=== PATIENT | male | born 1955 | race Caucasian/White ===

== ENCOUNTER 2018-02-21 15:40 | Emergency (ER) | payer MEDICARE, OTHER ==
[~2018-02-21] VITALS: Ht 188 cm; Wt 126.1 kg
--- OUTSIDE RECORDS SUMMARY | ~2018-02-21 | XMS | Clinical Summary ---
Demographics + + + | Address | [address] | | | [place] [address] | + + + | Home Phone | | + + + | Preferred Language | Unknown | + + + | Marital Status | | + + + | Yazdanism Affiliation | Unknown | + + + | Race | Unknown | + + + | Ethnic Group | Unknown | + + + Author + + + | Author | [facility] | | | and [place] | + + + | Organization | [facility] | | | and [place] | + + + | Address | Unknown | + + + | Phone | Unavailable | + + + Support + + + + + | Name | Relationship | Address | Phone | + + + + + | Carol Ross | ECON | [address] | | | | | [place] | | | | | [address] | | + + + + + | Kaley King | ECON | [address] | | | | | [place] [address] | | + + + + + Care Team Providers + +------+ + | Care Bottle Label Inspector Name | Role | Phone | + +------+ + | Edwin Clark DO | PP | | + +------+ + Allergies + + + + + + | Active Allergy | Reactions | Severity | Noted | Comments | | | | | Date | | + + + + + + | Cephalexin | | | 02//20 | | | | | | 18 | | + + + + + + | Guaifenesin | | | 02/20 | | | | | | 18 | | + + + + + + | Ketorolac | | | 20 | | | | | | 18 | | + + + + + + | Lisinopril | | | 20 | | | | | | 18 | | + + + + + + | Penicillins | | | 20 | | | | | | 18 | | + + + + + + | Propoxyphene | | | 20 | | | | | | 18 | | + + + + + + | Tramadol | | | 11/28/19 | | | | | | 18 | | + + + + + + Current Medications + + +---------+---------+------+------+-------+ | Prescription | Sig. | Disp. | Refills | Star | End | Statu | | | | | | t | Date | s | | | | | | Date | | | + + +---------+---------+------+------+-------+ | aspirin 81 mg EC | Take 81 mg by mouth | | | | | Activ | | tablet | Daily. | | | | | e | + + +---------+---------+------+------+-------+ | atorvaSTATin | Take 20 mg by mouth | | | | | Activ | | (LIPITOR) 20 mg | nightly. | | | | | e | | tablet | | | | | | | + + +---------+---------+------+------+-------+ | busPIRone (BUSPAR) | Take 10 mg by mouth | | | | | Activ | | 10 MG tablet | 2 times daily. | | | | | e | + + +---------+---------+------+------+-------+ | clindamycin | Apply topically 2 | | | | | Activ | | (CLEOCIN T) 1 % | times daily. Apply | | | | | e | | lotion | topically between | | | | | | | | toes twice daily on | | | | | | | | rash | | | | | | + + +---------+---------+------+------+-------+ | clopidogrel | Take 75 mg by mouth | | | | | Activ | | (PLAVIX) 75 mg | Daily. | | | | | e | | tablet | | | | | | | + + +---------+---------+------+------+-------+ | clotrimazole | Apply 1 Application | | | | | Activ | | (LOTRIMIN) 1% cream | topically 2 times | | | | | e | | | daily. Apply | | | | | | | | topically to right | | | | | | | | lower leg twice | | | | | | | | daily | | | | | | + + +---------+---------+------+------+-------+ | DULoxetine | Take 60 mg by mouth | | | | | Activ | | (CYMBALTA) [address] | Daily. | | | | | e | | capsule | | | | | | | + + +---------+---------+------+------+-------+ | insulin lispro | Inject 10 Units | | | | | Activ | | (HUMALOG KWIKPEN) | under the skin 3 | | | | | e | | 200 units/mL | times daily (before | | | | | | | concentrated | meals). | | | | | | | injection (pen) | | | | | | | + + +---------+---------+------+------+-------+ | isosorbide | Take 30 mg by mouth | | | | | Activ | | dinitrate (ISORDIL) | Daily. | | | | | e | | 30 MG tablet | | | | | | | + + +---------+---------+------+------+-------+ | Insulin Glargine | Inject 62 Units | | | | | Activ | | (LANTUS SOLOSTAR SC) | under the skin | | | | | e | | | nightly. 5x3ml | | | | | | + + +---------+---------+------+------+-------+ | pregabalin | Take 150 mg by mouth | | | | | Activ | | (LYRICA) 150 MG | 3 times daily. | | | | | e | | capsule | | | | | | | + + +---------+---------+------+------+-------+ | metFORMIN | Take 500 mg by mouth | | | | | Activ | | (GLUCOPHAGE) 500 mg | 2 times daily (with | | | | | e | | tablet | breakfast & | | | | | | | | dinner). | | | | | | + + +---------+---------+------+------+-------+ | metoprolol | Take 25 mg by mouth | | | | | Activ | | tartrate (LOPRESSOR) | 2 times daily. | | | | | e | | 25 mg tablet | | | | | | | + + +---------+---------+------+------+-------+ | PRODIGY LANCETS | by Does not apply | | | | | Activ | | 28G MISC | route 3 times daily. | | | | | e | | | Use three times | | | | | | | | daily to test blood | | | | | | | | glucose | | | | | | + + +---------+---------+------+------+-------+ | raNITIdine | Take 150 mg by mouth | | | | | Activ | | (ZANTAC) 150 mg | nightly. | | | | | e | | tablet | | | | | | | + + +---------+---------+------+------+-------+ | rOPINIRole | Take 2 mg by mouth | | | | | Activ | | (REQUIP) 2 MG tablet | Daily (at Noon). | | | | | e | + + +---------+---------+------+------+-------+ | rOPINIRole | Take 3 mg by mouth | | | | | Activ | | (REQUIP) 2 MG tablet | nightly. | | | | | e | + + +---------+---------+------+------+-------+ | terbinafine | Take 250 mg by mouth | | | 01/ | | Activ | | (LAMISIL) 250 MG | Daily. Take one | | | 7/20 | | e | | tablet | tablet daily until | | | 18 | | | | | gone | | | | | | + + +---------+---------+------+------+-------+ | insulin pen needle | by Other route as | | | | | Activ | | (PRODIGY SHORT PEN | needed for Other. | | | | | e | | NEEDLES) 31 gauge x | Use to inject with | | | | | | | 8 mm | insulin pen as | | | | | | | | directed. | | | | | | + + +---------+---------+------+------+-------+ | triamcinolone | Apply topically | | | / | | Activ | | (KENALOG) 0.1% cream | Three times a week. | | | 05/10 | | e | | | Apply topically to | | | 18 | | | | | right lower leg/foot | | | | | | | | 3 times a week at | | | | | | | | bandage change. | | | | | | + + +---------+---------+------+------+-------+ | ascorbic acid | Take 500 mg by mouth | | | | | Activ | | (VITAMIN C) 500 mg | Daily. | | | | | e | | tablet | | | | | | | + + +---------+---------+------+------+-------+ | cholecalciferol | Take 2,000 Units by | | | | | Activ | | (VITAMIN D-3) 1,000 | mouth Daily. | | | | | e | | units capsule | | | | | | | + + +---------+---------+------+------+-------+ | | Inhale 1 puff into | | | | | Activ | | albuterol-ipratropiu | the lungs every 6 | | | | | e | | m (COMBIVENT | hours as needed for | | | | | | | RESPIMAT) 100-20 | Shortness of Breath. | | | | | | | mcg/puff inhaler | | | | | | | + + +---------+---------+------+------+-------+ | docusate sodium | Take 100 mg by mouth | | | | | Activ | | (DOK) 100 mg capsule | Daily as needed for | | | | | e | | | Constipation. | | | | | | + + +---------+---------+------+------+-------+ | | Take 3 mLs by | | | | | Activ | | albuterol-ipratropiu | nebulization every 6 | | | | | e | | m (DUONEB) 2.5-0.5 | hours as needed for | | | | | | | mg/3 mL SOLN | Wheezing or | | | | | | | | Shortness of Breath. | | | | | | + + +---------+---------+------+------+-------+ | melatonin 3 mg | Take 3 mg by mouth | | | | | Activ | | TABS | nightly as needed | | | | | e | | | for Insomnia. | | | | | | + + +---------+---------+------+------+-------+ | naloxone (NARCAN) | 4 mg by Nasal route | | | | | Activ | | 4 mg/nasal spray | as needed for | | | | | e | | | Decreased | | | | | | | | Responsiveness. Only | | | | | | | | to be used when | | | | | | | | directed by 911, Md, | | | | | | | | or HSD. | | | | | | + + +---------+---------+------+------+-------+ | ondansetron | Take 4 mg by mouth | | | | | Activ | | (ZOFRAN ODT) 4 mg | every 12 hours as | | | | | e | | disintegrating | needed for Nausea. | | | | | | | tablet | | | | | | | + + +---------+---------+------+------+-------+ | oxyCODONE | Take 15 mg by mouth | | | | | Activ | | (ROXICODONE) 15 mg | EVERY 4 TO 6 HOURS | | | | | e | | immediate release | NEEDED for Pain. | | | | | | | tablet | For a max of 4 per | | | | | | | | day. | | | | | | + + +---------+---------+------+------+-------+ | torsemide | Take 5 mg by mouth | | | | | Activ | | (DEMADEX) 5 mg | Daily as needed. For | | | | | e | | tablet | edema, hold for | | | | | | | | SBP<100 | | | | | | + + +---------+---------+------+------+-------+ | omeprazole | Take 1 capsule by | 30 | 5 | 02/0 | | Activ | | (PRILOSEC) 40 MG | mouth every morning | capsule | | 7/20 | | e | | capsuleIndications: | (before breakfast). | | | 18 | | | | Gastroesophageal | | | | | | | | reflux disease | | | | | | | | without esophagitis | | | | | | | + + +---------+---------+------+------+-------+ | silver | Apply topically 2 | 400 g | 5 | 02/0 | | Activ | | sulfADIAZINE | times daily. | | | 7/20 | | e | | (SILVADENE) 1% | | | | 18 | | | | creamIndications: | | | | | | | | Venous stasis | | | | | | | | dermatitis of both | | | | | | | | lower extremities | | | | | | | + + +---------+---------+------+------+-------+ | glucose blood | Apply 1 each | 300 | 3 | 03/2 | | Activ | | test strips (PRODIGY | topically 3 times | each | | 04/10 | | e | | NO CODING BLOOD | daily. | | | 18 | | | | GLUC) | | | | | | | | stripIndications: | | | | | | | | Type 2 diabetes | | | | | | | | mellitus with | | | | | | | | hyperglycemia, | | | | | | | | without long-term | | | | | | | | current use of | | | | | | | | insulin (HCC) | | | | | | | + + +---------+---------+------+------+-------+ | | Take 1 tablet by | 28 | 0 | 04/0 | 04 | Disco | | sulfamethoxazole-tri | mouth 2 times daily | tablet | | 07/11 | 2/20 | ntinu | | methoprim (BACTRIM | for 14 days. | | | 18 | 18 | ed | | DS) 800-160 mg per | | | | | | | | tablet | | | | | | | + + +---------+---------+------+------+-------+ | | Take 1 tablet by | 28 | 0 | 04/1 | 04/1 | Disco | | sulfamethoxazole-tri | mouth 2 times daily | tablet | | 2/20 | 2/20 | ntinu | | methoprim (BACTRIM | for 14 days. | | | 18 | 18 | ed | | DS) 800-160 mg per | | | | | | | | tablet | | | | | | | + + +---------+---------+------+------+-------+ | | Take 1 tablet by | 28 | 0 | 04/1 | 04/1 | Disco | | sulfamethoxazole-tri | mouth 2 times daily | tablet | | 2/20 | 2/20 | ntinu | | methoprim (BACTRIM | for 14 days. | | | 18 | 18 | ed | | DS) 800-160 mg per | | | | | | | | tablet | | | | | | | + + +---------+---------+------+------+-------+ | | Take 1 tablet by | 28 | 0 | 04/1 | 04/2 | Expir | | sulfamethoxazole-tri | mouth 2 times daily | tablet | | 2/20 | 6/20 | ed | | methoprim (BACTRIM | for 14 days. | | | 18 | 18 | | | DS) 800-160 mg per | | | | | | | | tablet | | | | | | | + + +---------+---------+------+------+-------+ Active Problems + + + | Problem | Noted Date | + + + | Open wound of right foot | 02/07/2018 | + + + | History of penicillin allergy | 11/28/2017 | + + + | Tobacco use disorder, moderate, dependence | 11/28/2017 | + + + | Dependent on wheelchair | 11/28/2017 | + + + | Class 2 obesity due to excess calories with serious comorbidity | 11/28/2017 | | and body mass index (BMI) of 36.0 to 36.9 in adult | | + + + | BAL inhibitor intolerance | 11/28/2017 | + + + | Tramadol allergy | 11/28/2017 | + + + | technician terminal and repeater current use of opiate analgesic | 09/05/2017 | + + + | Type 2 diabetes mellitus with hyperglycemia, without long-term | 09/05/2017 | | current use of insulin (HCC) | | + + + | Qxvyfcs-Kglro-Zqkva disease type 1 | 09/05/2017 | + + + | Pure hypercholesterolemia | 09/05/2017 | + + + | 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 | 09/05/2017 | | condition | | + + + | Venous stasis dermatitis of both lower extremities | 09/05/2017 | + + + | Erectile dysfunction due to diseases classified elsewhere | 09/05/2017 | + + + | Anemia of chronic disease | 09/05/2017 | + + + | Atherosclerosis of [place] coronary artery of [place] heart without | 09/05/2017 | | angina pectoris | | + + + | MCC current use of antithrombotics/antiplatelets | 09/05/2017 | + + + | technician terminal and repeater current use of aspirin | 09/05/2017 | + + + | Chronic vasomotor rhinitis | 09/05/2017 | + + + | Polyneuropathy due to medical condition (HCC) | 09/05/2017 | + + + | Living in assisted living | 09/05/2017 | + + + Encounters +--------+ + + + + | Date | Type | Specialty | Care Team | Description | +--------+ + + + + | 02/21/ | Telephone | | Edwin Clark, | Foot Ulcer | | 2017 | | | DO | | +--------+ + + + + | 02/07/ | Telephone | | Edwin Clark, | Wound (accelerated | 2017 | | | DO | wound) | +--------+ + + + + | 01/31/ | Orders Only | | Edwin Clark, | | | 2017 | | | DO | | +--------+ + + + + | 01/31/ | Telephone | | Edwin Clark, | Medication Refill | | 2017 | | | DO | | +--------+ + + + + | 01/28/ | Telephone | | Edwin Clark, | Wound | | 2017 | | | DO | | +--------+ + + + + | 01/28/ | Orders Only | | Edwin Clark, | | | 2017 | | | DO | | +--------+ + + + + | 01/14/ | Telephone | | Valerie Joshi, | Diabetes | | 2017 | | | RN | (Prescription for | | | | | | test strips) | +--------+ + + + + | 01/14/ | Orders Only | | Edwin Clark, | Type 2 diabetes | | 2017 | | | DO | mellitus with | | | | | | hyperglycemia, | | | | | | without long-term | | | | | | current use of | | | | | | insulin (HCC) | +--------+ + + + + | 01/11/ | Orders Only | | Edwin Clark, | Type 2 diabetes | | 2018 | | | DO | mellitus with | | | | | | hyperglycemia, | | | | | | without long-term | | | | | | current use of | | | | | | insulin (HCC) | | | | | | (Primary Dx) | +--------+ + + + + | 01/09/ | Orders Only | | Edwin Clark, | Type 2 diabetes | | 2017 | | | DO | mellitus with | | | | | | hyperglycemia, | | | | | | without long-term | | | | | | current use of | | | | | | insulin (HCC) | | | | | | (Primary Dx) | +--------+ + + + + | 12/20/ | Telephone | | Edwin Clark, | Home Health | | 2017 | | | DO | | +--------+ + + + + | 11/30/ | Telephone | | Edwin Clark, | Records Request | | 2017 | | | DO | | +--------+ + + + + | 11/28/ | Office | | Edwin Clark, | Gastroesophageal | | 2017 | Visit | | DO | reflux disease | | | | | | without esophagitis | | | | | | (Primary Dx); Venous | | | | | | stasis dermatitis | | | | | | of both lower | | | | | | extremities; | | | | | | Zglqsmu-Gukpt-Fyuan | | | | | | disease type 1; Type | | | | | | 2 diabetes mellitus | | | | | | with hyperglycemia, | | | | | | without long-term | | | | | | current use of | | | | | | insulin (HCC); Long | | | | | | term current use of | | | | | | opiate analgesic; | | | | | | Living in assisted | | | | | | living | +--------+ + + + + | 11/26/ | Orders Only | | Edwin Clark, | | | 2017 | | | DO | | +--------+ + + + + from Last 3 Months Immunizations + + + + | Name | Dates Previously Given | Next Due | + + + + | PNEUMOCOCCAL | 09/07/2010 | | | POLYSACCHARIDE | | | | 23-VALENT (PPSV23) | | | + + + + Social History + [...] on file | | + + + Last Filed Vital Signs + + + + | Vital Sign | Reading | Time Taken | + + + + | Blood Pressure | 98/44 | 11/28/20171 PST | + + + + | Pulse | 66 | 11/28/20171 PST | + + + + | Temperature | 35.9 C (96.6 F) | 11/28/20171440 PST | + + + + | Respiratory Rate | 14 | 11/28/20171440 PST | + + + + | Oxygen Saturation | 94% | 11/28/20171440 PST | + + + + | Inhaled Oxygen | - | - | | Concentration | | | + + + + | Weight | 127 kg (280 lb) | 11/28/20171440 PST | + + + + | Height | 188 cm (6' 2") | 11/28/20171440 PST | + + + + | Body Mass Index | 35.95 | 11/28/2017 1441 PST | + + + + Plan of Treatment +--------+---------+ + + + | Date | Type | Specialty | Care Team | Description | +--------+---------+ + + + | 02/27/ | Office | | Edwin Clark, | | | 2017 | Visit | | DO [facility] | | | | | | [place], [place] | | | | | | [address] | | | | | | [phone] | | | | | | | | +--------+---------+ + + + + + + + + | Health Maintenance | Due Date | Last Done | Comments | + + + + + | Hepatitis C | | | | | Screening | 7 | | | + + + + + | Diabetic Eye Exam | | | | | (Bi-Annually) | 5 | | | + + + + + | Vaccine: | | | | | Dtap/Tdap/Td (1 - | 6 | | | | Tdap) | | | | + + + + + | COLON CANCER | | | | | SCREENING | 7 | | | | (COLONOSCOPY EVERY | | | | | 10 YEARS 50-75) | | | | + + + + + | Hemoglobin A1c Q3 | | 02/24/2011 | | | Months | 1 | | | + + + + + | Microalbumin | | | | | Screening | 5 | | | + + + + + | Statin Therapy | | | | | (optimal intensity) | 5 | | | + + + + + | Vaccine: Influenza | | | | | (Season Ended) | 8 | | | + + + + + | Diabetic Foot Exam | | 11/28/2017 | | | | 9 | | | + + + + + | Vaccine: | Completed | 09/07/2010 | | | Pneumococcal 19-64 | | | | | (PPSV23 only) Medium | | | | | Risk | | | | + + + + + Results Not on filefrom Last 3 Months Insurance + +--------+ +--------+ +---------+ | Payer | Benefi | Subscriber | Type | Phone | Address | | | t Plan | ID | | | | | | / | | | | | | | Group | | | | | + +--------+ +--------+ +---------+ | MEDICARE | MEDICA | xxxxxxxxxx | Medica | [phone] | | | RE | | re | [phone] | | | | PART A | | | | | | | AND B | | | | | + +--------+ +--------+ +---------+ | [place]ICAID [place] | MEDICA | xxxxxxxx | Medica | [phone] | | | [place] | | id | [phone] | | | | PLUS | | | | | + +--------+ +--------+ +---------+ + +--------+ +--------+ + + | Guarantor Name | Accoun | Relation to | Date | Phone | Billing Address | | | t Type | Patient | of | | | | | | | | | | + +--------+ +--------+ + + | RODRÍGUEZ CHI | Person | Self | [birth year] | Home: | [address] | | | [place] | | [phone] | [phone] | [place] [address] | | | pricila | | | [phone] | | + +--------+ +--------+ + +
--- OUTSIDE RECORDS SUMMARY | ~2018-02-21 | XMS | Encounter Summary ---
Demographics + + + | Address | [address] | | | [place] [address] | + + + | Home Phone | | + + + | Preferred Language | Unknown | + + + | Marital Status | | + + + | Temple Affiliation | Unknown | + + + | Race | Unknown | + + + | Ethnic Group | Unknown | + + + Author + + + | Author | [facility] | | | and [place] | + + + | Organization | [facility] | | | and [place] | + + + | Address | Unknown | + + + | Phone | Unavailable | + + + Support + + + + + | Name | Relationship | Address | Phone | + + + + + | Carol Ross | ECON | [address] | | | | | [place] | | | | | [address] | | + + + + + | Kaley King | ECON | [address] | | | | | [place] [address] | | + + + + + Care Team Providers + +------+ + | Care Rubberizing Mechanic Name | Role | Phone | + +------+ + | Edwin Clark DO | PCP | | + +------+ + Reason for Visit + + + | Reason | Comments | + + + | Medication Refill | | + + + Encounter Details +--------+ + + + + | Date | Type | Department | Care Team | Description | +--------+ + + + + | 01/31/ | Telephone | [place] [facility] | Edwin Clark, | Medication Refill | | 2017 | | [facility] | [address] [place] [address] | | | | | MEDICAL CL[facility] [address] | [facility], [place] | | | | | [address] [facility], | [address] | | | | | [place] [address] | [phone] | | | | | [phone] | | | +--------+ + + + + Social [...] as of this encounter Plan of Treatment +--------+---------+ + + + | Date | Type | Specialty | Care Team | Description | +--------+---------+ + + + | 02/27/ | Office | Primary Care | Edwin Clark, | | | 2017 | Visit | | DO [address] [place] [address] | | | | | | [place] | | | | | | [address] | | | | | | [phone] | | | | | | | | +--------+---------+ + + + as of this encounter Visit Diagnoses Not on filein this encounter"
--- OUTSIDE RECORDS SUMMARY | ~2018-02-21 | XMS | Encounter Summary ---
Demographics + + + | Address | [address] | | | [place] [address] | + + + | Home Phone | | + + + | Preferred Language | Unknown | + + + | Marital Status | | + + + | Episcopalian Affiliation | Unknown | + + + | Race | Unknown | + + + | Ethnic Group | Unknown | + + + Author + + + | Author | [facility] | | | and [place] | + + + | Organization | [facility] | | | and [place] | + + + | Address | Unknown | + + + | Phone | Unavailable | + + + Support + + + + + | Name | Relationship | Address | Phone | + + + + + | Carol Ross | ECON | [address] | | | | | [place] | | | | | [address] | | + + + + + | Kaley King | ECON | [address] [facility] [address] | | | | | [place] [address] | | + + + + + Care Team Providers + +------+ + | Care Corporate Traffic Manager Name | Role | Phone | + +------+ + | Edwin Clark DO | PCP | | + +------+ + Reason for Visit + + + | Reason | Comments | + + + | Home Health | | + + + Encounter Details +--------+ + + + + | Date | Type | Department | Care Team | Description | +--------+ + + + + | 12/20/ | Telephone | [place] [facility] | Edwin Clark, | Home Health | | 2018 | | [facility] | [address] [place] [address] | | | | | MEDICAL CLINIC [address] | [place], [place] | | | | | [address] [facility], | [address] | | | | | [place] [address] | [phone] | | | | | [phone] | | | +--------+ + + + [...] | 2017 | Visit | | DO [place] | | | | | | [place] | | | | | | [address] | | | | | | [phone] | | | | | | | | +--------+---------+ + + + as of this encounter Visit Diagnoses + + | Diagnosis | + + | Venous stasis dermatitis of both lower extremities - Primary | + +"
--- OUTSIDE RECORDS SUMMARY | ~2018-02-21 | XMS | Encounter Summary ---
Demographics + + + | Address | [address] | | | [place] [address] | + + + | Home Phone | | + + + | Preferred Language | Unknown | + + + | Marital Status | | + + + | Bahai Affiliation | Unknown | + + + | Race | Unknown | + + + | Ethnic Group | Unknown | + + + Author + + + | Author | [facility] | | | and [place] | + + + | Organization | [facility] | | | and [place] | + + + | Address | Unknown | + + + | Phone | Unavailable | + + + Support + + + + + | Name | Relationship | Address | Phone | + + + + + | Carol Ross | ECON | [address] | | | | | [place] | | | | | [address] | | + + + + + | Kaley King | ECON | [address] [facility] [address] | | | | | [place] [address] | | + + + + + Care Team Providers + +------+ + | Care Dog Or Horse Racing Official Name | Role | Phone | + +------+ + | Edwin Clark DO | PCP | | + +------+ + Reason for Visit + + + | Reason | Comments | + + + | Foot Ulcer | | + + + Encounter Details +--------+ + + + + | Date | Type | Department | Care Team | Description | +--------+ + + + + | 02/21/ | Telephone | [facility] | Edwin Clark, | Foot Ulcer | | 2018 | | [facility] | [address] [place] [address] | | | | | MEDICAL CLINIC [address] | [place], [place] | | | | | [address] [facility], | [address] | | | | | [place] [address] | [phone] | | | | | [phone] | | | +--------+ + + + [...] | 2017 | Visit | | DO [facility] [place] | | | | | | [place] | | | | | | [address] | | | | | | [phone] | | | | | | | | +--------+---------+ + + + as of this encounter Visit Diagnoses Not on filein this encounter"
--- OUTSIDE RECORDS SUMMARY | ~2018-02-21 | XMS | Encounter Summary ---
Demographics + + + | Address | [address] | | | [place] [address] | + + + | Home Phone | | + + + | Preferred Language | Unknown | + + + | Marital Status | | + + + | Uatsdin Affiliation | Unknown | + + + | Race | Unknown | + + + | Ethnic Group | Unknown | + + + Author + + + | Author | [facility] | | | and [place] | + + + | Organization | [facility] | | | and [place] | + + + | Address | Unknown | + + + | Phone | Unavailable | + + + Support + + + + + | Name | Relationship | Address | Phone | + + + + + | Carol Ross | ECON | [address] | | | | | [place] | | | | | [address] | | + + + + + | Kaley King | ECON | [address] | | | | | [place] [address] | | + + + + + Care Team Providers + +------+ + | Care Forestry Conservation Worker Name | Role | Phone | + +------+ + | Edwin Clark DO | PCP | | + +------+ + Encounter Details +--------+ + + + + | Date | Type | Department | Care Team | Description | +--------+ + + + + | 11/26/ | Orders Only | [facility] | Edwin Clark, | | | 2017 | | [facility] | DO [address] | | | | | [facility] [address] | [facility], [place] | | | | | [address] [place], | [address] | | | | | [place] [address] | [phone] | | | | | [phone] | | | +--------+ + + + + Social History + +-------+ +--------+------+ | Tobacco Use | Types | Packs/Day | Years | Date | | | | | Used | | + +-------+ +--------+------+ | Never Assessed | | | | | + +-------+ +--------+------+ + + + | Sex Assigned at [...] | 2017 | Visit | | DO [place] | | | | | | [place] | | | | | | [address] | | | | | | [phone] | | | | | | | | +--------+---------+ + + + as of this encounter Visit Diagnoses Not on filein this encounter"
--- OUTSIDE RECORDS SUMMARY | ~2018-02-21 | XMS | Clinical Summary ---
Demographics + + + | Address | [address] | | | [place] [address] | + + + | Home Phone | | + + + | Preferred Language | Unknown | + + + | Marital Status | | + + + | Denominational Affiliation | 1013 | + + + | Race | Unknown | + + + | Ethnic Group | Unknown | + + + Author + + + | Author | [facility] | + + + | Organization | [facility] [facility] | + + + | Address | Unknown | + + + | Phone | Unavailable | + + + Support + + +---------+ + | Name | Relationship | Address | Phone | + + +---------+ + | Carol Ross | ECON | Unknown | | + + +---------+ + Care Team Providers + +------+ + | Care Coffee Attendant Name | Role | Phone | + +------+ + | Josue Aparicio MD | PP | | + +------+ + Allergies + + + + + + | Active Allergy | Reactions | Severity | Noted | Comments | | | | | Date | | + + + + + + | Cephalexin | Other (See Comments) | Medium | 11/19/19 | weakness | | | | | 15 | | + + + + + + | Propoxyphene | Other (See Comments) | Medium | 01/15/20 | | | N-Acetaminophen | | | 12 | | + + + + + + | Gabapentin | Other (See Comments) | Medium | 01/15/20 | | | | | | 12 | | + + + + + + | Guaifenesin & | Anaphylaxis | High | 11/19/19 | | | Derivatives | | | 15 | | + + + + + + | Lisinopril | Other (See Comments) | Medium | 11/19/19 | Ondina on legs | | | | | 15 | | + + + + + + | Penicillins | Other (See Comments) | Medium | 01/15/20 | | | | | | 12 | | + + + + + + | Ketorolac | Other (See Comments) | Medium | 01/15/20 | | | | | | 12 | | + + + + + + | Tramadol | Other (See Comments) | Medium | 01/15/20 | | | | | | 12 | | + + + + + + Current Medications + + +-------+---------+------+------+-------+ | Prescription | Sig. | Disp. | Refills | Star | End | Statu | | | | | | t | Date | s | | | | | | Date | | | + + +-------+---------+------+------+-------+ | aspirin 81 MG | Take 81 mg by mouth | | | | | Activ | | tablet | daily. | | | | | e | + + +-------+---------+------+------+-------+ | docusate sodium | Take 100 mg by mouth | | | | | Activ | | (COLACE) 100 MG | daily as needed. | | | | | e | | capsule | | | | | | | + + +-------+---------+------+------+-------+ | metoprolol | Take 25 mg by mouth | | | | | Activ | | (LOPRESSOR) 50 MG | 2 (two) times daily. | | | | | e | | tablet | | | | | | | + + +-------+---------+------+------+-------+ | clopidogrel | Take 75 mg by mouth | | | | | Activ | | (PLAVIX) 75 MG | daily. | | | | | e | | tablet | | | | | | | + + +-------+---------+------+------+-------+ | insulin lispro | Inject 10 Units into | | | | | Activ | | protamine-insulin | the skin 3 (three) | | | | | e | | lispro (HUMALOG | times daily before | | | | | | | 50/50) (50-50) 100 | meals. Plus sliding | | | | | | | UNIT/ML SUSP | scale | | | | | | + + +-------+---------+------+------+-------+ | insulin glargine | Inject 62 Units into | | | | | Activ | | (LANTUS) 100 UNIT/ML | the skin nightly. | | | | | e | | injection | 73 units daily | | | | | | + + +-------+---------+------+------+-------+ | CHOLECALCIFEROL PO | Take 1,000 Units by | | | | | Activ | | | mouth 2 (two) times | | | | | e | | | daily. | | | | | | + + +-------+---------+------+------+-------+ | atorvastatin | Take 20 mg by mouth | | | | | Activ | | (LIPITOR) 20 MG | nightly. | | | | | e | | tablet | | | | | | | + + +-------+---------+------+------+-------+ | DULoxetine | Take 60 mg by mouth | | | | | Activ | | (CYMBALTA) [address] | daily. | | | | | e | | capsule | | | | | | | + + +-------+---------+------+------+-------+ | isosorbide | Take 30 mg by mouth | | | | | Activ | | dinitrate (ISORDIL) | daily. | | | | | e | | 30 MG tablet | | | | | | | + + +-------+---------+------+------+-------+ | ascorbic acid | Take 500 mg by mouth | | | | | Activ | | (VITAMIN C) 500 MG | daily. | | | | | e | | tablet | | | | | | | + + +-------+---------+------+------+-------+ | | Inhale 2 puffs into | | | | | Activ | | ipratropium-albutero | the lungs every 6 | | | | | e | | l (COMBIVENT) 18-103 | (six) hours as | | | | | | | MCG/ACT inhaler | needed for Wheezing. | | | | | | + + +-------+---------+------+------+-------+ | melatonin 3 MG | Take 3 mg by mouth | | | | | Activ | | TABS | nightly. | | | | | e | + + +-------+---------+------+------+-------+ | | Take 3 mLs by | | | | | Activ | | ipratropium-albutero | nebulization. | | | | | e | | l (DUO-NEB) 0.5-2.5 | | | | | | | | mg/3mL | | | | | | | + + +-------+---------+------+------+-------+ | ondansetron | Take 4 mg by mouth | | | | | Activ | | (ZOFRAN) 4 MG tablet | every 12 (twelve) | | | | | e | | | hours as needed for | | | | | | | | Nausea. | | | | | | + + +-------+---------+------+------+-------+ | oxycodone 10 MG | Take 10 mg by mouth | | | | | Activ | | tablet | every 6 (six) hours | | | | | e | | | as needed. | | | | | | + + +-------+---------+------+------+-------+ | torsemide | Take 5 mg by mouth | | | | | Activ | | (DEMADEX) 5 MG | daily as needed. | | | | | e | | tablet | | | | | | | + + +-------+---------+------+------+-------+ | ranitidine | Take 150 mg by mouth | | | | | Activ | | (ZANTAC) 150 MG | every evening. | | | | | e | | tablet | | | | | | | + + +-------+---------+------+------+-------+ | Nebulizers MISC | by Does not apply | | | | | Activ | | | route. | | | | | e | + + +-------+---------+------+------+-------+ | naloxone (NARCAN) | Inject into the | | | | | Activ | | 4 MG/10ML injection | vein once. | | | | | e | + + +-------+---------+------+------+-------+ | busPIRone (BUSPAR) | Take 10 mg by mouth | | | | | Activ | | 10 MG tablet | 2 (two) times daily. | | | | | e | + + +-------+---------+------+------+-------+ | pregabalin | Take 150 mg by mouth | | | | | Activ | | (LYRICA) 150 MG | 3 (three) times | | | | | e | | capsule | daily. | | | | | | + + +-------+---------+------+------+-------+ | metFORMIN | Take 500 mg by mouth | | | | | Activ | | (GLUCOPHAGE) 500 MG | 2 (two) times daily | | | | | e | | tablet | with meals. | | | | | | + + +-------+---------+------+------+-------+ | ropinirole | Take 2 mg by mouth | | | | | Activ | | (REQUIP) 2 MG tablet | daily. @@ noon | | | | | e | + + +-------+---------+------+------+-------+ Active Problems + + + | Problem | Noted Date | + + + | Preop cardiovascular exam | 05/02/2016 | + + + + + | Last Assessment & Plan: 60 yr old male with H/o CAD s/p PCI | | in [facility] EDY for unknown vessel-2009No chest pain- | | asymptomatic, preop for shoulder surgery under [facility] comeLimited | | exertion- wheel chair bound12/2014-Stress MPI - no ischemia EF | | 42%01/04/2016- Echo- normal LV functionContinue ASA, Plavix, | | Metoprolol, Simvastatin, ImdurEKG- NSR ?inf infarct- poor quality | | Hitesh is at moderate risk for perioperative cardiac events for | | planned shoulder surgery under [facility].If ASA/plavix to be held for | | surgery may resume as soon as possible.F/u in 3 months. | |F/u in 3 months. | + + + + + | Chest pain | 11/19/2014 | + + + + + | Last Assessment & Plan: chest pain- atypical- non | | reproducible- h/o CAD-PCIWill do Stress MPI to evaluate the | | progression of CAD2D echo to evaluate LV function- WMA, | | valvesContinue ASA, Plavix, Metoprolol, Simvastatin, ImdurLDL- | | 99, HDl- 35, Chs- 152, Cr- 0.98 | + + + + + | Venous insufficiency of both lower extremities | 04/20/2014 | + + + + + | Last Assessment & Plan: Dependent edema- especially getting | | worse with immobilityRecommend foot elevation, compression | | Cesar add Bumex 1mg and increase Metolazone 5mg dailyBMP | | in 1 weekFollow up in 4 weeks. | |Follow up in 4 weeks. | + + + + + | HTN (hypertension) | 04/06/2014 | + + + | Diabetic ulcer of left foot (HCC) | 04/06/2014 | + + + + + | Last Assessment & Plan: Left lateral foot ulcer appears to be | | granulating, and does not have any surrounding erythema or | | induration. I do not see any signs of superficial infection at | | this time. Results from recent wound culture have been well | | covered with the antibiotics already received, although I would | | advise against any further wound cultures at this time as he is | | likely to have colonization of the wound. There is concern for | | underlying osteomyelitis with his history of recent bone spur | | resection, so I will follow inflammatory markers once weekly over | | the next 4 weeks. We will follow-up in 4 weeks to review | | clinical progress and lab results. If inflammatory markers are | | increasing, imaging will be performed to assess for possible | | osteomyelitis. | + + + + + | Foot ulcer, left | 04/06/2014 | + + + | Pressure ulcer of foot, stage 3, left | 04/06/2014 | + + + | CMT (Eftsxvo-Ydftm-Jeyhr disease) | 01/15/2012 | + + + | Diabetes mellitus (HCC) | 01/15/2012 | + + + | Iron deficiency anemia | 01/15/2012 | + + + | Vitamin D deficiency | 01/15/2012 | + + + | CAD (coronary artery disease) | 01/15/2012 | + + + + + | Overview: S/P PCI. Last Assessment & Plan: H/o CAD s/p PCI | | in [facility] EDY for unknown vessel-2009No chest pain- | | asymptomaticLimited exertion- wheel chair bound12/2014-Stress MPI | | - no ischemia EF 42%Echo- normal LV functionContinue ASA, Plavix, | | Metoprolol, Simvastatin, ImdurEKG- NSR ?inf infarct- poor | | quality EKG | |Continue ASA, Plavix, Metoprolol, Simvastatin, Imdur | |EKG- NSR ?inf infarct- poor quality EKG | + + + + + | Proteinuria | 01/15/2012 | + + + | CKD (chronic kidney disease), stage II | 01/15/2012 | + + + | Peripheral neuropathy | 01/15/2012 | + + + | GERD (gastroesophageal reflux disease) | 01/15/2012 | + + + | Dyslipidemia | 01/15/2012 | + + + | Depression | 01/15/2012 | + + + | Generalized anxiety disorder | 01/15/2012 | + + + Family History Patient is adopted + + +------+ + | Medical History | Relation | Name | Comments | + + +------+ + | Cancer | Mother | | | + + +------+ + | Diabetes type II | Sister | | | + + +------+ + + +------+ + + | Relation | Name | Status | Comments | + +------+ + + | Father | | | | + +------+ + + | Mother | | | cancer | | | | (Age | | | | | 48) | | + +------+ + + | Sister | | | | + +------+ + + Social History + + + +--------+------+ | Tobacco Use | Types | Packs/Day | Years | Date | | | | | Used | | + + + +--------+------+ | Heavy Tobacco Smoker | Cigarettes, Cigars | 1 | 50 | | + + + +--------+------+ + +---+---+---+ | Smokeless Tobacco: | | | | | Former User | | | | + +---+---+---+ + + | Tobacco Cessation: Ready to Quit: Yes; Counseling Given: Yes | | Comments: chewed 20 years | + + + + +---------+ + | Alcohol Use | Drinks/We | oz/Week | Comments | | | ek | | | + + +---------+ + | Yes | 0 | 0.6 | | | | Standard | | | | | drinks or | | | | | | | | | | equivalen | | | | | t 1 Cans | | | | | of beer | | | + + +---------+ + + + + | Sex Assigned at | Date Recorded | | | | + + + | Not on file | | + + + Last Filed Vital Signs + + + + | Vital Sign | Reading | Time Taken | + + + + | Blood Pressure | 90/60 | 05/03/2017 12:35 PM PDT | + + + + | Pulse | 67 | 05/03/2017 12:35 PM PDT | + + + + | Temperature | 36.5 C (97.7 F) | 01/29/2015 7:00 AM PDT | + + + + | Respiratory Rate | 20 | 05/02/2016 11:38 AM PDT | + + + + | Oxygen Saturation | 97% | 05/03/2017 12:35 PM PDT | + + + + | Inhaled Oxygen | - | - | | Concentration | | | + + + + | Weight | 121.6 kg (268 lb) | 05/03/2017 12:35 PM PDT | + + + + | Height | 188 cm (6' 2") | 05/03/2017 12:35 PM PDT | + + + + | Body Mass Index | 34.41 | 05/03/2017 12:35 PM PDT | + + + + Plan of Treatment + + + + + | Health Maintenance | Due Date | Last Done | Comments | + + + + + | Diabetic Eye Exam | | | | | | 7 | | | + + + + + | Diabetic Foot Exam | | | | | | 7 | | | + + + + + | Vaccine: | | | | | Dtap/Tdap/Td (1 - | 6 | | | | Tdap) | | | | + + + + + | Vaccine: | | | | | Pneumococcal 19- | 6 | | | | (PPSV23 only) Medium | | | | | Risk (1 of 1 - | | | | | PPSV23) | | | | + + + + + | Colon Cancer | | | | | Screening | 7 | | | | (Colonoscopy) | | | | + + + + + | Microalbumin | | 07/10/2013, 01/01/2013, | | | Screening | 4 | 06/28/2012 | | + + + + + | Hemoglobin A1c | | 07/07/2014, 05/23/2013 | | | | 4 | | | + + + + + | Vaccine: Influenza | | | | | (Season Ended) | 8 | | | + + + + + Results Not on filefrom Last 3 Months Insurance + +--------+ +------+-------+ + | Payer | Benefi | Subscriber | Type | Phone | Address | | | t Plan | ID | | | | | | / | | | | | | | Group | | | | | + +--------+ +------+-------+ + | MEDICARE | MEDICA | xxxxxxxxxx | | | [address] | | | RE | | | | [place] [phone] | | | IP-OP | | | | | + +--------+ +------+-------+ + | MEDICAID | MEDICA | xxxxxxxx | | | [address] | | | ID | | | | [place] | | | [place] | | | | [address] | + +--------+ +------+-------+ + + +--------+ +--------+ + + | Guarantor Name | Accoun | Relation to | Date | Phone | Billing Address | | | t Type | Patient | of | | | | | | | | | | + +--------+ +--------+ + + | RODRÍGUEZ [facility]I | Person | Self [birth year] | Home: | [address] | | | al/Fam | | 1954 | [phone] [address] | | | [place] | | | [phone] | [place] [address] | + +--------+ +--------+ + +
--- OUTSIDE RECORDS SUMMARY | ~2018-02-21 | XMS | Clinical Summary ---
Demographics + + + | Address | [address] | | | [place] [address] | + + + | Home Phone | | + + + | Preferred Language | Unknown | + + + | Marital Status | Single | + + + | Tenriism Affiliation | CAT | + + + | Race | White | + + + | Ethnic Group | Not or | + + + Author + + + | Author | [facility] | + + + | Organization | [facility] | + + + | Address | Unknown | + + + | Phone | Unavailable | + + + Care Team Providers + +------+ + | Care Ammonium Hydroxide Operator Name | Role | Phone | + +------+ + | No Pcp Per Patient | PP | Unavailable | + +------+ + Source Comments PERLA is fully live on both [facility] Amb[facility] and [facility] InPatient.[facility] Allergies Not on File Current Medications Not on file Active Problems Not on file Social History + +-------+ +--------+------+ | Tobacco [...] on file | | + + + Plan of Treatment + + + + + | Health Maintenance | Due Date | Last Done | Comments | + + + + + | INFLUENZA VACCINE | | | | | (FLU SHOT) | 8 | | | + + + + + Results Not on filefrom Last 3 Months"
--- OUTSIDE RECORDS SUMMARY | ~2018-02-21 | XMS | Encounter Summary ---
Demographics + + + | Address | [address] | | | [place] [address] | + + + | Home Phone | | + + + | Preferred Language | Unknown | + + + | Marital Status | | + + + | Protestant Affiliation | Unknown | + + + | Race | Unknown | + + + | Ethnic Group | Unknown | + + + Author + + + | Author | [facility] | | | and [place] | + + + | Organization | [facility] | | | and [facility] | + + + | Address | Unknown | + + + | Phone | Unavailable | + + + Support + + + + + | Name | Relationship | Address | Phone | + + + + + | Carol Ross | ECON | [address] | | | | | [place] | | | | | [address] | | + + + + + | Kaley King | ECON | [address] | | | | | [place] [address] | | + + + + + Care Team Providers + +------+ + | Care Taper Printed Circuit Layout Name | Role | Phone | + +------+ + | Edwin Clark DO | PCP | | + +------+ + Reason for Visit + + + | Reason | Comments | + + + | Records Request | | + + + Encounter Details +--------+ + + + + | Date | Type | Department | Care Team | Description | +--------+ + + + + | 11/30/ | Telephone | [facility] | Edwin Clark, | Records Request | | 2018 | | [facility] | [address] | | | | | [address] | [place], [place] | | | | | [address] [facility], | [address] | | | | | [place] [address] | [phone] | | | | | [phone] | | | +--------+ + + + [...] | 2017 | Visit | | [place] [address] [place] [address] | | | | | | [place] | | | | | | [address] | | | | | | [phone] | | | | | | | | +--------+---------+ + + + as of this encounter Visit Diagnoses Not on filein this encounter"
--- OUTSIDE RECORDS SUMMARY | ~2018-02-21 | XMS | Encounter Summary ---
Demographics + + + | Address | [address] | | | [place] [address] | + + + | Home Phone | | + + + | Preferred Language | Unknown | + + + | Marital Status | | + + + | Bahai Affiliation | Unknown | + + + | Race | Unknown | + + + | Ethnic Group | Unknown | + + + Author + + + | Author | [facility] | | | and [place] | + + + | Organization | [facility] | | | and [place] | + + + | Address | Unknown | + + + | Phone | Unavailable | + + + Support + + + + + | Name | Relationship | Address | Phone | + + + + + | Carol Ross | ECON | [address] | | | | | [place] | | | | | [address] | | + + + + + | Kaley King | ECON | [address] | | | | | [place] [address] | | + + + + + Care Team Providers + +------+ + | Care Compressor Operator Portable Name | Role | Phone | + [...] Records Request | | 2018 | | [facility] | [address] | | | | | MEDICAL CL[address] | [place], [place] | | | | | [address] [facility], | [address] | | | | | [place] [address] | [phone] | | | | | [phone] | | | +--------+ + + + [...] | 2017 | Visit | | [place] [address] [place] [address] | | | | | | [place] | | | | | | [address] | | | | | | [phone] | | | | | | | | +--------+---------+ + + + as of this encounter Visit Diagnoses Not on filein this encounter"
--- OUTSIDE RECORDS SUMMARY | ~2018-02-21 | XMS | Encounter Summary ---
Demographics + + + | Address | [address] | | | [place] [address] | + + + | Home Phone | | + + + | Preferred Language | Unknown | + + + | Marital Status | | + + + | Sikhism Affiliation | Unknown | + + + | Race | Unknown | + + + | Ethnic Group | Unknown | + + + Author + + + | Author | [facility] | | | and [place] | + + + | Organization | [facility] | | | and [place] | + + + | Address | Unknown | + + + | Phone | Unavailable | + + + Support + + + + + | Name | Relationship | Address | Phone | + + + + + | Carol Ross | ECON | [address] | | | | | [place] | | | | | [address] | | + + + + + | Kaley King | ECON | [address] [facility] [address] | | | | | [place] [address] | | + + + + + Care Team Providers + +------+ + | Care Sanding Machine Buffer Name | Role | Phone | + +------+ + | Edwin Clark DO | PCP | | + +------+ + Reason for Visit + + + | Reason | Comments | + + + | Follow-up | staying the same | + + + Encounter Details +--------+---------+ + + + | Date | Type | Department | Care Team | Description | +--------+---------+ + + + | 11/28/ | Office | [facility] | Edwin Clark, | Gastroesophageal | | 2018 | Visit | [facility] | DO [address] | reflux disease | | | | [facility] | [place], [place] | without esophagitis | | | | [address] [place], | [address] | (Primary Dx); Venous | | | | [place] [address] | [phone] | stasis dermatitis | | | | [phone] | | of both lower | | | | | | extremities; | | | | | | Mgaxpxv-Kpkna-Ipzcn | | | | | | disease [...] | | | | | living | +--------+---------+ + + + Social History + +-------+ [...] + + + as of this encounter Last Filed Vital Signs + + + + | Vital Sign | Reading | Time Taken | + + + + | Blood Pressure | 98/44 | 11/28/20171440 PST | + + + + | Pulse | 66 | 11/28/20171440 PST | + + + [...] | Body Mass Index | 35.95 | 11/28/20171440 PST | + + + + in this encounter Progress Notes Edwin Clark DO - 11/28/2017 1430 PSTFormatting of this note may be different from th e original. Patient ID: Rodríguez Sanz is a 62 y.o. year old male Chief Complaint: Chief Complaint Patient presents with Follow-up staying the same Assessment and Plan: 1. Gastroesophageal reflux disease without esophagitis - omeprazole (PRILOSEC) 40 MG capsule; Take 1 capsule by mouth every morning (before breakf ast). Dispense: 30 capsule; Refill: 5 2. Venous stasis dermatitis of both lower extremities - silver sulfADIAZINE (SILVADENE) 1% cream; Apply topically 2 times daily. Dispense: 400 g; Refill: 5 3. Uesdjev-Qkqre-Vcful disease type 1 Stable 4. Type 2 diabetes mellitus with hyperglycemia, without long-term current use of insulin (H CC) Abnormal diabetic foot exam 5. retirement current use of opiate analgesic Stable 6. Living in assisted living Stable Subjective: Foot Pain This is a chronic problem. The current episode started more than 1 month ago. The problem o ccurs every several days. The problem has been unchanged. Pertinent negatives include no abd ominal pain, anorexia, coughing, fever, nausea or sore throat. Emesis This is a recurrent problem. The current episode started more than 1 month ago. The problem occurs 2 to 4 times per day. The problem has been unchanged. Pertinent negatives include no abdominal pain, anorexia, coughing, fever, nausea or sore throat. He has tried nothing for the symptoms. Allergies: Allergies Allergen Reactions Cephalexin Guaifenesin Ketorolac Lisinopril Penicillins Propoxyphene Tramadol No past medical history on file. No past surgical history on file. No family history on file. Social History: Social History Social History Marital status: Spouse name: N/A Number of children: N/A Years of education: N/A Occupational History Not on file. Social History Main Topics Smoking status: Current Every Day Smoker Packs/day: 1.00 Smokeless tobacco: Never Used Alcohol use Yes Comment: rare Drug use: No Sexual activity: Not on file Other Topics Concern Not on file Social History Narrative No narrative on file Medications: Current Outpatient Prescriptions Medication Sig Dispense Refill albuterol-ipratropium (COMBIVENT RESPIMAT) 100-20 mcg/puff inhaler Inhale 1 puff into t he lungs every 6 hours as needed for Shortness of Breath. albuterol-ipratropium (DUONEB) 2.5-0.5 mg/3 mL SOLN Take 3 mLs by nebulization every 6 hours as needed for Wheezing or Shortness of Breath. ascorbic acid (VITAMIN C) 500 mg tablet Take 500 mg by mouth Daily. aspirin 81 mg EC tablet Take 81 mg by mouth Daily. atorvaSTATin (LIPITOR) 20 mg tablet Take 20 mg by mouth nightly. busPIRone (BUSPAR) 10 MG tablet Take 10 mg by mouth 2 times daily. cholecalciferol (VITAMIN D-3) 1,000 units capsule Take 2,000 Units by mouth Daily. clindamycin (CLEOCIN T) 1 % lotion Apply topically 2 times daily. Apply topically betw een toes twice daily on rash clopidogrel (PLAVIX) 75 mg tablet Take 75 mg by mouth Daily. clotrimazole (LOTRIMIN) 1% cream Apply 1 Application topically 2 times daily. Apply top ically to right lower leg twice daily docusate sodium (DOK) 100 mg capsule Take 100 mg by mouth Daily as needed for Constipat ion. DULoxetine (CYMBALTA) [address] capsule Take 60 mg by mouth Daily. Glucose Blood ([facility] BLOOD GLUCOSE TEST ) by In Vitro route. Use three times daily to test blood glucose Insulin Glargine (LANTUS SOLOSTAR SC) Inject 62 Units under the skin nightly. 5x3ml insulin lispro (HUMALOG KWIKPEN) 200 units/mL concentrated injection (pen) Inject 10 Un its under the skin 3 times daily (before meals). insulin pen needle ([facility] SHORT PEN NEEDLES) 31 gauge x 8 mm by Other route as needed for Other. Use to inject with insulin pen as directed. isosorbide dinitrate (ISORDIL) 30 MG tablet Take 30 mg by mouth Daily. melatonin 3 mg TABS Take 3 mg by mouth nightly as needed for Insomnia. metFORMIN (GLUCOPHAGE) 500 mg tablet Take 500 mg by mouth 2 times daily (with breakfast & dinner). metoprolol tartrate (LOPRESSOR) 25 mg tablet Take 25 mg by mouth 2 times daily. naloxone (NARCAN) 4 mg/nasal spray 4 mg by Nasal route as needed for Decreased Responsi veness. Only to be used when directed by Marguerite, , or HSD. omeprazole (PRILOSEC) 40 MG capsule Take 1 capsule by mouth every morning (before break fast). 30 capsule 5 ondansetron (ZOFRAN ODT) 4 mg disintegrating tablet Take 4 mg by mouth every 12 hours a s needed for Nausea. oxyCODONE (ROXICODONE) 15 mg immediate release tablet Take 15 mg by mouth EVERY 4 TO 6 HOURS NEEDED for Pain. For a max of 4 per day. pregabalin (LYRICA) 150 MG capsule Take 150 mg by mouth 3 times daily. PRODIGY LANCETS 28G MISC by Does not apply route 3 times daily. Use three times daily t o test blood glucose raNITIdine (ZANTAC) 150 mg tablet Take 150 mg by mouth nightly. rOPINIRole (REQUIP) 2 MG tablet Take 2 mg by mouth Daily (at Noon). rOPINIRole (REQUIP) 2 MG tablet Take 3 mg by mouth nightly. silver sulfADIAZINE (SILVADENE) 1% cream Apply topically 2 times daily. 400 g 5 terbinafine (LAMISIL) 250 MG tablet Take 250 mg by mouth Daily. Take one tablet daily u ntil gone torsemide (DEMADEX) 5 mg tablet Take 5 mg by mouth Daily as needed. For edema, hold for SMP<100 triamcinolone (KENALOG) 0.1% cream Apply topically Three times a week. Apply topically to right lower leg/foot 3 times a week at bandage change. No current facility-administered medications for this visit. Review of Systems Constitutional: Negative for fever. HENT: Negative for sore throat. Respiratory: Negative for cough. Gastrointestinal: Negative for abdominal pain, anorexia and nausea. Objective: Vitals: BP 98/44 | Pulse 66 | Temp 35.9 C (96.6 F) (Temporal) | Resp 14 | Ht 1.88 m (6' 2") | Wt 127 kg (280 lb) | SpO2 94% | BMI 35.95 kg/m Physical Exam Constitutional: He appears well-developed and well-nourished. No distress. Cardiovascular: Normal rate, regular rhythm and normal heart sounds. Exam reveals no wooten p and no friction rub. No murmur heard. Pulmonary/Chest: Effort normal and breath sounds normal. No respiratory distress. He has no wheezes. He has no rales. Abdominal: Soft. Bowel sounds are normal. He exhibits no distension and no mass. There is n o tenderness. There is no rebound and no guarding. Musculoskeletal: He exhibits edema. Skin: There is erythema. Right lower leg Nursing note and vitals reviewed. in this encounter Plan of Treatment +--------+---------+ + + + | Date | Type | Specialty | Care Team | Description | +--------+---------+ + + + | 02/27/ | Office | Primary Care | Edwin Clark, | | | 2017 | Visit | | DO [facility] | | | | | | [facility], [place] | | | | | | [address] | | | | | | [phone] | | | | | | | | +--------+---------+ + + + as of this encounter Visit Diagnoses + + | Diagnosis | + + | Gastroesophageal reflux disease without esophagitis - Primary | + + | Esophageal reflux | + + | Venous stasis dermatitis of both lower extremities | + + | Yydujnn-Owvdq-Xdatb disease type 1 | + + | Type 2 diabetes mellitus with hyperglycemia, without long-term current use of insulin | | (HCC) | + + | retirement current use of opiate analgesic | + + | Encounter for long-term (current) use of other medications | + + | Living in assisted living | + +
--- OUTSIDE RECORDS SUMMARY | ~2018-02-21 | XMS | Encounter Summary ---
Demographics + + + | Address | [address] | | | [place] [address] | + + + | Home Phone | | + + + | Preferred Language | Unknown | + + + | Marital Status | | + + + | Orthodoxy Affiliation | Unknown | + + + | Race | Unknown | + + + | Ethnic Group | Unknown | + + + Author + + + | Author | [facility] | | | and [place] | + + + | Organization | [facility] | | | and [place] | + + + | Address | Unknown | + + + | Phone | Unavailable | + + + Support + + + + + | Name | Relationship | Address | Phone | + + + + + | Carol Ross | ECON | [address] | | | | | [place] | | | | | [address] | | + + + + + | Kaley King | ECON | [address] [facility] [address] | | | | | [place] [address] | | + + + + + Care Team Providers + +------+ + | Care Healthcare Corporate Account Director Name | Role | Phone | + +------+ + | Edwin Clark DO | PCP | | + +------+ + Reason for Visit +--------+ + | Reason | Comments | +--------+ + | Wound | | +--------+ + Encounter Details +--------+ + + + + | Date | Type | Department | Care Team | Description | +--------+ + + + + | 01/28/ | Telephone | [facility] | Edwin Clark, | Wound | | 2018 | | [facility] | DO [address] [place] | | | | | [facility] [address] | [facility], [place] | | | | | [address] [facility], | [address] | | | | | [place] [address] | [phone] | | | | | [phone] | | | +--------+ + + + [...] | 2017 | Visit | | DO [address] | | | | | | [place] | | | | | | [address] | | | | | | [phone] | | | | | | | | +--------+---------+ + + + as of this encounter Visit Diagnoses Not on filein this encounter"
--- OUTSIDE RECORDS SUMMARY | ~2018-02-21 | XMS | Clinical Summary ---
Demographics + + + | Address | [address] | | | [place] [address] | + + + | Home Phone | | + + + | Preferred Language | Unknown | + + + | Marital Status | | + + + | Alevism Affiliation | 1013 | + + + | Race | Unknown | + + + | Ethnic Group | Unknown | + + + Author + + + | Author | [facility] | + + + | Organization | [facility] | + + + | Address | Unknown | + + + | Phone | Unavailable | + + + Support + + +---------+ + | Name | Relationship | Address | Phone | + + +---------+ + | Carol Ross | ECON | Unknown | | + + +---------+ + Care Team Providers + +------+ + | Care Creative Engagement Director Name | Role | Phone | [...] H/o CAD s/p PCI | | in [facility] for unknown [id number] chest pain- [...] 04/06/2014 | + + + | CMT (Bzxjbhc-Vuglh-Ahzyo disease) | 01/15/2012 | + + + [...] H/o CAD s/p PCI | | in [facility] for unknown [id number] chest pain- [...] RE | | | | [place] [address] | | | IP-OP | | | | | + +--------+ +------+-------+ + | MEDICAID | MEDICA | xxxxxxxx | | | [address] | | | ID | | | | [place] | | | [place] | | | | [address] | + +--------+ +------+-------+ + + +--------+ [...] | | | [address] | [place] [address] | + +--------+ +--------+ + +
--- OUTSIDE RECORDS SUMMARY | ~2018-02-21 | XMS | Encounter Summary ---
Demographics + + + | Address | [address] | | | [place] [address] | + + + | Home Phone | | + + + | Preferred Language | Unknown | + + + | Marital Status | | + + + | Yarsanism Affiliation | Unknown | + + + | Race | Unknown | + + + | Ethnic Group | Unknown | + + + Author + + + | Author | [facility] | | | and [place] | + + + | Organization | [facility] | | | and [place] | + + + | Address | Unknown | + + + | Phone | Unavailable | + + + Support + + + + + | Name | Relationship | Address | Phone | + + + + + | Carol Ross | ECON | [address] | | | | | [place] | | | | | [address] | | + + + + + | Kaley King | ECON | [address] [facility] [address] | | | | | [place] [address] | | + + + + + Care Team Providers + +------+ + | Care Learning And Development Assistant Name | Role | Phone | + +------+ + | Edwin Clark DO | PCP | | + +------+ + Encounter Details +--------+ + + + + | Date | Type | Department | Care Team | Description | +--------+ + + + + | 01/11/ | Orders Only | [facility] | Edwin Clark, | Type 2 diabetes | | 2018 | | [facility] | DO [address] | mellitus with | | | | [facility] [address] | [place], [place] | hyperglycemia, | | | | [address] [facility], | [address] | without long-term | | | | [place] [address] | [phone] | current use of | | | | [phone] | | insulin (HCC) | | | [...] 2017 | Visit | | DO [address] [place] | | | | | | [place], [place] | | | | | | [address] | | | | | | [phone] | | | | | | | | +--------+---------+ + + + as of this encounter Visit Diagnoses + + | Diagnosis | + + | Type 2 diabetes mellitus with hyperglycemia, without long-term current use of insulin | | (HCC) - Primary | + +"
--- OUTSIDE RECORDS SUMMARY | ~2018-02-21 | XMS | Encounter Summary ---
Demographics + + + | Address | [address] | | | [place] [address] | + + + | Home Phone | | + + + | Preferred Language | Unknown | + + + | Marital Status | | + + + | Mormonism Affiliation | Unknown | + + + | Race | Unknown | + + + | Ethnic Group | Unknown | + + + Author + + + | Author | [facility] | | | and [place] | + + + | Organization | [facility] | | | and [place] | + + + | Address | Unknown | + + + | Phone | Unavailable | + + + Support + + + + + | Name | Relationship | Address | Phone | + + + + + | Carol Ross | ECON | [address] | | | | | [place] | | | | | [address] | | + + + + + | Kaley King | ECON | [address] [facility] [address] | | | | | [place] [address] | | + + + + + Care Team Providers + +------+ + | Care Hose Finisher Name | Role | Phone | + +------+ + | Edwin Clark DO | PCP | | + +------+ + Encounter Details +--------+ + + + + | Date | Type | Department | Care Team | Description | +--------+ + + + + | 01/31/ | Orders Only | [facility] | Edwin Clark, | | | 2017 | | [facility] | DO [address] | | | | | [facility] | [place], [place] | | | | | [address] [place], | [address] | | | | | [place] [address] | [phone] | | | | | [phone] | | | +--------+ + + + [...] | 2017 | Visit | | DO [address] [place] [address] | | | | | | [place] | | | | | | [address] | | | | | | [phone] | | | | | | | | +--------+---------+ + + + as of this encounter Visit Diagnoses Not on filein this encounter"
--- OUTSIDE RECORDS SUMMARY | ~2018-02-21 | XMS | Encounter Summary ---
Demographics + + + | Address | [address] | | | [place] [address] | + + + | Home Phone | | + + + | Preferred Language | Unknown | + + + | Marital Status | | + + + | Muslim Affiliation | Unknown | + + + | Race | Unknown | + + + | Ethnic Group | Unknown | + + + Author + + + | Author | [facility] | | | and [place] | + + + | Organization | [facility] | | | and [place] | + + + | Address | Unknown | + + + | Phone | Unavailable | + + + Support + + + + + | Name | Relationship | Address | Phone | + + + + + | Carol Ross | ECON | [address] | | | | | [place] | | | | | [address] | | + + + + + | Kaley King | ECON | [address] [facility] [address] | | | | | [place] [address] | | + + + + + Care Team Providers + +------+ + | Care Racking Technician Name | Role | Phone | + [...] | | | MEDICAL CL[facility] [address] | [facility], [place] | | | | | [address] [place], | [address] | | | | | [place] [address] | [phone] | | | | | [phone] | | | +--------+ + + + [...] | 2017 | Visit | | DO [place] | | | | | | [place] | | | | | | [address] | | | | | | [phone] | | | | | | | | +--------+---------+ + + + as of this encounter Visit Diagnoses Not on filein this encounter"
--- OUTSIDE RECORDS SUMMARY | ~2018-02-21 | XMS | Clinical Summary ---
Demographics + + + | Address | [address] | | | [place] [address] | + + + | Home Phone | | + + + | Preferred Language | Unknown | + + + | Marital Status | Single | + + + | Mu-Ism Affiliation | CAT | + + + | Race | White | + + + | Ethnic Group | Not or | + + + Author + + + | Author | [facility] | + + + | Organization | [facility] | + + + | Address | Unknown | + + + | Phone | Unavailable | + + + Care Team Providers + +------+ + | Care Sling Operator Name | Role | Phone | + +------+ + | No Pcp Per Patient | PP | Unavailable | + +------+ + Source Comments [facility] is fully live on both [facility] and [facility] Allergies Not on File Current Medications Not [...]
--- OUTSIDE RECORDS SUMMARY | ~2018-02-21 | XMS | Encounter Summary ---
Demographics + + + | Address | [address] | | | [place] [address] | + + + | Home Phone | | + + + | Preferred Language | Unknown | + + + | Marital Status | | + + + | Alevism Affiliation | Unknown | + + + | Race | Unknown | + + + | Ethnic Group | Unknown | + + + Author + + + | Author | [facility] | | | and [place] | + + + | Organization | [facility] | | | and [place] | + + + | Address | Unknown | + + + | Phone | Unavailable | + + + Support + + + + + | Name | Relationship | Address | Phone | + + + + + | Carol Ross | ECON | [address] | | | | | [place] | | | | | [address] | | + + + + + | Kaley King | ECON | [address] [facility] [address] | | | | | [place] [address] | | + + + + + Care Team Providers + +------+ + | Care Compliance Specialist Name | Role | Phone | + +------+ + | Edwin Clark DO | PCP | | + +------+ + Encounter Details +--------+ + + + + | Date | Type | Department | Care Team | Description | +--------+ + + + + | 01/09/ | Orders Only | [facility] | Edwin Clark, | Type 2 diabetes | | 2018 | | [facility] | DO [address] | mellitus with | | | | [facility] [address] | [place], [place] | hyperglycemia, | | | | [address] [facility], | [address] | without long-term | | | | [place] [address] | [phone] | current use of | | | | [phone] | | insulin (HCC) | | | [...] Visit | | DO [address] | | | | | | [place], [place] | | | | | | [address] | | | | | | [phone] | | | | | | | | +--------+---------+ + + + + +--------+ + + | Name | Priori | Associated Diagnoses | Order Schedule | | | ty | | | + +--------+ + + | Comprehensive Metabolic Panel | Routin | Type 2 diabetes | 1 Occurrences | | | e | mellitus with | starting 01/09/2018 | | | | hyperglycemia, | until 01/09/2019 | | | | without long-term | | | | | current use of | | | | | insulin (HCC) | | + +--------+ + + | Hemoglobin A1C | Routin | Type 2 diabetes | 1 Occurrences | | | e | mellitus with | starting 01/09/2018 | | | | hyperglycemia, | until 01/09/2019 | | | | without long-term | | | | | current use of | | | | | insulin (HCC) | | + +--------+ + + | Microalbumin/Creatinine Ratio, | Routin | Type 2 diabetes | 1 Occurrences | | Urine | e | mellitus with | starting 01/09/2018 | | | | hyperglycemia, | until 01/09/2019 | | | | without long-term | | | | | current use of | | | | | insulin ([facility]) | | + +--------+ + + | Lipid Panel | Routin | Type 2 diabetes | 1 Occurrences | | | e | mellitus with | starting 01/09/2018 | | | | hyperglycemia, | until 01/09/2019 | | | | without long-term | | | | | current use of | | | | | insulin (HCC) | | + +--------+ + + as of this encounter Visit Diagnoses + + | Diagnosis | + + | Type 2 diabetes mellitus with hyperglycemia, without long-term current use of insulin | | (HCC) - Primary | + +"
--- OUTSIDE RECORDS SUMMARY | ~2018-02-21 | XMS | Encounter Summary ---
Demographics + + + | Address | [address] | | | [place] [address] | + + + | Home Phone | | + + + | Preferred Language | Unknown | + + + | Marital Status | | + + + | Taoism Affiliation | Unknown | + + + | Race | Unknown | + + + | Ethnic Group | Unknown | + + + Author + + + | Author | [facility] | | | and [place] | + + + | Organization | [facility] | | | and [place] | + + + | Address | Unknown | + + + | Phone | Unavailable | + + + Support + + + + + | Name | Relationship | Address | Phone | + + + + + | Carol Ross | ECON | [address] | | | | | [place] | | | | | [address] | | + + + + + | Kaley King | ECON | [address] [facility] [address] | | | | | [place] [address] | | + + + + + Care Team Providers + +------+ + | Care Cephalometric Analyst Name | Role | Phone | [...] Medication Refill | | 2017 | | [facility] | [address] [place] [address] | | | | | MEDICAL CL[facility] [address] | [facility], [place] | | | | | [address] [facility], | [address] | | | | | [place] [address] | [phone] | | | | | [phone] | | | +--------+ + + + [...] | 2017 | Visit | | DO [address] [place] [address] | | | | | | [place] | | | | | | [address] | | | | | | [phone] | | | | | | | | +--------+---------+ + + + as of this encounter Visit Diagnoses Not on filein this encounter"
--- OUTSIDE RECORDS SUMMARY | ~2018-02-21 | XMS | Encounter Summary ---
Demographics + + + | Address | [address] | | | [place] [address] | + + + | Home Phone | | + + + | Preferred Language | Unknown | + + + | Marital Status | | + + + | Shinto Affiliation | Unknown | + + + | Race | Unknown | + + + | Ethnic Group | Unknown | + + + Author + + + | Author | [facility] | | | and [place] | + + + | Organization | [facility] | | | and [place] | + + + | Address | Unknown | + + + | Phone | Unavailable | + + + Support + + + + + | Name | Relationship | Address | Phone | + + + + + | Carol Ross | ECON | [address] | | | | | [place] | | | | | [address] | | + + + + + | Kaley King | ECON | [address] [facility] [address] | | | | | [place] [address] | | + + + + + Care Team Providers + +------+ + | Care Traffic Division Commanding Officer Name | Role | Phone | + [...] | Wound | | 2018 | | [facility] | DO [address] [place] | | | | | MEDICAL CLINIC [address] | [facility], [place] | | | | | [address]TH [facility], | [address] | | | | | [place] [address] | [phone] | | | | | [phone] | | | +--------+ + + + [...] | Visit | | DO [address] | | | | | | [place] | | | | | | [address] | | | | | | [phone] | | | | | | | | +--------+---------+ + + + as of this encounter Visit Diagnoses Not on filein this encounter"
--- OUTSIDE RECORDS SUMMARY | ~2018-02-21 | XMS | Encounter Summary ---
Demographics + + + | Address | [address] | | | [place] [address] | + + + | Home Phone | | + + + | Preferred Language | Unknown | + + + | Marital Status | | + + + | Jainism Affiliation | Unknown | + + + | Race | Unknown | + + + | Ethnic Group | Unknown | + + + Author + + + | Author | [facility] | | | and [place] | + + + | Organization | [facility] | | | and [place] | + + + | Address | Unknown | + + + | Phone | Unavailable | + + + Support + + + + + | Name | Relationship | Address | Phone | + + + + + | Carol Ross | ECON | [address] | | | | | [place] | | | | | [address] | | + + + + + | Kaley King | ECON | [address] [facility] [address] | | | | | [place] [address] | | + + + + + Care Team Providers + +------+ + | Care Qc Lab Technician Name | Role | Phone | + +------+ + | Edwin Clark DO | PCP | | + +------+ + Encounter Details +--------+ + + + + | Date | Type | Department | Care Team | Description | +--------+ + + + + | 01/28/ | Orders Only | [facility] | Edwin Clark, | | | 2017 | | [facility] | DO [address] [place] | | | | | MEDICAL CLINIC [address] | [facility], [place] | | | | | [address] [place], | [address] | | | | | [place] [address] | [phone] | | | | | [phone] | | | +--------+ + + + [...] | 2017 | Visit | | DO [address] [place] [address] | | | | | | [place] | | | | | | [address] | | | | | | [phone] | | | | | | | | +--------+---------+ + + + as of this encounter Visit Diagnoses Not on filein this encounter"
--- OUTSIDE RECORDS SUMMARY | ~2018-02-21 | XMS | Clinical Summary ---
Demographics + + + | Address | [address] [facility] | | | [place] [address] | + + + | Home Phone | | + + + | Preferred Language | Unknown | + + + | Marital Status | | + + + | Caodaism Affiliation | Unknown | + + + | Race | Unknown | + + + | Ethnic Group | Unknown | + + + Author + + + | Author | [facility] | | | and [place] | + + + | Organization | [facility] | | | and [place] | + + + | Address | Unknown | + + + | Phone | Unavailable | + + + Support + + + + + | Name | Relationship | Address | Phone | + + + + + | Carol Ross | ECON | [address] | | | | | [place] | | | | | [address] | | + + + + + | Kaley King | ECON | [address] [facility] | | | | | [place] [address] | | + + + + + Care Team Providers + +------+ + | Care Quality Control Systems Manager Name | Role | Phone | [...] | 11/28/2017 | + + + | supervisor metalizing current use of opiate analgesic | 09/05/2017 | + + + | Type 2 diabetes mellitus with hyperglycemia, without long-term | 09/05/2017 | | current use of insulin (HCC) | | + + + | Xcivdrq-Ujzte-Uymcx disease type 1 | 09/05/2017 | + [...] | + + + | Atherosclerosis of [place] coronary artery of [place] heart without | 09/05/2017 | | angina pectoris | | + + + | detention current use of antithrombotics/antiplatelets | 09/05/2017 | + + + | supervisor metalizing current use of aspirin | 09/05/2017 | [...] extremities; | | | | | | Mnisnkk-Mepye-Dpfli | | | | | | disease [...] | 2017 | Visit | | DO [facility] | | | | | | [place], [place] | | | | | | [address] | | | | | | [phone] | | | | | | | [...] | 1955 | [phone] | [place] [address] | | | pricila | | | [phone] | | + +--------+ +--------+ + +
--- OUTSIDE RECORDS SUMMARY | ~2018-02-21 | XMS | Encounter Summary ---
Demographics + + + | Address | [address] | | | [place] [address] | + + + | Home Phone | | + + + | Preferred Language | Unknown | + + + | Marital Status | | + + + | Jewish Affiliation | Unknown | + + + | Race | Unknown | + + + | Ethnic Group | Unknown | + + + Author + + + | Author | [facility] | | | and [place] | + + + | Organization | [facility] | | | and [place] | + + + | Address | Unknown | + + + | Phone | Unavailable | + + + Support + + + + + | Name | Relationship | Address | Phone | + + + + + | Carol Ross | ECON | [address] | | | | | [place] | | | | | [address] | | + + + + + | Kaley King | ECON | [address] [facility] [address] | | | | | [place] [address] | | + + + + + Care Team Providers + +------+ + | Care Wilton Weaver Name | Role | Phone | + [...] | | | | [address] [facility], | [address] | without long-term | | | | [place] [address] | [phone] | current use of | | | | [phone] | | insulin (HCC) | | | [...] [place] | | | | | | [address] | | | | | | [phone] | | | | | | | [...] of | | | | | insulin ([facility]) | | + +--------+ + + | [...]
--- OUTSIDE RECORDS SUMMARY | ~2018-02-21 | XMS | Encounter Summary ---
Demographics + + + | Address | [address] | | | [place] [address] | + + + | Home Phone | | + + + | Preferred Language | Unknown | + + + | Marital Status | | + + + | Hoahaoism Affiliation | Unknown | + + + | Race | Unknown | + + + | Ethnic Group | Unknown | + + + Author + + + | Author | [facility] | | | and [place] | + + + | Organization | [facility] | | | and [place] | + + + | Address | Unknown | + + + | Phone | Unavailable | + + + Support + + + + + | Name | Relationship | Address | Phone | + + + + + | Carol Ross | ECON | [address] | | | | | [place] | | | | | [address] | | + + + + + | Kaley King | ECON | [address] [facility] [address] | | | | | [place] [address] | | + + + + + Care Team Providers + +------+ + | Care Dry Cans Operator Name | Role | Phone | + +------+ + | Edwin Clark DO | PCP | | + +------+ + Encounter Details +--------+ + + + + | Date | Type | Department | Care Team | Description | +--------+ + + + + | 01/14/ | Orders Only | [facility] | Edwin Clark, | Type 2 diabetes | | 2018 | | [facility] | DO [address] [place] | mellitus with | | | | MEDICAL CLINIC [address] | [place], [place] | hyperglycemia, | | | | [address] [place], | [address] | without long-term | | | | [place] [address] | [phone] | current use of | | | | [phone] | | insulin (HCC) | +--------+ + [...] 2017 | Visit | | DO [address] [place] | | | | | | [place] | | | | | | [address] | | | | | | [phone] | | | | | | | | +--------+---------+ + + + as of this encounter Visit Diagnoses + + | Diagnosis | + + | Type 2 diabetes mellitus with hyperglycemia, without long-term current use of insulin | | (HCC) | + +"
--- OUTSIDE RECORDS SUMMARY | ~2018-02-21 | XMS | Encounter Summary ---
Demographics + + + | Address | [address] | | | [place] [address] | + + + | Home Phone | | + + + | Preferred Language | Unknown | + + + | Marital Status | | + + + | Samaritan Affiliation | Unknown | + + + | Race | Unknown | + + + | Ethnic Group | Unknown | + + + Author + + + | Author | [facility] | | | and [place] | + + + | Organization | [facility] | | | and [place] | + + + | Address | Unknown | + + + | Phone | Unavailable | + + + Support + + + + + | Name | Relationship | Address | Phone | + + + + + | Carol Ross | ECON | [address] | | | | | [place] | | | | | [address] | | + + + + + | Kaley King | ECON | [address] [facility] [address] | | | | | [place] [address] | | + + + + + Care Team Providers + +------+ + | Care Finishing Supervisor Name | Role | Phone | + [...] + + | Authorized | Specialty | Orthopedic | Diagnoses | Eduardo, | GOOD | | | Services | Surgery | Open wound | Edwin Mercer DO | [facility] | | | Required | | of right | [address] | MEDICAL [facility] | | | | | foot, | [place], | [address] | | | | | initial | [place] | [address] | | | | | encounter | [address] | [place] | | | | | | Phone: | [address] | | | | | | [phone] | Phone: | | | | | | Fax: | [phone] | | | | | | [phone] | Fax: | | | | | | | [phone] | + + + + + + + Reason for Visit +--------+ + | Reason | Comments | +--------+ + | Wound | accelerated wound | +--------+ + Encounter Details +--------+ + + + + | Date | Type | Department | Care Team | Description | +--------+ + + + + | 02/07/ | Telephone | [facility] | Edwin Clark, | Wound (accelerated | | 2018 | | [facility] | [address] [place] | wound) | | | | MEDICAL CLINIC [address] | [facility], [place] | | | | | 4TH [facility], | [address] | | | | | [place] [address] | [phone] | | | | | [phone] | | | +--------+ + + + [...] | 2017 | Visit | | DO [place] | | | | | | [place] | | | | | | [address] | | | | | | [phone] | | | | | | | | +--------+---------+ + + + + +--------+ + + | Name | Priori | Associated Diagnoses | Order Schedule | | | ty | | | + +--------+ + + | Orthopedic Surgery, External - | Routin | Open wound of | Ordered: 02/07/2018 | | AMB Referral | e | right foot, initial | | | | | encounter | | + +--------+ + + as of this encounter Visit Diagnoses + + | Diagnosis | + + | Open wound of right foot, initial encounter | + +"
--- OUTSIDE RECORDS SUMMARY | ~2018-02-21 | XMS | Encounter Summary ---
Demographics + + + | Address | [address] | | | [place] [address] | + + + | Home Phone | | + + + | Preferred Language | Unknown | + + + | Marital Status | | + + + | Christian Affiliation | Unknown | + + + | Race | Unknown | + + + | Ethnic Group | Unknown | + + + Author + + + | Author | [facility] | | | and [place] | + + + | Organization | [facility] | | | and [place] | + + + | Address | Unknown | + + + | Phone | Unavailable | + + + Support + + + + + | Name | Relationship | Address | Phone | + + + + + | Carol Ross | ECON | [address] | | | | | [place] | | | | | [address] | | + + + + + | Kaley King | ECON | [address] [facility] [address] | | | | | [place] [address] | | + + + + + Care Team Providers + +------+ + | Care Grid Caster Name | Role | Phone | + [...] | | | | [address] [facility], | [address] | without long-term | | | | [place] [address] | [phone] | current use of | | | | [phone] | | insulin (HCC) | | | [...] Visit | | DO [address] | | | | | | [place], [place] | | | | | | [address] | | | | | | [phone] | | | | | | | | +--------+---------+ + + + as of this encounter Visit Diagnoses + + | Diagnosis | + + | Type 2 diabetes mellitus with hyperglycemia, without long-term current use of insulin | | (HCC) - Primary | + +"
--- OUTSIDE RECORDS SUMMARY | ~2018-02-21 | XMS | Encounter Summary ---
Demographics + + + | Address | [address] | | | [place] [address] | + + + | Home Phone | | + + + | Preferred Language | Unknown | + + + | Marital Status | | + + + | Jehovah'S Witness Affiliation | Unknown | + + + | Race | Unknown | + + + | Ethnic Group | Unknown | + + + Author + + + | Author | [facility] | | | and [place] | + + + | Organization | [facility] | | | and [place] | + + + | Address | Unknown | + + + | Phone | Unavailable | + + + Support + + + + + | Name | Relationship | Address | Phone | + + + + + | Carol Ross | ECON | [address] | | | | | [place] | | | | | [address] | | + + + + + | Kaley King | ECON | [address] [facility] [address] | | | | | [place] [address] | | + + + + + Care Team Providers + +------+ + | Care Injection Wax Molder Name | Role | Phone | + [...] Foot Ulcer | | 2018 | | [facility] | [address] [place] [address] | | | | | MEDICAL CLINIC [address] | [place], [place] | | | | | 4TH [facility], | [address] | | | | | [place] [address] | [phone] | | | | | [phone] | | | +--------+ + + + [...] | 2017 | Visit | | DO [facility] | | | | | | [place] | | | | | | [address] | | | | | | [phone] | | | | | | | | +--------+---------+ + + + as of this encounter Visit Diagnoses Not on filein this encounter"
--- OUTSIDE RECORDS SUMMARY | ~2018-02-21 | XMS | Encounter Summary ---
Demographics + + + | Address | [address] | | | [place] [address] | + + + | Home Phone | | + + + | Preferred Language | Unknown | + + + | Marital Status | | + + + | Yarsanism Affiliation | Unknown | + + + | Race | Unknown | + + + | Ethnic Group | Unknown | + + + Author + + + | Author | [facility] | | | and [place] | + + + | Organization | [facility] | | | and [place] | + + + | Address | Unknown | + + + | Phone | Unavailable | + + + Support + + + + + | Name | Relationship | Address | Phone | + + + + + | Carol Ross | ECON | [address] | | | | | [place] | | | | | [address] | | + + + + + | aKley King | ECON | [address] [facility] [address] | | | | | [place] [address] | | + + + + + Care Team Providers + +------+ + | Care Cut Off Saw Operator Pipe Blanks Name | Role | Phone | + +------+ + | Edwin Clark DO | PCP | | + +------+ + Reason for Visit + + + | Reason | Comments | + + + | Diabetes | Prescription for test strips | + + + Encounter Details +--------+ + + + + | Date | Type | Department | Care Team | Description | +--------+ + + + + | 01/14/ | Telephone | [facility] | Valerie Joshi, | Diabetes | | 2018 | | [facility] | RN | (Prescription for | | | | MEDICAL CLINIC [address] | | test strips) | | | | 4TH [facility], | | | | | | [place] [address] | | | | | | [phone] | | | +--------+ + + + [...] | 2017 | Visit | | DO [address] [place] [address] | | | | | | [place] | | | | | | [address] | | | | | | [phone] | | | | | | | | +--------+---------+ + + + as of this encounter Visit Diagnoses Not on filein this encounter"
--- OUTSIDE RECORDS SUMMARY | ~2018-02-21 | XMS | Encounter Summary ---
Demographics + + + | Address | [address] | | | [place] [address] | + + + | Home Phone | | + + + | Preferred Language | Unknown | + + + | Marital Status | | + + + | Orthodox Affiliation | Unknown | + + + | Race | Unknown | + + + | Ethnic Group | Unknown | + + + Author + + + | Author | [facility] | | | and [place] | + + + | Organization | [facility] | | | and [place] | + + + | Address | Unknown | + + + | Phone | Unavailable | + + + Support + + + + + | Name | Relationship | Address | Phone | + + + + + | Carol Ross | ECON | [address] | | | | | [place] | | | | | [address] | | + + + + + | Kaley King | ECON | [address] [facility] [address] | | | | | [place] [address] | | + + + + + Care Team Providers + +------+ + | Care Quarter Seamer Name | Role | Phone | + [...] | | | | | encounter | [address] | [place] | | | | | | Phone: | [address] | | | | | | [phone] | Phone: | | | | | | Fax: | [phone] | | | | | | [phone] | Fax: | | | | | | | [phone] | + + + + + + [...] Wound (accelerated | | 2018 | | [facility] | [address] [place] | wound) | | | | MEDICAL CLINIC [address] | [facility], [place] | | | | | [address]TH [place], | [address] | | | | | [place] [address] | [phone] | | | | | [phone] | | | +--------+ + + + [...] [place] | | | | | | [address] | | | | | | [phone] | | | | | | | [...]
--- OUTSIDE RECORDS SUMMARY | ~2018-02-21 | XMS | Encounter Summary ---
Demographics + + + | Address | [address] | | | [place] [address] | + + + | Home Phone | | + + + | Preferred Language | Unknown | + + + | Marital Status | | + + + | Sikhism Affiliation | Unknown | + + + | Race | Unknown | + + + | Ethnic Group | Unknown | + + + Author + + + | Author | [facility] | | | and [place] | + + + | Organization | [facility] | | | and [place] | + + + | Address | Unknown | + + + | Phone | Unavailable | + + + Support + + + + + | Name | Relationship | Address | Phone | + + + + + | Carol Ross | ECON | [address] | | | | | [place] | | | | | [address] | | + + + + + | Kaley King | ECON | [address] [facility] [address] | | | | | [place] [address] | | + + + + + Care Team Providers + +------+ + | Care Yield Analyst Name | Role | Phone | [...] | | [address] [place], | [address] | | | | | [place] [address] | [phone] | | | | | [phone] | | | +--------+ + + + [...] | 2017 | Visit | | DO [address] [place] [address] | | | | | | [place] | | | | | | [address] | | | | | | [phone] | | | | | | | | +--------+---------+ + + + as of this encounter Visit Diagnoses Not on filein this encounter"
--- OUTSIDE RECORDS SUMMARY | ~2018-02-21 | XMS | Encounter Summary ---
Demographics + + + | Address | [address] | | | [place] [address] | + + + | Home Phone | | + + + | Preferred Language | Unknown | + + + | Marital Status | | + + + | Catholic Affiliation | Unknown | + + + | Race | Unknown | + + + | Ethnic Group | Unknown | + + + Author + + + | Author | [facility] | | | and [place] | + + + | Organization | [facility] | | | and [place] | + + + | Address | Unknown | + + + | Phone | Unavailable | + + + Support + + + + + | Name | Relationship | Address | Phone | + + + + + | Carol Ross | ECON | [address] | | | | | [place] | | | | | [address] | | + + + + + | Kaley King | ECON | [address] [facility] [address] | | | | | [place] [address] | | + + + + + Care Team Providers + +------+ + | Care Chief Of Police Name | Role | Phone | + [...] | | | | | [address] [place], | [address] | | | | | [place] [address] | [phone] | | | | | [phone] | | | +--------+ + + + [...] 2017 | Visit | | DO [address] [place] [address] | | | | | | [place] | | | | | | [address] | | | | | | [phone] | | | | | | | | +--------+---------+ + + + as of this encounter Visit Diagnoses Not on filein this encounter"
--- OUTSIDE RECORDS SUMMARY | ~2018-02-21 | XMS | Encounter Summary ---
Demographics + + + | Address | [address] | | | [place] [address] | + + + | Home Phone | | + + + | Preferred Language | Unknown | + + + | Marital Status | | + + + | Denominational Affiliation | Unknown | + + + | Race | Unknown | + + + | Ethnic Group | Unknown | + + + Author + + + | Author | [facility] | | | and [place] | + + + | Organization | [facility] | | | and [place] | + + + | Address | Unknown | + + + | Phone | Unavailable | + + + Support + + + + + | Name | Relationship | Address | Phone | + + + + + | Carol Ross | ECON | [address] | | | | | [place] | | | | | [address] | | + + + + + | Kaley King | ECON | [address] [facility] [address] | | | | | [place] [address] | | + + + + + Care Team Providers + +------+ + | Care Spray Stainer Name | Role | Phone | + [...] diabetes | | 2018 | | [facility] | DO [address] | mellitus with | | | | MEDICAL CLINIC [address] | [place], [place] | hyperglycemia, | | | | [address] [place], | [address] | without long-term | | | | [place] [address] | [phone] | current use of | | | | [phone] | | insulin (HCC) | +--------+ + [...] 2017 | Visit | | DO [address] | | | | | | [place] | | | | | | [address] | | | | | | [phone] | | | | | | | | +--------+---------+ + + + as of this encounter Visit Diagnoses + + | Diagnosis | + + | Type 2 diabetes mellitus with hyperglycemia, without long-term current use of insulin | | (HCC) | + +"
--- OUTSIDE RECORDS SUMMARY | ~2018-02-21 | XMS | Encounter Summary ---
Demographics + + + | Address | [address] | | | [place] [address] | + + + | Home Phone [...] | Author | [facility] | | | and [place] | + + + | Organization | [facility] | | | and [place] | + + + | Address | Unknown | + + + | Phone | Unavailable | + + + Support + + + + + | Name | Relationship | Address | Phone | + + + + + | Carol Ross | ECON | [address] | | | | | [place] | | | | | [address] | | + + + + + | Kaley King | ECON | [address] [facility] [address] | | | | | [place] [address] | | + + + + + Care Team Providers + +------+ + | Care Quantitative Developer Name | Role | Phone | + [...] Home Health | | 2018 | | [facility] | [address] [place] [address] | | | | | MEDICAL CLINIC 506 | [place], [place] | | | | | 4TH [facility], | [address] | | | | | [place] [address] | [phone] | | | | | [phone] | | | +--------+ + + + [...] | 2017 | Visit | | DO [place] | | | | | | [place] | | | | | | [address] | | | | | | [phone] | | | | | | | | +--------+---------+ + + + as of this encounter Visit Diagnoses + + | Diagnosis | + + | Venous stasis dermatitis of both lower extremities - Primary | + +"
--- OUTSIDE RECORDS SUMMARY | ~2018-02-21 | XMS | Encounter Summary ---
Demographics + + + | Address | [address] | | | [place] [address] | + + + | Home Phone [...] | [facility] | | | and [place] | + + + | Organization | [facility] | | | and [place] | + + + | Address | Unknown | + + + | Phone | Unavailable | + + + Support + + + + + | Name | Relationship | Address | Phone | + + + + + | Carol Ross | ECON | [address] | | | | | [place] | | | | | [address] | | + + + + + | Kaley King | ECON | [address] [facility] [address] | | | | | [place] [address] | | + + + + + Care Team Providers + +------+ + | Care Scaffold Erector Name | Role | Phone | + [...] test strips) | | | | 4TH [facility], | | | | | | [place] [address] | | | | | | [phone] | | | +--------+ + + + [...] | 2017 | Visit | | DO [address] [place] [address] | | | | | | [place] | | | | | | [address] | | | | | | [phone] | | | | | | | | +--------+---------+ + + + as of this encounter Visit Diagnoses Not on filein this encounter"
--- OUTSIDE RECORDS SUMMARY | ~2018-02-21 | XMS | Encounter Summary ---
Demographics + + + | Address | [address] | | | [place] [address] | + + + | Home Phone | | + + + | Preferred Language | Unknown | + + + | Marital Status | | + + + | Jain Affiliation | Unknown | + + + | Race | Unknown | + + + | Ethnic Group | Unknown | + + + Author + + + | Author | [facility] | | | and [place] | + + + | Organization | [facility] | | | and [place] | + + + | Address | Unknown | + + + | Phone | Unavailable | + + + Support + + + + + | Name | Relationship | Address | Phone | + + + + + | Carol Ross | ECON | [address] | | | | | [place] | | | | | [address] | | + + + + + | Kaley King | ECON | [address] [facility] [address] | | | | | [place] [address] | | + + + + + Care Team Providers + +------+ + | Care Industrial Controls Technician Name | Role | Phone | [...] Gastroesophageal | | 2018 | Visit | [facility] | DO [address] | reflux disease | | | | [facility] | [place], [place] | without esophagitis | | | | [address] [place], | [address] | (Primary Dx); Venous | | | | [place] [address] | [phone] | stasis dermatitis | | | | [phone] | | of both lower | | | | | | extremities; | | | | | | Syksute-Pxhuz-Nagrg | | | | | | disease [...] daily. Dispense: 400 g; Refill: 5 3. Fcwxbnm-Sambo-Qhbwt disease type 1 Stable 4. Type 2 diabetes mellitus with hyperglycemia, without long-term current use of insulin (H CC) Abnormal diabetic foot exam 5. custodial current use of opiate analgesic Stable 6. [...] 60 mg by mouth Daily. Glucose Blood ([employer] BLOOD GLUCOSE TEST ) by In Vitro route. Use three times daily to test blood glucose Insulin Glargine (LANTUS SOLOSTAR SC) Inject 62 Units under the skin nightly. 5x3ml insulin lispro (HUMALOG KWIKPEN) 200 units/mL concentrated injection (pen) Inject 10 Un its under the skin 3 times daily (before meals). insulin pen needle ([employer] SHORT PEN NEEDLES) 31 gauge x 8 [...] | 2017 | Visit | | DO [facility] [address] | | | | | | [facility], [place] | | | | | | [address] | | | | | | [phone] | | | | | | | | +--------+---------+ + + + as of this encounter Visit Diagnoses + + | Diagnosis | + + | Gastroesophageal reflux disease without esophagitis - Primary | + + | Esophageal reflux | + + | Venous stasis dermatitis of both lower extremities | + + | Rxyytcd-Tjuvi-Ytwbg disease type 1 | + + | Type 2 diabetes mellitus with hyperglycemia, without long-term current use of insulin | | (HCC) | + + | custodial current use of opiate analgesic | + + | Encounter for long-term (current) use of other medications | + + | Living in assisted living | + +
[~2018-02-21 15:40] MED LIST: ATORVASTATIN CA20 MG PO; CLOPIDOGREL75 MG PO; DOXYCYCLINE HY100 MG PO; HUMALOG100 UNIT/2 SUB-Q; ISOSORBIDE MONO30 MG PO; LANTUS SOL100 UNIT/1 SUB-Q; LYRICA150 MG PO; METOPROLOL TART25 MG PO; PANTOPRAZOLE SO40 MG PO; PRISTIQ ER100 MG PO; ROPINIROLE HCL2 MG PO
[2018-02-21] MEDS ORDERED: CIPRO500 MG PO (17:15)
[2018-02-21] MEDS ORDERED: CLEOCIN HCL300 MG PO (17:15)
[2018-02-21] MEDS ORDERED: ADULT ASPIRIN81 MG PO (17:37)
[2018-02-21] MEDS ORDERED: BUSPIRONE HCL10 MG PO (17:38)
[2018-02-21] MEDS ORDERED: CLEOCIN T60 ML TOP (17:41)
[2018-02-21] MEDS ORDERED: CLOTRIMAZOLE AF15 G5 TOP (17:43)
[2018-02-21] MEDS ORDERED: CYMBALTA60 MG PO (17:43)
[2018-02-21] MEDS ORDERED: FLUCONAZOLE150 MG PO (17:45)
[2018-02-21] MEDS ORDERED: GLUCOPHAGE500 MG PO (17:46)
[2018-02-21] MEDS ORDERED: ISOSORBIDE DINI30 MG PO (17:46)
[2018-02-21] MEDS ORDERED: OMEPRAZOLE40 MG PO (17:47)
[2018-02-21] MEDS ORDERED: [UNRECOGNIZED DRUG - SUPPLY] TOP (17:48)
[2018-02-21] MEDS ORDERED: ACID CONTROL150 MG PO (17:49)
[2018-02-21] MEDS ORDERED: SILVADENE20 GM TOP (17:50)
[2018-02-21] MEDS ORDERED: LAMISIL250 MG PO (17:51)
[2018-02-21] MEDS ORDERED: TRIAMCINOLONE A80 GM TOP (17:53)
[2018-02-21] MEDS ORDERED: VITAMIN C500 M1 PO (17:56)
[2018-02-21] MEDS ORDERED: VITAMIN D31000 UNIT PO (17:57)
[2018-02-21] MEDS ORDERED: COMBIVENT RESPIM4 GM INH (17:59)
[2018-02-21] MEDS ORDERED: DOK100 MG PO (18:01)
[2018-02-21] MEDS ORDERED: MELATIN3 MG PO (18:02)
[2018-02-21] MEDS ORDERED: IPRAT-ALBUT 0.5-3 ML INH (18:02)
[2018-02-21] MEDS ORDERED: NARCAN4 MG NAS (18:04)
[2018-02-21] MEDS ORDERED: NITROSTAT0.4 MG SL (18:05)
[2018-02-21] MEDS ORDERED: ZUPLENZ4 MG PO (18:07)
[2018-02-21] MEDS ORDERED: OXYCODONE HCL15 MG PO (18:08)
[2018-02-21] MEDS ORDERED: TORSEMIDE5 MG PO (18:09)
== END 2018-02-21 19:11 | disposition home or self-care (01) ==
LOC: ED 15:40
DX: E11.621 Type 2 diabetes mellitus with foot ulcer (principal); L97.519 Non-pressure chronic ulcer of other part of right foot with unspecified severity; L03.115 Cellulitis of right lower limb; I10 Essential (primary) hypertension; K21.9 Gastro-esophageal reflux disease without esophagitis; E78.5 Hyperlipidemia, unspecified; F17.200 Nicotine dependence, unspecified, uncomplicated; Z88.0 Allergy status to penicillin; Z88.1 Allergy status to other antibiotic agents; Z88.8 Allergy status to other drugs, medicaments and biological substances; Z88.6 Allergy status to analgesic agent; Z88.5 Allergy status to narcotic agent; Z79.4 Long term (current) use of insulin; Z79.899 Other long term (current) drug therapy
CPT/HCPCS: 73630; 80053; 85025; 85610; 85651; 96365; 96367; 99283; J1956; J3370

== ENCOUNTER 2018-05-21 09:26 | Inpatient (IN) | payer MEDICARE, OTHER ==
[~2018-05-21] VITALS: Ht 188 cm; Wt 121.6 kg
[~2018-05-21 09:26] MED LIST changes: +ACID CONTROL150 MG PO; +ASPIR-LOW81 MG PO; +BUSPIRONE HCL10 MG PO; +CIPRO500 MG PO; +CLEOCIN HCL300 MG PO; +CLEOCIN T60 ML TOP; +CLOTRIMAZOLE AF TOP; +COMBIVENT RESPIM4 GM INH; +CYMBALTA60 MG PO; +DOK100 MG PO; +FLUCONAZOLE150 MG PO; +GLUCOPHAGE500 MG PO; +IPRAT-ALBUT 0.5-3 ML INH; +ISOSORBIDE DINI30 MG PO; +LAMISIL250 MG PO; +LYRICA100 MG PO; -LYRICA150 MG PO; +MELATIN3 MG PO; +NARCAN4 MG NAS; +NITROSTAT0.4 MG SL; +OMEPRAZOLE40 MG PO; +OXYCODONE HCL10 MG PO; +SILVADENE20 GM TOP; +TORSEMIDE5 MG PO; +TRIAMCINOLONE A15 G2 TOP; +VITAMIN C500 M1 PO; +VITAMIN D31000 UNIT PO; +ZOFRAN4 MG PO; +[UNRECOGNIZED DRUG - SUPPLY] TOP
--- NOTE | 2018-05-22 14:36 | NUR ---
PATIENT HERE TODAY FOR PREADMISSION APPOINTMENT. HE IS SCHEDULE FOR A BELOW THE KNEE AMPUTATION ON 05/27/18. HE HAS A MOTORIZED WHEELCHAIR AND IS CURRENTLY LIVING AT [facility]. HE STATES HE DOES NOT WALK AND IS ABLE TO TRANSFER HIMSELF. BOTH FEET ARE NOTED TO BE IN HEEL PROTECTORS WITH NON SLIP SOCKS ON. HE REPORTS GOING TO [place] FOR WOUND CARE ON HIS LEFT HEEL. HE STATES HE WILL NEED TRANSPORTATION SET UP WHEN HE IS DISCHARGED BACK TO [facility]. THIS INFORMATION WILL BE SENT TO DR ARIAS OFFICE AND [place] PLANNING FOR FURTHER FOLLOW UP.
[2018-05-22] MEDS ORDERED: CLEOCIN HCL300 MG PO (14:43)
[2018-05-22] MEDS ORDERED: CIPRO500 MG PO (14:43)
--- NOTE | 2018-05-27 11:20 | NUR ---
05/27/18 1120 Lauren Rob 1038- PT ARRIVES TO PACU VERY RESTLESS. ATTEMPTING TO MOVE SIDE TO SIDE. EDUCATED PT THAT SURGERY WAS OVER AND HE WAS IN RECOVERY. ASSISTED PT TO LEFT SIDE PER REQUEST. PT CONTINUES TO MOVE SIDE TO SIDE AND NEEDS FREQUENT REMINDERS. 1045- PT SCRATCHED HIS RIGHT THIGH CAUSING 4 SCRATCH YA WITH SOME BLEEDING. 1150- PT REMAINS RESTLESS AND TANGLING UP HIS MONITOR. PRODUCT DESIGNER TAKEN OFF TO ATTEMPT TO CALM PT. 1052- PT'S OXYGEN TURNED OFF. OXYGEN SAT MID TO HIGH 90'S ON RA. 1059- BLOOD SUGAR 187 TAKEN BY JUAN LYNN. 1110- PT RESTING WITH EYES CLOSED IN BED.
--- NOTE | 2018-05-27 11:54 | NUR ---
PATIENT TO FLOOR FROM RECOVERY, PATIENT RATES PAIN 7/10 ON PAIN SCALE. STUMP ELEVATED ON PILLOW, NO BLOOD ON BAL WRAP. ICE BAG APPLIED. SCD ON AND HEEL PROTECTOR ON LEFT LEG. FULL BODY ASSESMENT DONE. VS STABLE.
--- NOTE | 2018-05-27 12:15 | NUR ---
IV FLUIDS INFUSING. ADMINISTERED 1 TAB OXYCODONE FOR PAIN 8/10 ON PAIN SCALE. CB 156, PROVIDED PATIENT WITH SUGAR FREE JELLO AND ICE WATER. PATIENT PLAYING GAMES ON PHONE, NO OTHER NEEDS AT THIS TIME. CALL LIGHT WITHIN REACH.
--- NOTE | 2018-05-27 14:04 | NUR ---
ADMINISTERED SECOND OXYCODONE, PATIENT ABLE TO HAVE 5-10 MG Q4HRS AND PATIENT STATES PAIN IS NOT IMPROVING MUCH. DISCUSSED PATIENT IMPORTANCE OF HAVING STUMP ELEVATED ON PILLOWS. REPOSITIONED PILLOWS UNDER STUMP, BAL WRAP C/D/I. PATIENT ATE 100% OF LUNCH, HAS VOIDED 150 OF URINE. ENCOURAGED PATIENT TO DRINK MORE, PROVIDED MORE ICE WATER. CALL LIGHT WITHIN REACH, NO OTHER NEEDS AT THIS TIME.
[2018-05-27] MEDS ORDERED: EUCERIN INTENS250 ML TOP (16:06)
[2018-05-27] MEDS ORDERED: FLONASE ALLERG9.9 ML NAS (16:07)
[2018-05-27] MEDS ORDERED: NARCAN4 MG NAS (16:17)
[2018-05-27] MEDS ORDERED: [UNRECOGNIZED DRUG - OTHER] TOP (16:19)
[2018-05-27] MEDS ORDERED: ROPINIROLE HCL2 MG PO (16:29)
[2018-05-27] MEDS ORDERED: GLUCAGEN1 M1 IM (16:35)
[2018-05-27] MEDS ORDERED: GLUCOSE4 GM PO (16:36)
[2018-05-27] MEDS ORDERED: NORCO 5-325 TA1 EACH PO (16:37)
[2018-05-27] MEDS ORDERED: NICORELIEF2 MG BUCCAL (16:38)
[2018-05-27] MEDS ORDERED: BACLOFEN10 MG PO (16:38)
[2018-05-27] MEDS ORDERED: NITROSTAT0.4 MG SL (16:42)
--- NOTE | 2018-05-27 16:48 | NUR ---
MED REC COMPLETE
--- NOTE | 2018-05-27 17:23 | NUR ---
SPOKE WITH PATIENT IN ROOM. PATIENT COMPLAINTS OF ROOM BEING HOT. FAN PLACED IN ROOM FOR COMFORT. STAFF AWARE. PATIENT LIVES AT [facility] HAS A MOTORIZED CHAIR IN ROOM. PATIENT IS CHAIR BOUND NORMALLY. PATIENT STATES HE DOESN'T THINK HE HAS TO DO ANY PHYSICAL THERAPY AFTER SURGERY. STATES HE WILL RETURN TO ASSISTED LIVING. DISCUSSED THAT USUALLY THEY REQUIRE PATIENT TO BE BASELINE BEFORE RETURN AND REHAB MAY BE NEEDED. PATIENT STATES "I DON'T THINK SO". PATIENT VERY SHORT WITH ANSWERS AND SEEMS AGGITATED. CASE MANAGMENT WILL FOLLOW WITH HIM AND SEE HIM TOMORROW TO CONTINUE CONVERSATION.
--- NOTE | 2018-05-27 19:03 | NUR ---
VS AND I&O'S TAKEN AND DOCUMENTED. PT REQUESTED WATER. FRESH ICE WATER GIVEN. PT HAS NO OTHER NEEDS AT THIS TIME. PT IS AWARE TO CALL IF HE NEEDS ANYTHING. CALL LIGHT IS IN REACH.
--- NOTE | 2018-05-27 19:43 | NUR ---
IN ROOM FOR REPORT, PT IS AWAKE IN BED. HE DENIES NEEDS AT THIS TIME. HE ALSO RATES PAIN AT 7, WILL CALL DR JUANA BOSTON BECAUSE DAYSHIFT RN REPORTS PT RATED PAIN HIGH ALL AFTERNOON.
--- NOTE | 2018-05-27 20:23 | NUR ---
PT RESTING IN BED, RIGHT LEG REPOSITIONED FOR COMFORT, ICE APPLIED.
--- NOTE | 2018-05-27 20:28 | NUR ---
SPOKE WITH DR ARIAS ABOUT PT'S PAIN RATING HIGH THROUGHOUT THE DAY. NEW ORDERS RECEIVED AND HE RECOMMENDED CALLING CALLING CONSTRUCTION SECRETARY TO SEE ABOUT A BLOCK. SPOKE WITH BREE CHAUDHARY AND SHE SAID SHE WILL COME IN AND ASSESS HIM.
--- NOTE | 2018-05-27 23:32 | NUR ---
PT IS RESTING WITH EYES CLOSED, RESPIRATIONS ARE EVEN AND NONLABORED. CALL LIGHT IS WITHIN REACH.
--- NOTE | 2018-05-28 01:11 | NUR ---
IN ROOM TO ADMINISTER PAIN MEDICATION. PT RATES PAIN AT 8/10 AT THIS TIME. HE DENIES FURTHER NEEDS.
--- NOTE | 2018-05-28 03:10 | NUR ---
PT IS RESTING WITH EYES CLOSED, RESPIRATIONS ARE EVEN AND NONLABORED. CALL LIGHT IS WITHIN REACH.
--- NOTE | 2018-05-28 05:45 | NUR ---
WOKE PT TO GIVE MEDICATIONS. FRESH ICE IS ON RT KNEE AND HE HAS FRESH ICEWATER AT THE BEDSIDE. PT WOULD LIKE TO SLEEP AND DOES NOT WANT TO BE DISTURBED FOR REPORT. HE DENIES FURTHER NEEDS.
--- NOTE | 2018-05-28 07:15 | NUR ---
REPORT RECIEVED FROM JUAN HIRSCH. PT ASLEEP AND ASKED TO NOT BE DISTURBED. 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 PT WOULD LIKE TO GO BACK TO [place] AND HAS BEEN UPSET ABOUT STAYING.
--- NOTE | 2018-05-28 07:54 | OR ---
[facility] [address], [place] [address] Signed DATE OF OPERATION: 05/27/2018 SURGEON: Beth Alberts MD PREOPERATIVE DIAGNOSIS: Gangrene osteomyelitis, right foot. POSTOPERATIVE DIAGNOSIS: Gangrene osteomyelitis, right foot. PROCEDURE PERFORMED: Right below-knee amputation. ELECTRICAL CONTROLS ASSEMBLER: LILLIE Carranza and MARLENY Vasquez. Alexandra was present for the entire procedure, was critical position under wound retraction and wound closure. ANESTHESIA: General. BLOOD LOSS: 300 mL. SPECIMENS: The distal extremity was sent to pathology. BRIEF HISTORY: Rodríguez is a 62-year-old gentleman with a history of Charcot Blanca Tooth, peripheral vascular disease, smoking, and diabetes. He had developed multiple ulcers on the right foot with long-time arm wound care. However, the preoperative study showed osteomyelitis in the foot and wound really was not progressing despite aggressive wound care. Because of the risk of systemic illness and sudden , I spoke to him about a below-knee amputation. Vascular consult, which cleared him with good blood flow. Risks, benefits, and alternatives were discussed at length with him and he elected to proceed. DESCRIPTION OF PROCEDURE: Once consent was obtained, he was taken to the operating room. After adequate anesthesia, he was placed on operating table. All downside pressure points well padded. A well-padded proximal thigh tourniquet was placed on the right leg and the leg was Electronically Signed By: BETH ALBERTS MD 05/28/18 0754 PATIENT NAME: RODRÍGUEZ CHI OPERATIVE REPORT DATE OF : 59 REPORT #: [id number] PHYSICIAN: BETH ALBERTS MD PCP: ELLIOTT POWELL DO REPORT IS CONFIDENTIAL AND NOT TO BE RELEASED WITHOUT AUTHORIZATION [facility] [address], [place] [address] Signed prepped and draped in standard sterile fashion. We did place the foot in [place] back prior to prepping. The skin incision was then mapped 1 with a handbreadth below the tibial tubercle curving posteriorly to create a posterior flap. This was then incised circumferentially, carried through skin and subcutaneous tissue. Bleeders were cauterized as we went. We then into the muscle compartments and the fascia was split longitudinally. Again bleeders were either cauterized or clamped as we went. Circumferential dissection around the tibia and fibula was obtained. The fibula was then transected followed by the tibia. This was done 2 cm proximal to the skin incision. The soft tissue dissection was then carefully taken posteriorly. Bleeders again clamped as we went. The nerve was clamped as well. The amputation was completed and the foot was passed off the table. The remaining bleeders on the BKA stump were then tied using a variety of stick in hand 0 silk ties. The stump was relatively blood free by the time we finished. We did debride a little bit of muscle to allow the skin flap to full anteriorly. Once this was accomplished, we then closed the fascia using #1 Vicryl after irrigating the wound. The subcutaneous tissue was closed with 2-0 Monocryl. The skin with 2-0 nylon. The wound was closed quite nicely with no significant tension on the wound margins. The wound was then dressed with Mepilex Ag dressing, fluffs, Kerlix, and an Arnulfo wrap. He tolerated the procedure well. All sponge, needle, and instrument counts were correct. Beth Alberts MD BA/RUTH /[id number] Copies: ~ Electronically Signed By: BETH ALBERTS MD 05/28/18 0754 PATIENT NAME: RODRÍGUEZ CHI OPERATIVE REPORT DATE OF : 59 REPORT #: [id number] PHYSICIAN: BETH ALBERTS MD PCP: ELLIOTT POWELL DO REPORT IS CONFIDENTIAL AND NOT TO BE RELEASED WITHOUT AUTHORIZATION
--- NOTE | 2018-05-28 08:40 | NUR ---
PT ASLEEP UNTIL AWOKE FOR MORNING MEDS AND ASSESSMENT. DRESSING CDI. PT ANSWERS QUESTIONS WITH YES\NO ANSWERS OR THE MINIMUM WORDS BUT IS COOPERATIVE. RATES PAIN 8/10. STATES HE HAS BEEN HAVING MUSCLE SPASMS IN THE HAMSTRING. HR REG. LUNGS CLEAR. VS STABLE. IVF INFUSING WNL.
--- NOTE | 2018-05-28 10:08 | NUR ---
PT REFUSED BREAKFAST AND IS NOW REFUSING LUNCH HE CANNOT HAVE FRIES AND THAT IS WHAT HE WANTS. ENCOURAGED TO ORDER SOMETHING WITHIN HIS DIET RANGE AND HE REFUSED.
--- NOTE | 2018-05-28 10:14 | NUR ---
CALLED DR ARIAS REGARDING PT REFUSING SCD'S AND POSSIBLE OTHER PROFAL. STATED JUST TO DOCUMENT HIS REFUSAL.
--- NOTE | 2018-05-28 10:54 | NUR ---
HELPED PT TRANSFER TO AUTOMATIC CHAIR AND THEN TO TOILET.
--- NOTE | 2018-05-28 11:40 | NUR ---
PT NOT WANTING TO SHOWER AT THIS TIME. WILL GO IN LATER TO TALK WITH PT AGAIN. PT RESTING IN BED. CALL LIGHT WITHIN REACH.
--- NOTE | 2018-05-28 12:20 | NUR ---
PT ATE LUNCH. PT DECLINGING BEDBATH. SAID HE DOES NOT WANT TO DO ONE TODAY.
--- NOTE | 2018-05-28 12:32 | NUR ---
CALLED AND SPOKE WITH GERRI AT [facility], AND EXPLAINED WHAT DR ARIAS HAD EXPLAINED TO ME ABOUT THE PT ABILITY TO RETURN TO HER FACILITY TOMORROW, SHE HAD PREVIOUSLY STATED THAT SHE WOULD LIKE HIM TO GO TO REHAB FOR WOUND CARE AND PT BEFORE HE RETURNED TO THEM. DR ARIAS SAID THERE IS NO NEED FOR WOUND CARE EXCEPT BY AND THAT THE PT WOULD NOT BE NEEDING PT, HE WOULD BE ABLE TO TRANSFER TO CHAIR ETC SAME, JUST WITHOUT 20 LBS. SHE REQUESTED CHART NOTES, AND STATED SHE WILL BE IN TODAY TO SEE HIM. FAXED CHART NOTES INCLUDING FACESHEET, H AND P, PROG NOTES, PT NOTES TO [facility]. RECIEVED FAX CONFIRMATION.
--- NOTE | 2018-05-28 14:14 | NUR ---
VS DONE. PT ASLEEP IN BED.
--- NOTE | 2018-05-28 16:30 | NUR ---
PT ASKED TO GO OUTSIDE AND SMOKE WHILE HE WAS WITH PHYS. THER. EXPLAINED THAT IT IS AGAINST HOSPITAL POLICY AND HE HAS TO STAY ON OUR FLOOR. TOLD HIM I COULD CALL JUANA AND ASK FOR ANTOINETTE PATCH, LOZENGE OR GUM. HE STATED THAT DOESN;T WORK AND IS GOING TO GO OUTSIDE. SAID AMANDA, BUT YOU CAN HAVE A SNACK. PT DECIDED TO GO TO BED AND AWAIT FOR DINNER.
--- NOTE | 2018-05-28 17:07 | NUR ---
СЕРГЕЙ FROM [facility] WAS HERE WITNESSED PART OF THE PT PT SESSION AND STATED THAT SHE CANNOT TAKE PT BACK UNTIL AFTER HE HAS HAD SOME GOOD REHAB AND IS ABLE TO TRANSFER SAFELY FROM ONE TO THE NEXT. SHE TOLD THE PT THIS.
--- NOTE | 2018-05-28 19:07 | NUR ---
pt resting in bed, eyes closed and respirations even and unlabored. call light in reach. pt alert to voice, requested and received diet soda. DSG to right leg surgical site cdi, leg elevated and ice apoplied. assessment completed and pt denies having any further concerns or requests.
--- NOTE | 2018-05-28 21:05 | NUR ---
PT RESTING IN BED WATCHING TV, DSG CDI TO R LE SURGICAL SITE. ICE APPLIED TO SURGICAL SITE. HEEL POTECTER IN PLACE TO LEFT LE. PT REQUESTED AND RECEIVED DIET COLA. PT DENIES NAUSEA OR SOB AND STATES HE FEELS COMFORTABLE. CALL LIGHT IN REACH AND PT DENIES HAVING ANY FURTHER CONCERNS OR REQUESTS. .
--- NOTE | 2018-05-28 22:45 | NUR ---
PT RESTING SUPINE IN BED WATCHING TV, CALL LIGHT IN REACH. FRESH ICE APPLIED TO RIGHT LEG SURGICAL SITE, DSG CDI. PT REPORTS INCREASED PAIN TO RLE SO PRN PO PAIN MEDICATIONS ADMINISTERED ORDERED. PT GIVEN FRESH ICE WATER. NO FURTHER CONCERNS OR REQUESTS VOICED.
--- NOTE | 2018-05-29 00:25 | NUR ---
PT RESTING SUPINE IN BED, RR18. EYES CLOSED AND PT APPEARS TO BE SLEEPING COMFOTABLY. PT REPOSITIONED IN BED. STUMP REMAINS ELEVATED ON PILLOW. ICE APPLIED TO RLE SURGICAL SITE. DSG IS CDI. CALL LIGHT AND ICE WATER IN REACH.
--- NOTE | 2018-05-29 01:30 | NUR ---
PT RESTING IN BED, EYES CLOSED AND RR 16. PT APPEARS TO BE SLEEPING COMFORTABLY. PT ALET TO VOICE AND STATES HE IS COMFOTABLE AND DENIES REQUESTS/CONCERNS. PT REPOSITIONED IN BED AND STUMP REMAINS ELEVATED ON PILLOW WITH ICE APPLIED. HEEL PROTECTOR IN PLACE TO LEFT FOOT. CALL LIGHT AND WATER IN REACH.
--- NOTE | 2018-05-29 02:45 | NUR ---
PT RESTING IN BED, EYES CLOSED AND RR 18. PT ASSISTED IN REPOSITIONING AND RIGHT STUMP ELEVATED ON PILLOW WITH ICE PACK APPLIED. DSG CDI AND PT STATES HE IS COMFORTABLE AND DENIES NEEDS AT THIS TIME. CALL LIGHT AND H2O IN REACH.
--- NOTE | 2018-05-29 04:25 | NUR ---
pt resting in bed, respirations 16. pt alert to voice. tape holding IV dsg was coming off so iv resecured with tape. Dsg cdi to right LE with ice applied. call light in reach and pt states he is comfortable. pt continues to refuse scd.
--- NOTE | 2018-05-29 06:40 | NUR ---
PT RESTING IN BED, ASSISTED WITH REPOSITIONING AND RIGHT STUMP ELEVATED ON PILLOW. PT REPORTS PAIN LEVEL OF 6-7/10, TYLENOL PO 100MG ADMINISTERED. CALL LIGHT AND H20 IN REACH. NO FURTHER CONCERNS OR REQUESTS VOICED. SCD AND HEEL PROTECTOR IN PLACE TO LEFT LE.
--- NOTE | 2018-05-29 07:43 | NUR ---
PT HAD A GOOD NIGHT AND APPEARED TO SLEEP WELL IN BETWEEN ASSESSMENTS/INTERVENTIONS. PT TOLORATED ICE TO RIGHT SURGICAL STUMP FOR 20 MINS ON EVERY 1-2 HOURS ALONG WITH REPOSITIONING. DSG TO RIGHT LE REMAINS CDI. PAIN HAS BEEN CONTROLLED WITH PO OXYCODONE AND SCHEDULED PO TYLENOL. PT ABLE TO REPOSITION HIMSELF IN BED WITH 1-2 PERSON ASSIST AND ALSO TRANSFERS TO WITH 1-2 PERSON ASSIST. PT VOIDS QS CLEAR YELLOW URINE. PT DENIES SOB AND MAINTAINS ROOM AIR SATS IN MID 90'S.
--- NOTE | 2018-05-29 08:10 | NUR ---
PATIENT RESTING IN BED, EYES CLOSED. THIS BUNDLE SHAKER SET UP AM CARE FOR PATIENT IN BATHROOM. NO OTHER NEEDS AT THIS TIME.
--- NOTE | 2018-05-29 09:00 | NUR ---
PT SLEEPING BUT EASILY ROUSABLE. PT UNINTERESTED IN BREAKFAST THIS AM, ENCOURAGED FOOD. NO DISTRESS. PT DENIES SOB/NAUSEA. PT CAN MOVE IN BED WITH ASSIST. WILL CONTINUE TO MONITOR.
--- NOTE | 2018-05-29 10:23 | NUR ---
PATIENT STATES HE HAS NOT VOIDED YET TODAY AND THAT HE DOES NOT NEED TO AND REFUSES TO TRY. RN NOTIFIED.
--- NOTE | 2018-05-29 10:34 | NUR ---
PATIENT REFUSING A SHOWER TODAY. PATIENT HAD NO OUTPUT THIS AM, THIS FOLLOW UP CLERK ENCOURAGED PATIENT TO TRY TO VOID. PATIENT DECLINED, STATING THAT HE WOULD GO WHEN HE WAS READY. RN NOTIFIED. PATIENT GIVEN DIET COKE TO HELP ENCOURAGE VOIDING. PATIENT CALL LIGHT IN REACH. NO OTHER NEEDS AT THIS TIME.
--- NOTE | 2018-05-29 11:24 | NUR ---
PT FELT HE WAS NOT GETTING HIS RESTLESS LEG MEDS NEEDED. EXPLAINED THAT HE WAS ONT HE SAME SCHEDULE YESTERDAY AND ADMINISTERED NOON DOSE OF REQUIP.
--- NOTE | 2018-05-29 12:35 | NUR ---
PT HAD LUNCH AND REFUSED INSULIN DUE TO INITIAT READ OF 124. PT ATE ALL OF LUNCH. PT REQUESTED POST PT SESSION TO WEAR PYJAMAS, FOR EASE IN TRANSFER. ASSISTED PT WITH PHYSICAL THERAPIST. PT HAS HAD NO CHANGES IN CONDITION, WILL CONTINUE TO MONITOR.
--- NOTE | 2018-05-29 13:23 | NUR ---
PATIENT REFUSING A SHOWER. THIS BENEFITS ANALYST PROVIDED PATIENT WITH BED BATH WIPES AND ENCOURAGED PATIENT TO USE THEM TO CLEAN IMPORTANT AREAS AND PERFORM PERICARE. PATIENT RESTING IN BED AT THIS TIME. NO OTHER NEEDS AT THIS TIME.
--- NOTE | 2018-05-29 16:55 | NUR ---
PT REFUSES PHYSICAL THERAPY THIS AFTERNOON, STATING THAT HE "OVERDID IT" THIS AM AND HE IS TOO TIRED TO DO ANOTHER SESSION. PT GIVEN PRN PAIN MANAGEMENT IN ADDITION TO SCHEDULED. PT BG IS 102, NO INSULIN THIS AFTERNOON TO BE GIVEN. WILL CONTINUE TO MONITOR.
--- NOTE | 2018-05-29 18:28 | NUR ---
PT HAS NOT REQUIRED INSULIN TODAY. PT STATES THAT HE WAS "TOO TIRED" TO PARTICIPATE IN PT THIS AFTERNOON, BUT DID PARTICIPATE THIS AM. PT [place] STUMP IS DRESSED, CDI. PT ABLE TO TRANSFER WITH ASSIST FROM WHEELCHAIR TO BED.
--- NOTE | 2018-05-29 20:00 | NUR ---
PATIENT RESTING QUIETLY IN BED, COVERS PULLED UP WATCING TV. PATIENT EXPRESSED NO NEEDS WHEN I INTRODUCED MYSELF OR WHEN DAYSHIFT TOOK ME IN TO GIVE BEDSIDE REPORT. PATIENT'S CALL LIGHT IS IN REACH.
--- NOTE | 2018-05-29 22:00 | NUR ---
PATIENT NOT VERY CONVERSIVE. RATES RIGHT STUMP PAIN AT 8/10. PO PAIN MEDS AND OTER BM MEDICATIONS GIVEN. ICE PACK FILLED FOR USE AT RIGHT LEG SURGICAL STUMP SITE. IV FLUSHES WITHOUT DIFFICULTY. BOWEL TONES ACTIVE AND LUNGS ARE CLEAR. PATIENT CONTINUES TO WATCH TV PAYING VERY LITTLE ATTENTION TO SSTAFF. WARM BLANKET GIVEN AND PATIENT SAID HE NEEDED NOTHING ELSE AT THIS TIME. LIGHT TURNED DOWN, CURTAIN AND DOOR PULLED, PATIENT'S CALL IGHT IS IN REACH.
--- NOTE | 2018-05-29 22:20 | NUR ---
V/S AND I&O DONE AND CHARTED. BLOOD SUGAR CHECK DONE AND CHARTED. JUAN CHOI NOTIFIED.
--- NOTE | 2018-05-29 22:21 | NUR ---
ICE WATER REFILLED.
--- NOTE | 2018-05-29 23:06 | NUR ---
PATIENT RESTING QUIETLY ALL COVERED UP IN HE BED RESPIRATIONS REULAAR AND EVEN, CALL LIGHT IN REACH, TV STILL ON.
--- NOTE | 2018-05-30 01:14 | NUR ---
PATIENT RESTING QUIETLY, EYES CLOSED, RESPIRATIONS EVEN AND REGULAR WITH A RATE OF 16. DARVIN'S TV IS STILL ON AND HIS CALL LIGHT IS IN REACH.
--- NOTE | 2018-05-30 03:45 | NUR ---
PATIENT HAS BEEN RESTING QUIETLY WITH NO COMPLAINTS. EYES CLOSED, RESPIRATIONS REGULAR AND EVEN AT A RATE OF 16BPM. CALL LIGHT IN REACH.
--- NOTE | 2018-05-30 06:27 | NUR ---
PATIENT HAS SLEPT PERIODICALLY OFF AND ON THROUGH THE NIGHT. PATIENT NEEDED NO SLIDING SCALE INSULIN FOR HIS PM COVERAGE. PAIN IS ABOUT 6/10 THIS AM JUST AFTER AM TYLENOL. ICE BAGS HAVE BEEN REPLACED TO THE RIGHT KNEE STUMP THROUGH OUT THE NIGHT. PATIENT'S AFFECT HAS REMAINED VERY FLAT AND HE IS NOT VERY CONVERSIVE. PATIENT WANTING TO KNOW IF HE WILL BE GOING TO [place] TODAY. PATIENT IS USING THE URINAL WITHOUT DIFFICULTY SO FAR THIS SHIFT. IV SITE FLUSHES WELL, BOWEL TONES ACTIVE AND LUNGS HAVE BEEN ESSENTIALLY CLEAR. PATIENT RESTING AT THIS TIME AND HIS CALL LIGHT IS IN REACH. RT STUMP DRESSING CDI AND LEFT LEG HAS COMPRESSION SOCK/SCD AND HEEL PROTECTOR.
--- NOTE | 2018-05-30 08:35 | NUR ---
PT UP IN BED, HAVING BREAKFAST, NO INSULIN THIS AM DUE TO INITIAL BG OF 123. PT STATES PAIN IS UNCHANGED FROM YESTERDAY, REPOSITIONED AND PLACED ICE TO STUMP, PRN PAIN MANAGEMENT OFFERED. PT MOVES WITH ASSIST IN BED. PT COMPLAINS OF NO OTHER SYMPTOMS. WILL CONTINUE TO MONITOR.
[2018-05-30] MEDS ORDERED: OXYCODONE HCL10 MG PO (09:27)
[2018-05-30] MEDS ORDERED: HYDROCODON-ACE1 EA11 PO (09:27)
--- NOTE | 2018-05-30 10:02 | NUR ---
FAXED CHART NOTES TO [facility] FACESHEET, H AND P X 2, OP NOTE, PROG NOTES, PT EVAL AND NOTES. RECIEVED FAX CONFIRMATION OF THIS. TALKED TO ISIAH ABOUT THIS PT.
[2018-05-30] MEDS ORDERED: PLAVIX75 MG PO (10:21)
[2018-05-30] MEDS ORDERED: FLOMAX0.4 MG PO (10:24)
[2018-05-30] MEDS ORDERED: MIRALAX17 GM PO (10:25)
--- NOTE | 2018-05-30 12:08 | NUR ---
AFTER 3 ATTEMPTS, UNABLE TO GET SUFFICIENT BLOOD FOR SAMPLE, PT REFUSED ADDITIONAL FOR BLOOD GLUCOSE READING. DOCUMENTED REFUSED.
--- NOTE | 2018-05-30 12:15 | NUR ---
ORDERS AND PASRR FAXED TO [facility], RECIEVED FAX CONFIRMATION.
--- NOTE | 2018-05-30 13:06 | NUR ---
NOTIFIED PROVIDER THIS AM THAT PT HR WAS UNDER PARAMETER FOR BETA RORY, ADVISED RECHECK AND ADMINISTRATION. AFTER RECHECK OF HR, IT WAS ABOVE 60 BPM, GAVE LOPRESSOR ORDERED.
--- NOTE | 2018-05-30 13:30 | NUR ---
RECIEVED NOTIFICATION THAT [facility] ACCEPTED THE ORDERS AND PT MALISSAE WOULD BE HERE SOOM TO PICK HIM UP.
--- NOTE | 2018-05-30 13:55 | NUR ---
PATIENT D/C VIA HIS OWN W/C TO [facility]. PATIENT REPORT CALLED TO [facility] BY KARMA.
--- NOTE | 2018-05-30 16:00 | NUR ---
FAXED RX FOR LYRICA TO [facility] PER REQUEST OF [facility], RECIEVED FAX CONFIRMATION.
== END 2018-05-30 13:55 | DRG 240 ==
LOC: DSVR 05-27 06:55 → MS 05-27 06:55
PROVIDERS: ADMIT Specialist
PROC: 0Y6H0Z1 Detachment at Right Lower Leg, High, Open Approach (ICD-10-PCS; principal; 2018-05-27 09:00)
DX: E11.52 Type 2 diabetes mellitus with diabetic peripheral angiopathy with gangrene (principal); I96 Gangrene, not elsewhere classified; M86.8X7 Other osteomyelitis, ankle and foot; E11.69 Type 2 diabetes mellitus with other specified complication; E11.621 Type 2 diabetes mellitus with foot ulcer; L97.519 Non-pressure chronic ulcer of other part of right foot with unspecified severity; G60.0 Hereditary motor and sensory neuropathy; E11.40 Type 2 diabetes mellitus with diabetic neuropathy, unspecified; I25.10 Atherosclerotic heart disease of native coronary artery without angina pectoris; F17.210 Nicotine dependence, cigarettes, uncomplicated; G89.4 Chronic pain syndrome; E78.5 Hyperlipidemia, unspecified; K21.9 Gastro-esophageal reflux disease without esophagitis; F41.9 Anxiety disorder, unspecified; G25.81 Restless legs syndrome; Z95.5 Presence of coronary angioplasty implant and graft; Z79.02 Long term (current) use of antithrombotics/antiplatelets; Z79.82 Long term (current) use of aspirin; Z79.4 Long term (current) use of insulin; Z79.891 Long term (current) use of opiate analgesic; Z79.51 Long term (current) use of inhaled steroids; Z79.899 Other long term (current) drug therapy; Z79.2 Long term (current) use of antibiotics; Z88.1 Allergy status to other antibiotic agents; Z88.5 Allergy status to narcotic agent; Z88.0 Allergy status to penicillin; Z88.8 Allergy status to other drugs, medicaments and biological substances
CPT/HCPCS: 01482; 36415; 80048; 85025; 88304; 88311; 97110; 97163; 97530; 99406; G8978; G8979; J1100; J1815; J2405; J2704; J2765; J2795; J3010; J3370; J7120

== ENCOUNTER 2018-07-25 09:10 | Emergency (ER) | payer MEDICARE, OTHER ==
[~2018-07-25] VITALS: Ht 188 cm; Wt 12.7 kg
--- OUTSIDE RECORDS SUMMARY | ~2018-07-25 | XMS | Encounter Summary ---
Demographics + + + | Address | [address] | | | [place] [address] | + + + | Home Phone | | + + + | Preferred Language | Unknown | + + + | Marital Status | | + + + | Jain Affiliation | Unknown | + + + | Race | Unknown | + + + | Ethnic Group | Unknown | + + + Author + + + | Author | [facility] | | | and [place] | + + + | Organization | [facility] | | | and [place] | + + + | Address | Unknown | + + + | Phone | Unavailable | + + + Support + + + + + | Name | Relationship | Address | Phone | + + + + + | Carol Ross | ECON | [address] | | | | | [place] | | | | | [address] | | + + + + + | Kaley King | ECON | [address] [facility] [address] | | | | | [place] [address] | | + + + + + Care Team Providers + +------+ + | Care Occupational Health Physician Name | Role | Phone | + +------+ + | Edwin Clark DO | PCP | | + +------+ + Encounter Details +--------+ + + + + | Date | Type | Department | Care Team | Description | +--------+ + + + + | 07/03/ | Orders Only | [facility] | Edwin Clark, | Type 2 diabetes | | 2018 | | [facility] | [address] | mellitus with | | | | [facility] | [facility], [place] | hyperglycemia, | | | | [address] [place], | [address] | without long-term | | | | [place] [address] | [phone] | current use of | | | | [phone] | | insulin (HCC) | | | | | | (Primary Dx) | +--------+ + + + + Social History + +-------+ +--------+------+ | Tobacco Use | Types | Packs/Day | Years | Date | | | | | Used | | + +-------+ +--------+------+ | Current Every Day | | 1 | | | | Smoker | | | | | + +-------+ +--------+------+ + +---+---+---+ | Smokeless Tobacco: | | | | | Never Used | | | | + +---+---+---+ + + +---------+ + | Alcohol Use | Drinks/We | oz/Week | Comments | | | ek | | | + + +---------+ + | Yes | | | rare | + + +---------+ + + + + | Sex Assigned at | Date Recorded | | | | + + + | Not on file | | + + + as of this encounter Plan of Treatment Not on fileas of this encounter Visit Diagnoses + + | Diagnosis | + + | Type 2 diabetes mellitus with hyperglycemia, without long-term current use of insulin | | (HCC) - Primary | + +"
--- OUTSIDE RECORDS SUMMARY | ~2018-07-25 | XMS | Encounter Summary ---
Demographics + + + | Address | [address] | | | [place] [address] | + + + | Home Phone | | + + + | Preferred Language | Unknown | + + + | Marital Status | | + + + | Hindu Affiliation | Unknown | + + + | Race | Unknown | + + + | Ethnic Group | Unknown | + + + Author + + + | Author | [facility] | | | and [place] | + + + | Organization | [facility] | | | and [place] | + + + | Address | Unknown | + + + | Phone | Unavailable | + + + Support + + + + + | Name | Relationship | Address | Phone | + + + + + | Carol Ross | ECON | [address] | | | | | [place] | | | | | [address] | | + + + + + | Kaley King | ECON | [address] | | | | | [place] [address] | | + + + + + Care Team Providers + +------+ + | Care Foot Piece Assembler Name | Role | Phone | + +------+ + | Edwin Clark DO | PCP | | + +------+ + Reason for Visit + + + | Reason | Comments | + + + | Medication Refill | | + + + Encounter Details +--------+--------+ + + + | Date | Type | Department | Care Team | Description | +--------+--------+ + + + | 07/19/ | Refill | [facility] | Edwin Clark, | Medication Refill | | 2017 | | [facility] | DO [address] | | | | | [facility] [address] | [facility], [place] | | | | | [address] [facility], | [address] | | | | | [place] [address] | [phone] | | | | | [phone] | | | +--------+--------+ + + + Social History + +-------+ [...] on fileas of this encounter Visit Diagnoses Not on filein this encounter"
--- OUTSIDE RECORDS SUMMARY | ~2018-07-25 | XMS | Encounter Summary ---
Demographics + + + | Address | [address] | | | [place] [address] | + + + | Home Phone | | + + + | Preferred Language | Unknown | + + + | Marital Status | | + + + | Methodist Affiliation | Unknown | + + + | Race | Unknown | + + + | Ethnic Group | Unknown | + + + Author + + + | Author | [facility] | | | and [place] | + + + | Organization | [facility] | | | and [place] | + + + | Address | Unknown | + + + | Phone | Unavailable | + + + Support + + + + + | Name | Relationship | Address | Phone | + + + + + | Carol Ross | ECON | [address] | | | | | [place] | | | | | [address] | | + + + + + | Kaley King | ECON | [address] | | | | | [place] [address] | | + + + + + Care Team Providers + +------+ + | Care Petroleum Analyst Name | Role | Phone | + [...] Medication Refill | | 2017 | | [facility] | DO [address] [place] | | | | | MEDICAL CL[facility] [address] | [facility], [place] | | | | | [address] [facility], | [address] | | | | | [place] [address] | [phone] | | | | | [phone] | | | +--------+--------+ + + + [...]
--- OUTSIDE RECORDS SUMMARY | ~2018-07-25 | XMS | Encounter Summary ---
Demographics + + + | Address | [address] | | | [place] [address] | + + + | Home Phone | | + + + | Preferred Language | Unknown | + + + | Marital Status | | + + + | Evangelical Affiliation | 1013 | + + + | Race | Unknown | + + + | Ethnic Group | Unknown | + + + Author + + + | Author | [facility] | + + + | Organization | [facility] | + + + | Address | Unknown | + + + | Phone | Unavailable | + + + Support + + +---------+ + | Name | Relationship | Address | Phone | + + +---------+ + | Carol Ross | ECON | Unknown | | + + +---------+ + Care Team Providers + +------+ + | Care Rabble Furnace Tender Name | Role | Phone | + +------+ + | Edwin Clark DO | PCP | | + +------+ + Reason for Visit + + + | Reason | Comments | + + + | Labs Only | [facility] 05/07/18 | + + + Encounter Details +--------+ + + + + | Date | Type | Department | Care Team | Description | +--------+ + + + + | 05/14/ | Documentati | [facility] | Sita Rowland, | Labs Only ([facility] | | 2018 | on Only | Kavon Wilkins | JOCELYN | Is[facility] 05/07/18) | | | | [address] [facility] [address] | | | | | | Street [facility] [address] | | | | | | [place] [address] | | | | | | [phone] | | | +--------+ + + + + Social History + + + [...] | | + +---+---+---+ + + | Comments: chewed 20 years | + + + + +---------+ + | Alcohol Use | Drinks/We | oz/Week | Comments | | | ek | | | + + +---------+ + | Yes | 1 Cans | 0.6 | | | | of beer | | | | | 0 | | | | | Standard | | | | | drinks or | | | | | | | | | | equivalen | | | | | t | | | + + +---------+ + + + + | Sex Assigned at | Date Recorded | | | | + + + | Not on file | | + + + as of this encounter Plan of Treatment Not on fileas of this encounter Visit Diagnoses Not on filein this encounter"
--- OUTSIDE RECORDS SUMMARY | ~2018-07-25 | XMS | Encounter Summary ---
Demographics + + + | Address | [address] | | | [place] [address] | + + + | Home Phone | | + + + | Preferred Language | Unknown | + + + | Marital Status | | + + + | Buddhism Affiliation | Unknown | + + + | Race | Unknown | + + + | Ethnic Group | Unknown | + + + Author + + + | Author | [facility] | | | and [place] | + + + | Organization | [facility] | | | and [place] | + + + | Address | Unknown | + + + | Phone | Unavailable | + + + Support + + + + + | Name | Relationship | Address | Phone | + + + + + | Carol Ross | ECON | [address] | | | | | [place] | | | | | [address] | | + + + + + | Kaley King | ECON | [address] | | | | | [place] [address] | | + + + + + Care Team Providers + +------+ + | Care Brand Sales Consultant Name | Role | Phone | + +------+ + | Edwin Clark DO | PCP | | + +------+ + Reason for Visit + + + | Reason | Comments | + + + | Medication Question | | + + + | Phone Attempt | [facility] | + + + Encounter Details +--------+ + + + + | Date | Type | Department | Care Team | Description | +--------+ + + + + | 06/20/ | Telephone | [facility] | Edwin Clark, | Medication Question; | | 2017 | | [facility] | DO [address] | Phone Attempt | | | | [facility] [address] | [facility], [place] | ([facility] | | | | [address] [place], | [address] | [place]) | | | | [place] [address] | [phone] | | | | | [phone] | | | +--------+ + + + [...]
--- OUTSIDE RECORDS SUMMARY | ~2018-07-25 | XMS | Clinical Summary ---
Demographics + + + | Address | [address] | | | [place] [address] | + + + | Home Phone | | + + + | Preferred Language | Unknown | + + + | Marital Status | | + + + | Confucianist Affiliation | Unknown | + + + | Race | Unknown | + + + | Ethnic Group | Unknown | + + + Author + + + | Author | [facility] | | | and [place] | + + + | Organization | [facility] | | | and [place] | + + + | Address | Unknown | + + + | Phone | Unavailable | + + + Support + + + + + | Name | Relationship | Address | Phone | + + + + + | Carol Ross | ECON | [address] | | | | | [place] | | | | | [address] | | + + + + + | Kaley King | ECON | [address] [facility] [address] | | | | | [place] [address] | | + + + + + Care Team Providers + +------+ + | Care Health And Safety Tech Name | Role | Phone | + +------+ + | Edwin Clark DO | PP | | + +------+ + Allergies + + + + + + | Active Allergy | Reactions | Severity | Noted | Comments | | | | | Date | | + + + + + + | Cephalexin | | | /20 | | | | | | 18 | | + + + + + + | Guaifenesin | | | 0220 | | | | | | 18 | | + + + + + + | Ketorolac | | | 20 | | | | | | 18 | | + + + + + + | Lisinopril | | | 11/28/19 | | | | | | 18 | | + + + + + + | Penicillins | | | 20 | | | | | | 18 | | + + + + + + | Propoxyphene | | | 02/07/20 | | | | | | 18 [...] 250 mg by mouth | | | 10/22 | | Activ | | (LAMISIL) 250 MG | Daily. Take one | | | 05/10 | | e | | tablet | [...] triamcinolone | Apply topically | | | 10/22 | | Activ | | (KENALOG) 0.1% [...] | | | | | directed by Md Marguerite, | | | | | | | [...] topically 3 times | each | | 6/20 | | e | | NO CODING [...] + + +---------+---------+------+------+-------+ | pregabalin | Take 1 capsule by | 90 | 2 | 08/2 | | Activ | | (LYRICA) 100 mg | mouth 3 times daily. | capsule | | 7/20 | | e | | capsule | | | | 18 | | | + + +---------+---------+------+------+-------+ | torsemide | Take 1 tablet by | 90 | 3 | 08/2 | | Activ | | (DEMADEX) 5 mg | mouth Daily. | tablet | | 9/20 | | e | | tablet | | | | 18 | | | + + +---------+---------+------+------+-------+ | clopidogrel | Take 1 tablet by | 90 | 3 | 08/2 | | Activ | | (PLAVIX) 75 mg | mouth Daily. | tablet | | 9/20 | | e | | tablet | | | | 18 | | | + + +---------+---------+------+------+-------+ | insulin glargine | Inject 80 Units | 3 pen | 3 | 06/22 | | Activ | | (BASAGLAR KWIKPEN) | under the skin | | | 2/20 | | e | | 100 units/mL | nightly. | | | 18 | | | | injection | | | | | | | | (pen)Indications: | | | | | | | [...] + + +---------+---------+------+------+-------+ | oxyCODONE | Take 1 tablet by | 112 | 0 | 06/22 | | Activ | | (ROXICODONE) 15 mg | mouth every 6 hours | tablet | | 4/20 | | e | | immediate release | as needed for Pain. | | | 18 | | | | tabletIndications: | For a max of 4 per | | | | | | | Pyztova-Xdbqh-Getwz | day. 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 | | | | | | | | (HCC), [facility] | | | | | | | | current use of | | | | | | | | opiate analgesic, | | | | | | | | Open wound of right | | | | | | | | foot, subsequent | | | | | | | | encounter, Tramadol | | | | | | | | allergy, Living in | | | | | | | | assisted living | | | | | | | + + +---------+---------+------+------+-------+ | insulin aspart | Inject 45 Units | 90 mL | 5 | 09/2 | | Activ | | (NOVOLOG) 100 | under the skin 3 | | | 8/20 | | e | | units/mL injection | times daily (before | | | 18 | | | | | meals). | | | | | | + + +---------+---------+------+------+-------+ | insulin lispro | Inject 10 Units | | | | 09/1 | Disco | | (HUMALOG KWIKPEN) | under the skin 3 | | | | 2/20 | ntinu | | 200 units/mL | times daily (before | | | | 18 | ed | | concentrated | meals). | | | | | | | injection (pen) | | | | | | | + + +---------+---------+------+------+-------+ | Insulin Glargine | Inject 62 Units | | | | 09/1 | Disco | | (LANTUS SOLOSTAR SC) | under the skin | | | | 2/20 | ntinu | | | nightly. 5x3ml | | | | 18 | ed | + + +---------+---------+------+------+-------+ | metFORMIN | Take 500 mg by mouth | | | | 09/0 | Disco | | (GLUCOPHAGE) 500 mg | 2 times daily (with | | | | /20 | ntinu | | tablet | breakfast & | | | | 18 | ed | | | dinner). | | | | | | + + +---------+---------+------+------+-------+ | oxyCODONE | Take 15 mg by mouth | | | | 06/22 | Disco | | (ROXICODONE) 15 mg | EVERY 4 TO 6 HOURS | | | | 4/ | ntinu | | immediate release | NEEDED for Pain. | | | | 18 | ed | | tablet | For a max [...] | 11/28/2017 | + + + | alteration tailor current use of opiate analgesic | 09/05/2017 | + + + | Type 2 diabetes mellitus with hyperglycemia, without long-term | 09/05/2017 | | current use of insulin (HCC) | | + + + | Bjpeufe-Dvltl-Qhkad disease type 1 | 09/05/2017 | + [...] | + + + | Atherosclerosis of [place] coronary artery of [place] heart without | 09/05/2017 | | angina pectoris | | + + + | alteration tailor current use of antithrombotics/antiplatelets | 09/05/2017 | + + + | alteration tailor current use of aspirin | 09/05/2017 | [...] | +--------+ + + + + | 07/19/ | Refill | | Edwin Clark, | Medication Refill | | 2017 | | | DO | | +--------+ + + + + | 07/15/ | Telephone | | Edwin Clark, | Medication Related | | 2017 | | | DO | (Orders needed to | | | | | | delete a medication | | | | | | due to reactions) | +--------+ + + + + | 07/05/ | Orders Only | | Edwin Clark, | Jvyeeie-Qrcwy-Inwdo | | 2018 | | | DO | disease type 1 | | | | | | (Primary Dx); | | | | | | 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 | | | | | | (HCC); [facility] | | | | | | current use of | | | | | | opiate analgesic; | | | | | | Open wound of right | | | | | | foot, subsequent | | | | | | encounter; Tramadol | | | | | | allergy; Living in | | | | | | assisted living | +--------+ + + + + | 07/04/ | Orders Only | | Edwin Clark, | Type 2 diabetes | | 2017 | | | DO | mellitus with | | | | | | hyperglycemia, | | | | | | without long-term | | | | | | current use of | | | | | | insulin ([facility]) | | | | | | (Primary Dx); | | | | | | 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 | | | | | | (HCC) | +--------+ + + + + | 07/03/ | Orders Only | | Edwin Clark, | Type 2 diabetes | | 2017 | | | DO | mellitus with | | | | | | hyperglycemia, | | | | | | without long-term | | | | | | current use of | | | | | | insulin ([facility]) | | | | | | (Primary Dx) | +--------+ + + + + | 06/20/ | Telephone | | Edwin Clark, | Medication Question; | | 2017 | | | DO | Phone Attempt | | | | | | ([facility] | | | | | | Carlos-EMANUEL) | +--------+ + + + + | 06/18/ | Telephone | | Edwin Clark, | Other | | 2017 | | | DO | | +--------+ + + + + | 06/17/ | Refill | | Edwin Clark, | Medication Refill | | 2017 | | | DO | | +--------+ + + + + | 06/11/ | Telephone | | Edwin Clark, | Paperwork | | 2017 | | | DO | ([facility]); | | | | | | Missing Paperwork | | | | | | ([facility] | | | | | | Assisted | | | | | | Living*Needs | | | | | | paperwork faxed back | | | | | | before 11:00 today) | +--------+ + + + + from [...] + + + | Blood Pressure | 115/75 | 03/07/20181127 PDT | + + + + | Pulse | 65 | 03/07/20181127 PDT | + + + + | Temperature | 36.7 C (98.1 F) | 03/07/20181127 PDT | + + + + | Respiratory Rate | 16 | 03/07/20181127 PDT | + + + + | Oxygen Saturation | 98% | 03/07/20181127 PDT | + + + + | Inhaled Oxygen | - | - | | Concentration | | | + + + + | Weight | 129.7 kg (286 lb) | 03/07/20181127 PDT | + + + + | Height | 188 cm (6' 2") | 03/07/20181127 PDT | + + + + | Body Mass Index | 36.72 | 03/07/20181127 PDT | + + + + Plan of Treatment + + + + + | Health Maintenance | Due Date | Last Done | Comments | + + + + + | Hepatitis C | | | | | Screening | 7 | | | + + + + + | PRIMARY CARE | | | | | OUTREACH-VERY | 7 | | | | INTENSE RISK EVERY 1 | | | | | MONTH | | | | + + + + + | Diabetic Eye Exam | | | | | (Bi-Annually) | 5 | | | + + + + + | Vaccine: | | | | | Dtap/Tdap/Td (1 - | 6 | | | | Tdap) | | | | + + + + + | Vaccine: Zoster (1 | | | | | of 2) | 7 | | | + + + + + | Colorectal Cancer | | 09/28/2009 | | | Screening (FIT) | 0 | | | + + + + + | Statin Therapy | | | | | (optimal intensity) | 5 | | | + + + + + | Vaccine: Influenza | | | | | (#1) | 8 | | | + + + + + | Hemoglobin A1c Q6 | | 02/27/2018, 02/24/2011 | | | Months | 8 | | | + + + + + | Diabetic Foot Exam | | 11/28/2017 | | | | 9 | | | + + + + + | Microalbumin | | 03/07/2018 | | | Screening | 9 | | | + + + + + | Vaccine: | Completed | 09/07/2010 | | | Pneumococcal 19-64 | | | | | (PPSV23 only) Medium | | | | | Risk | | | | + + + + + Procedures + +--------+ + + + | Procedure Name | Priori | Date/Time | Associated Diagnosis | Comments | | | ty | | | | + +--------+ + + + | LABS - EXTERNAL SCAN | | 06/05/2018 | | Results for this | | | | 0000 PDT | | procedure are in the | | | | | | results section. | + +--------+ + + + | LABS - EXTERNAL SCAN | | 06/04/2018 | | Results for this | | | | 0000 PDT | | procedure are in the | | | | | | results section. | + +--------+ + + + | LABS - EXTERNAL SCAN | | 06/04/2018 | | Results for this | | | | 0000 PDT | | procedure are in the | | | | | | results section. | + +--------+ + + + | LABS - EXTERNAL SCAN | | 05/29/2018 | | Results for this | | | | 0000 PDT | | procedure are in the | | | | | | results section. | + +--------+ + + + from Last 3 Months Results LABS - EXTERNAL SCAN (06/05/2018)Only the most recent of 4 results within the time period i s included. + + + | Narrative | Performed At | + + + | Ordered by an | | | unspecified provider. | | + + + from Last 3 Months Insurance + +--------+ +--------+ +---------+ | Payer | Benefi | Subscriber | Type | Phone | Address | | | t Plan | ID | | | | | | / | | | | | | | Group | | | | | + +--------+ +--------+ +---------+ | MEDICARE | MEDICA | [id number] | Medica | [phone] | | | | RE | | re | [phone] | | | | PART A | | | | | | | AND B | | | | | + +--------+ +--------+ +---------+ | [place]ICAID [place] | MEDICA | [id number] | Medica | [phone] | | [...] | 06/09/ | Home: | [address] | | | al/Alexander | | [phone] | [address] [place] | | | [place] | | | [phone] | [phone] | + +--------+ +--------+ + +
--- OUTSIDE RECORDS SUMMARY | ~2018-07-25 | XMS | Encounter Summary ---
Demographics + + + | Address | [address] | | | [place] [address] | + + + | Home Phone | | + + + | Preferred Language | Unknown | + + + | Marital Status | | + + + | Rastafari Affiliation | Unknown | + + + | Race | Unknown | + + + | Ethnic Group | Unknown | + + + Author + + + | Author | [facility] | | | and [place] | + + + | Organization | [facility] | | | and [place] | + + + | Address | Unknown | + + + | Phone | Unavailable | + + + Support + + + + + | Name | Relationship | Address | Phone | + + + + + | Carol Ross | ECON | [address] | | | | | [place] | | | | | [address] | | + + + + + | Kaley King | ECON | [address] | | | | | [place] [address] | | + + + + + Care Team Providers + +------+ + | Care Shactor Name | Role | Phone | + +------+ + | Edwin Clark DO | PCP | | + +------+ + Reason for Referral Evaluate & Treat (Routine) + + + + + + + | Status | Reason | Specialty | Diagnoses / | Referred By | Referred To | | | | | Procedures | Contact | Contact | + + + + + + + | Authorized | Specialty | Internal | Diagnoses | Eduardo, | Esha, | | | Services | Medicine - | Type 2 | Edwin Mercer DO | Vishal Pina, | | | Required | Endocrinology | diabetes | [address] | PhD [address] | | | | , Diabetes & | mellitus | [place], | [address] | | | | Metabolism | with | [place] | [place], | | | | | hyperglycemi | [address] | [place] [address] | | | | | a, without | Phone: | Phone: | | | | | long-term | [phone] | [phone] | | | | | current use | Fax: | Fax: | | | | | of insulin | [phone] | [phone] | | | | | ([facility]) | | | | | | | Polyneuropat | | | | | | | hy due to | | | | | | | medical | | | | | | | condition | | | | | | | ([facility]) | | | + + + + + + + Encounter Details +--------+ + + + + | Date | Type | Department | Care Team | Description | +--------+ + + + + | 07/04/ | Orders Only | [facility] | Edwin Clark, | Type 2 diabetes | | 2018 | | [facility] | [facility] [address] | mellitus with | | | | [facility] | [facility], [place] | hyperglycemia, | | | | [address] [facility], | [address] | without long-term | | | | [place] [address] | [phone] | current use of | | | | [phone] | | insulin (HCC) | | | | | | (Primary Dx); | | | | | | 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 | | | | | | (HCC) | +--------+ + + + + Social [...] as of this encounter Plan of Treatment + +--------+ + + | Name | Priori | Associated Diagnoses | Order Schedule | | | ty | | | + +--------+ + + | Endocrinology, External - AMB | Routin | Type 2 diabetes | Ordered: 07/04/2018 | | Referral | e | mellitus with | | | | | hyperglycemia, | | | | | without long-term | | | | | current use of | | | | | insulin (HCC) | | | | | Polyneuropathy due | | | | | to medical condition | | | | | (HCC) | | + +--------+ + + as of this encounter Visit Diagnoses + + | Diagnosis | + + | Type 2 diabetes mellitus with hyperglycemia, without long-term current use of insulin | | (HCC) - Primary | + + | 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
--- OUTSIDE RECORDS SUMMARY | ~2018-07-25 | XMS | Encounter Summary ---
Demographics + + + | Address | [address] | | | [place] [address] | + + + | Home Phone | | + + + | Preferred Language | Unknown | + + + | Marital Status | | + + + | Jain Affiliation | Unknown | + + + | Race | Unknown | + + + | Ethnic Group | Unknown | + + + Author + + + | Author | [facility] | | | and [place] | + + + | Organization | [facility] | | | and [place] | + + + | Address | Unknown | + + + | Phone | Unavailable | + + + Support + + + + + | Name | Relationship | Address | Phone | + + + + + | Carol Ross | ECON | [address] | | | | | [place] | | | | | [address] | | + + + + + | Kaley King | ECON | [address] [facility] [address] | | | | | [place] [address] | | + + + + + Care Team Providers + +------+ + | Care Paper Feeder Name | Role | Phone | + +------+ + | Edwin Clark DO | PCP | | + +------+ + Reason for Visit + + + | Reason | Comments | + + + | Paperwork | medicaitons | + + + | Missing Paperwork | [facility]*Needs paperwork faxed back before | | | 11:00 today | + + + Encounter Details +--------+ + + + + | Date | Type | Department | Care Team | Description | +--------+ + + + + | 06/11/ | Telephone | [facility] | Edwin Clark, | Paperwork | | 2018 | | [facility] | DO [address] [place] | [facility] | | | | [facility] | [place], [place] | Missing Paperwork | | | | [address] [place], | [address] | ([place] | | | | [place] [address] | [phone] | Assisted | | | | [phone] | | Living*Needs | | | | | | paperwork faxed back | | | | | | before 11:00 today) | +--------+ + + + + Social [...]
--- OUTSIDE RECORDS SUMMARY | ~2018-07-25 | XMS | Encounter Summary ---
Demographics + + + | Address | [address] | | | [place] [address] | + + + | Home Phone | | + + + | Preferred Language | Unknown | + + + | Marital Status | | + + + | Zoroastrian Affiliation | Unknown | + + + | Race | Unknown | + + + | Ethnic Group | Unknown | + + + Author + + + | Author | [facility] | | | and [place] | + + + | Organization | [facility] | | | and [place] | + + + | Address | Unknown | + + + | Phone | Unavailable | + + + Support + + + + + | Name | Relationship | Address | Phone | + + + + + | Carol Ross | ECON | [address] | | | | | [place] | | | | | [address] | | + + + + + | Kaley King | ECON | [address] [facility] [address] | | | | | [place] [address] | | + + + + + Care Team Providers + +------+ + | Care Daycare Manager Name | Role | Phone | + +------+ + | Edwin Clark DO | PCP | | + +------+ + Encounter Details +--------+ + + + + | Date | Type | Department | Care Team | Description | +--------+ + + + + | 07/05/ | Orders Only | [facility] | Edwin Clark, | Bpidlsu-Mumof-Ynhfr | | 2018 | | [facility] | [address] [place] | disease type 1 | | | | MEDICAL CLINIC [facility] | [facility], [place] | (Primary Dx); | | | | [address] [place], | [address] | Polyneuropathy due | | | | [place] [address] | [phone] | to medical condition | | | | [phone] | | (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
--- OUTSIDE RECORDS SUMMARY | ~2018-07-25 | XMS | Encounter Summary ---
Demographics + + + | Address | [address] | | | [place] [address] | + + + | Home Phone | | + + + | Preferred Language | Unknown | + + + | Marital Status | | + + + | Latter-Day Affiliation | Unknown | + + + | Race | Unknown | + + + | Ethnic Group | Unknown | + + + Author + + + | Author | [facility] | | | and [place] | + + + | Organization | [facility] | | | and [place] | + + + | Address | Unknown | + + + | Phone | Unavailable | + + + Support + + + + + | Name | Relationship | Address | Phone | + + + + + | Carol Ross | ECON | [address] | | | | | [place] | | | | | [address] | | + + + + + | Kaley King | ECON | [address] | | | | | [place] [address] | | + + + + + Care Team Providers + +------+ + | Care Photographer Model Name | Role | Phone | + [...] Description | +--------+--------+ + + + | 06/17/ | Refill | [facility] | Edwin Clark, | Medication Refill | | 2017 | | [facility] | DO [address] [place] | | | | | MEDICAL CLINIC [address] | [facility], [place] | | | | | [address] [facility], | [address] | | | | | [place] [address] | [phone] | | | | | [phone] | | | +--------+--------+ + + + [...]
--- OUTSIDE RECORDS SUMMARY | ~2018-07-25 | XMS | Encounter Summary ---
Demographics + + + | Address | [address] | | | [place] [address] | + + + | Home Phone | | + + + | Preferred Language | Unknown | + + + | Marital Status | | + + + | Denominational Affiliation | 1013 | + + + | Race | Unknown | + + + | Ethnic Group | Unknown | + + + Author + + + | Author | [facility] | + + + | Organization | [facility] | + + + | Address | Unknown | + + + | Phone | Unavailable | + + + Support + + +---------+ + | Name | Relationship | Address | Phone | + + +---------+ + | Carol Ross | ECON | Unknown | | + + +---------+ + Care Team Providers + +------+ + | Care Rn Midwife Name | Role | Phone | + +------+ + | Edwin Clark DO | PCP | | + +------+ + Reason for Visit + + + | Reason | Comments | + + + | Follow-up | Echo | + + + Encounter Details +--------+---------+ + + + | Date | Type | Department | Care Team | Description | +--------+---------+ + + + | 05/02/ | Office | [facility] | Karen Mesa | CAD in greenville artery | | 2018 | Visit | [facility] | [address] | (Primary Dx); | | | | [address] | [place] [address] | Hypertension goal BP | | | | [address] | [place] [address] | (blood pressure) < | | | | [place] [address] | [phone] | 140/80; Mixed | | | | [phone] | | hyperlipidemia; | | | | | | History of stroke; | | | | | | Type 2 diabetes | | | | | | mellitus with foot | | | | | | ulcer, with | | | | | | long-term current | | | | | | use of insulin | | | | | | (HCC); CMT | | | | | | (Ynvggju-Dklvn-Hfpje | | | | | | disease); Current | | | | | | smoker; | | | | | | Pre-operative | | | | | | cardiovascular | | | | | | examination | +--------+---------+ + + + Social History + + [...] + + + | Blood Pressure | 104/48 | 05/02/2018 10:17 AM PDT | + + + + | Pulse | 62 | 05/02/2018 10:17 AM PDT | + + + + | Temperature | - | - | + + + + | Respiratory Rate | 20 | 05/02/2018 10:17 AM PDT | + + + + | Oxygen Saturation | 98% | 05/02/2018 10:17 AM PDT | + + + + | Inhaled Oxygen | - | - | | Concentration | | | + + + + | Weight | 124.7 kg (275 lb) | 05/02/2018 10:17 AM PDT | + + + + | Height | 188 cm (6' 2") | 05/02/2018 10:17 AM PDT | + + + + | Body Mass Index | 35.31 | 05/02/2018 10:17 AM PDT | + + + + in this encounter Instructions Patient Instructions - Karen Mesa ARNP - 05/02/2018 10:00 AM PDTYour Echo was no rmal ,and okay to have surgery, but still need CMP and lipids done Keep trying to quit smoking Call me for appointment After you get surgery if needed, other rodriguez see me in one year in this encounter Progress Notes Karen Mesa, GIAN - 05/02/2018 10:00 AM PDTFormatting of this note may be differen t from the original. Date of visit: 05/04/2018 Primary Care Physician: Edwin Clark CHIEF COMPLAINT: Chief Complaint Patient presents with Follow-up Echo HISTORY OF PRESENT ILLNESS: Mr. Rodríguez Sanz is a 62-year-old man who is here today to follow-up on echo results which I ordered For preoperative evaluation for cardiac risk for planned right leg amputation by Dr. Brendan Alberts in [place]. He is a patient of Dr. Mckeon, and has also been seen Dr. Grimes in the past as well. He was last seen by Dr. Mckeon on May 02, 2016 He has a history of coronary artery disease and OK in 2008 with angioplasty and stentin g done while he lived in [facility]. He also has a history of lower extremity edema, hypert ension, hyperlipidemia, diabetes, previous stroke ,Charcot Blanca tooth disease, cervical mot ion tenderness ,COPD, current smoker, and depression. He is followed 3 times per week by would care clinic at [facility] for non healing w ounds on feet and shins. I saw him last in 04/09/2018, when I ordered Echo and CMP and lipid panel, but only Echo do ne. His previous procedures and testing are detailed below. His Echo performed April 10, 2018 shows a normal EF of 55 percent, LV normal in size and w all thickness, no regional wall abnormalities, normal diastolic function, RV normal in size and function, mild enlargement of right atrium, no significant valvular abnormalities, and n o pericardial or pleural effusion. EKG done in the office 04/09/2018 was normal EKG with normal sinus rhythm at 67 bpm, and similar in morphology to EKG performed in April 2017. He brought his medication list from [facility] ( [facility]) and I reviewed personally. He is still smoking one pack per day and reports he is not able to quit and has tried many alternatives, including Chantix. He denies chest pain, palpitations, syncope, but reports occasional dizziness, and mild NORMAN , though generally not very active. He has some mild lower extremity edema and erythema, He continues to be followed for his wounds at [facility] wound clinic I had previously reviewed their notes today, as well as notes from Dr. Jarrett in October 2017, and Dr. Edwin Clark, and surgeon Dr. Brendan Alberts who saw him on February 22, 2018. I also reviewed notes and imaging from vascular surgeon Dr. Guardado , and NICK performed on 2017 noted normal triphasic waveforms and Dr. Guardado noted that though normal try with f low to his right lower extremity and though he has an adequate arterial supply to heal a BKA he told him that the chances of a BKA healing are less than the chances of an above-knee am putation healing due to diabetes and other co morbidities. He documented that the patient does not walk and does not plan on walking after amputation , which Rodríguez affirmed today, and reported as documented by Dr. Guardado, that he would prefer to have a BKA He is in wheelchair today and reports he has difficulty weight bearing. REVIEW OF SYSTEMS: Negative except for pertinent items noted in HPI. Constitutional: reports ongoing Fatigue. Denies unexplained weight loss. Appetite is poo r. Weight is stable. Denies night sweats fevers or chills HENT: Denies nosebleeds. Denies hearing problems. Denies dysphagia Eyes: Denies visual disturbance or double vision. Denies history of cataracts or glaucoma or macular degeneration. Respiratory/Sleep:: reports NORMAN, and dry frequent cough. Denies hemoptysis or excessive spu carmelita production. Denies snoring, orthopnea, PND. Cardiovascular: mild LE edema Denies chest pain, palpitations Denies history of rheumati c fever. Gastrointestinal:history of GERD, on Zantac .Occasional nausea and vomiting.. Denies abdom inal pain and blood in stool. Genitourinary: Denies hematuria. Musculoskeletal: Ongoing joint ,back , and muscle pain w/ CMT, wheel chair bound Skin:Non healing wounds to feet and shins, followed by [facility] wound clinic. Denies color change. Denies rash Neurological: Neuropathy and motor function loss with Charcot Blanca tooth affecting feet an d hands,reports occasional dizziness,Restless leg syndrome. Denies history of stroke/Transie nt ischemic attack.Denies history of seizures. Denies syncope . Hematological:/Oncology" Does not bruise/bleed easily. Denies history of cancer Endocrine: Diabetes Type II, on insulin:Denies thyroid disease. Denies excessive thirst or hunger. Psychiatric/Behavioral: Hx Depression.The patient denies any history of depression or anxie ty or other psychiatric illness. Vaccines: Current on 2017 flu vaccine. Current on pneumonia vaccine. Habits/Social : Current smoker, 1 ppd since 11 years old., drinks 1 beer per month, previous ly heavy EtOH use. Drinks 1 servings of caffeine daily . Denies illicit drug use. Wheelch air bound. Served in [employer], worked [employer] . Lives in Assisted care facility in [facility]. Hx MRSA Outpatient Medications Prior to Visit Medication Sig Dispense Refill ascorbic acid (VITAMIN C) 500 MG tablet Take 500 mg by mouth daily. aspirin 81 MG tablet Take 81 mg by mouth daily. atorvastatin (LIPITOR) 20 MG tablet Take 20 mg by mouth nightly. baclofen (LIORESAL) 10 MG tablet Take 10 mg by mouth 3 (three) times daily as needed. busPIRone (BUSPAR) 10 MG tablet Take 10 mg by mouth 2 (two) times daily. CHOLECALCIFEROL PO Take 1,000 Units by mouth 2 (two) times daily. ciprofloxacin (CIPRO) 500 MG tablet Take 500 mg by mouth 2 (two) times daily. clindamycin (CLEOCIN T) 1 % lotion Apply 60 mLs topically 2 (two) times daily. clindamycin (CLEOCIN) 300 MG capsule Take 300 mg by mouth every 6 (six) hours. clopidogrel (PLAVIX) 75 MG tablet Take 75 mg by mouth daily. clotrimazole (LOTRIMIN) 1 % cream Apply topically 2 (two) times daily. docusate sodium (COLACE) 100 MG capsule Take 100 mg by mouth daily as needed. DULoxetine (CYMBALTA) [address] capsule Take 60 mg by mouth daily. fluconazole (DIFLUCAN) 150 MG tablet Take 150 mg by mouth once. insulin glargine (LANTUS) 100 UNIT/ML injection Inject 62 Units into the skin nightly. 73 units daily insulin lispro protamine-insulin lispro (HUMALOG 50/50) (50-50) 100 UNIT/ML SUSP Inject 10 Units into the skin 3 (three) times daily before meals. Plus sliding scale ipratropium-albuterol (COMBIVENT) 18-103 MCG/ACT inhaler Inhale 2 puffs into the lungs every 6 (six) hours as needed for Wheezing. ipratropium-albuterol (DUO-NEB) 0.5-2.5 mg/3mL Take 3 mLs by nebulization. isosorbide dinitrate (ISORDIL) 30 MG tablet Take 30 mg by mouth daily. melatonin 3 MG TABS Take 3 mg by mouth nightly. metFORMIN (GLUCOPHAGE) 500 MG tablet Take 500 mg by mouth 2 (two) times daily with meal s. metoprolol (LOPRESSOR) 25 MG tablet Take 25 mg by mouth 2 (two) times daily. naloxone (NARCAN) 4 MG/10ML injection Inject into the vein once. Naloxone HCl (NARCAN) 4 MG/0.1ML LIQD 1 spray by Nasal route as needed. Nebulizers MISC by Does not apply route. nitroGLYCERIN (NITROSTAT) 0.[address] 0.4 mg under the tongue every 5 (five) minutes as needed for Chest pain. omeprazole (PRILOSEC) 40 MG capsule Take 40 mg by mouth every morning before breakfast. ondansetron (ZOFRAN) 4 MG tablet Take 4 mg by mouth every 12 (twelve) hours as needed f or Nausea. oxycodone 10 MG tablet Take 10 mg by mouth every 6 (six) hours as needed. povidone-iodine (BETADINE) 10 % external solution Apply topically as needed for Wound Care. pregabalin (LYRICA) 150 MG capsule Take 150 mg by mouth 3 (three) times daily. ranitidine (ZANTAC) 150 MG tablet Take 150 mg by mouth every evening. ropinirole (REQUIP) 2 MG tablet Take 2 mg by mouth daily. @@ noon ropinirole (REQUIP) 3 MG tablet Take 3 mg by mouth nightly. silver sulfADIAZINE (SILVADENE) 1 % cream Apply topically daily. terbinafine (LAMISIL) 250 MG tablet Take 250 mg by mouth daily. torsemide (DEMADEX) 5 MG tablet Take 5 mg by mouth daily as needed. triamcinolone (KENALOG) 0.1 % cream Apply topically 2 (two) times daily. oxyCODONE (ROXICODONE) 15 MG immediate release tablet Take 15 mg by mouth every 4 (four ) hours as needed for Pain. No facility-administered medications prior to visit. PHYSICAL EXAM: Wt Readings from Last 3 Encounters: 05/02/18 124.7 kg (275 lb) 04/09/18 127 kg (280 lb) 05/03/17 121.6 kg (268 lb) Temp Readings from Last 3 Encounters: 01/29/15 97.7 F (36.5 C) (Oral) 06/29/14 97.6 F (36.4 C) (Temporal) 06/15/14 97.5 F (36.4 C) BP Readings from Last 3 Encounters: 05/02/18 104/48 04/09/18 100/48 04/04/18 116/68 Pulse Readings from Last 3 Encounters: 05/02/18 62 04/09/18 67 04/04/18 61 GENERAL: Well developed, well nourished, in no distress. Unkempt and appears older than st ated age HEENT: Normocephalic, atraumatic. EYES: PERRL, EOM normal. MOUTH: Oral mucosae moist, dentition adequate, no lesions noted NECK: No JVD, lymphadenopathy, thyromegaly, bruits. Carotid pulses are 2+ bilaterally LUNGS: Clear to auscultation with no rales, rhonchi noted, respirations unlabored HEART: Nondisplaced PMI, regular rate and rhythm, S1, S2 normal. No murmurs, rubs or gall ops noted. ABDOMEN: Soft, nontender, no organomegaly, masses or bruits. Bowel sounds are normal in a ll 4 quadrants. The abdominal aortic pulsation is not palpable. EXTREMITIES: Mild Bilateral PTE, mild erythema, lower legs in open boots and dry dressing intact. Radial pulses 2+ bilaterally. Femoral pulses are 1+ bilaterally without bruits. D P and PT pulses are 1+ bilaterally. Mild clubbing. SKIN: Warm and dry, capillary refill is normal, no lesions. NEUROLOGIC: Awake, alert and oriented x 3. No focal motor or sensory deficits. PSYCHIATRIC: Appropriate, affect appears normal DATA: Blood tests: Lab Results Component Value Date WBC 10.9 07/07/2014 RBC 4.8 07/07/2014 HGB 14.9 07/07/2014 HCT 40.4 (A) 07/07/2014 PLT 178 07/07/2014 Lab Results Component Value Date NA 139 07/07/2014 K 4.3 07/07/2014 CL 105 07/07/2014 CO2 24 07/07/2014 ANIONGAP 10.0 07/07/2014 GLUF 104 07/07/2014 BUN 16 07/07/2014 CREATININE 0.98 07/07/2014 BCR 19.8 05/23/2013 BCR 19.8 05/23/2013 CA 9.6 07/07/2014 EGFR 60 07/07/2014 Lab Results Component Value Date CHOL 152 07/07/2014 TRIG 88 07/07/2014 LDL 99 07/07/2014 GLUF 104 07/07/2014 HGBA1C 7.5 (A) 07/07/2014 Lab Results Component Value Date CKTOTAL 87.0 05/23/2013 TSH 0.57 09/04/2013 CRP 6.5 2014 No results found for: METF, NMETFX, TFNMFX, [id number], [id number], TOTEPI PROCEDURES/ IMAGING : History PCI stent:/Angiogram 03/25 2010: LAD (3.0 15 mm Promus drug-eluting stent was ( Pacemaker/ICD no Last stress test 12/2014-Stress MPI - no ischemia EF 42% US NICK restin04/04/2018: ABIs and TBI's may be elevated due to arterial wall calcificati on and limited compressibility. Normal triphasic waveforms.Right NICK: 1.53 Left NICK: 1.43 Right TBI: 0.82 Left TBI: 1.11 ECHO: Last Echo: ([facility]): 04/10/2018:SR. TDS EF 55-60 percent. LV normal in size and wall thickness . No regional wall motion abnormalities. Normal diastolic function for age of patient. RV normal in size and function. Normal size LA, mild MENDY. Aortic valve trileaflet, no aortic regurgitation or stenosis. Mitral valve normal, trace MR. Tricuspid valve normal. Pulmon serene pressures not assessed due to absence of TR jet. No pericardial or pleural effusion. I VC small, <1.5 cm, CVP 0-5 mmHg. Arch not imaged Echo 2015: EF 65-70 percent RV normal size and function. Normal size atria. Trileaf let aortic valve with sclerosis without stenosis and mild calcification. No MR. no TR. Aor tic root, ascending aorta, and aortic arch are normal EKG/EVENT MONITOR EK2016: Normal sinus rhythm, normal EKG, wondering baseline. Rate 72 bpm, SC 172 ms, QRS 86 ms, QTC 431 ms (done in W/C), reviewed by me EK04/09/2018: Normal sinus rhythm, normal EKG. low voltage QRS to limb leads poor R-wave progression Rate 67 bpm, SC 176 ms, QRS 88 ms, QTC 422 ms,( done in W/[facility]) , tracing personal ly reviewed by me and compared to previous EKG LABS: Labs: 2016: Cholesterol 129, triglycerides 125, HDL 25, LDL 79, VLDL 25, ratio 5.2, no n-HDL cholesterol 104. Sodium 135, potassium 5.2, chloride 102, CO2 29, glucose 125, BUN 16 , creatinine 1.12, GFR 67, AST 17, LT 11, alk phos 63, total bilirubin 0.6, A1c 7.4, C-pepti de 1.56, TSH 0.938, WBC 8, hemoglobin 13.2, hematocrit 41.4, platelets 188 Labs 2016: Sodium 137, potassium 4.1, chloride 104, glucose 154, calcium 9.3, BUN 22, creatinine 0.98, GFR 78 Labs: 02/21/2018: CMP: Sodium 138, potassium 4.3, chloride 1 awake, glucose 241, BUN 20, crea tinine 1.24, AST 9, ALT 7, alk phos 61, total bilirubin 0.3, GFR 59, albumin 3.6. CBC: WBC 5.4, RBC 4.27, hemoglobin 12.8, hematocrit 37.2, platelets 136. ESR 26 INR 0.9 ASSESSMENT & PLAN: He was here today for preoperative cardiac risk assessment for planned right leg amputati on by Dr. Alberts. His Echo performed April 10, 2018 shows a normal EF of 55 percent, LV normal in size and wa ll thickness, no regional wall abnormalities, normal diastolic function, RV normal in size a nd function, mild enlargement of right atrium, no significant valvular abnormalities, and no pericardial or pleural effusion. I reviewed results with him in detail. He is already had his NICK performed by Dr. Guardado on April 04 which shows adequate arterial jessie w, He is asymptomatic for any chest pain and blood pressure and heart rate overall well cont rolled with stable EKG done in the office In March showing normal sinus rhythm, so I do not think he needs a stress test repeated , especially with Echo being so normal I assess him as having low cardiac risk for surgery, which I told him today . Smoking cessation again encouraged but he is not ready and increased risk with long smoki ng history and inability to exercise. For cardiac medications, he should continue on with ASA 81 mg, Lipitor 20 mg qhs, Plavix 75 mg, isordil 30 mg, Metoprolol 25 mg BID,Lipitor 20 mg, and Demadex 5 mg prn . 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 I will let him know about labs, and will see him back in one year,but will see him sooner if needed. 1. CAD in green[place] artery 2. Hypertension goal BP (blood pressure) < 140/80 3. Mixed hyperlipidemia 4. History of stroke 5. Type 2 diabetes mellitus with foot ulcer, with long-term current use of insulin (HCC) 6. CMT (Vlwyqmj-Lztry-Sjsam disease) 7. Current smoker 8. Pre-operative cardiovascular examination No orders of the defined types were placed in this encounter. The following portions of the patient's history were personally reviewed by me and updated as appropriate: EKG tracings, other specialty provider and PCP notes, current and previous cardiac testing and procedure reports and data, documents on medication and history from care facility, med [employer] bottles brought to clinic Allergies, current medications.labs Family history, past medical history, past social history, past surgical history. Problem list. GIAN Valdez [facility] Cardiology 05/04/2018in this encounter Plan of Treatment Not on fileas of this encounter Visit Diagnoses + + | Diagnosis | + + | CAD in green[place] artery - Primary | + + | Coronary atherosclerosis of greenville coronary artery | + + | Hypertension goal BP (blood pressure) < 140/80 | + + | Unspecified essential hypertension | + + | Mixed hyperlipidemia | + + | History of stroke | + + | Transient ischemic attack (TIA), and cerebral infarction without residual deficits | + + | Type 2 diabetes mellitus with foot ulcer, with long-term current use of insulin (HCC) | + + | CMT (Rkikyfw-Bgwae-Wlbpw disease) | + + | Peroneal muscular atrophy | + + | Current smoker | + + | Tobacco use disorder | + + | Pre-operative cardiovascular examination | + +
--- OUTSIDE RECORDS SUMMARY | ~2018-07-25 | XMS | Encounter Summary ---
Demographics + + + | Address | [address] | | | [place] [address] | + + + | Home Phone | | + + + | Preferred Language | Unknown | + + + | Marital Status | | + + + | Samaritan Affiliation | Unknown | + + + | Race | Unknown | + + + | Ethnic Group | Unknown | + + + Author + + + | Author | [facility] | | | and [place] | + + + | Organization | [facility] | | | and [place] | + + + | Address | Unknown | + + + | Phone | Unavailable | + + + Support + + + + + | Name | Relationship | Address | Phone | + + + + + | Carol Ross | ECON | [address] | | | | | [place] | | | | | [address] | | + + + + + | Kaley King | ECON | [address] | | | | | [place] [address] | | + + + + + Care Team Providers + +------+ + | Care Soda Jerker Name | Role | Phone | + [...] Medication Refill | | 2017 | | [facility] | DO [address] [place] | | | | | MEDICAL CLIN[facility] [address] | [facility], [place] | | | | | [address] [facility], | [address] | | | | | [place] [address] | [phone] | | | | | [phone] | | | +--------+--------+ + + + [...]
--- OUTSIDE RECORDS SUMMARY | ~2018-07-25 | XMS | Clinical Summary ---
Demographics + + + | Address | [address] | | | [place] [address] | + + + | Home Phone | | + + + | Preferred Language | Unknown | + + + | Marital Status | | + + + | Temple Affiliation | Unknown | + + + | Race | Unknown | + + + | Ethnic Group | Unknown | + + + Author + + + | Author | [facility] | | | and [place] | + + + | Organization | [facility] | | | and [place] | + + + | Address | Unknown | + + + | Phone | Unavailable | + + + Support + + + + + | Name | Relationship | Address | Phone | + + + + + | Carol Ross | ECON | [address] | | | | | [place] | | | | | [address] | | + + + + + | Kaley King | ECON | [address] [facility] [address] | | | | | [place] [address] | | + + + + + Care Team Providers + +------+ + | Care Shade Bander Name | Role | Phone | + [...] | | | | | | | Xsjxkyr-Nvdxs-Nunaq | day. 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 | 09/05/2017 | + + + | 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 | 09/05/2017 | [...] Orders Only | | Edwin Clark, | Aoainxm-Lmyma-Bzrik | | 2018 | | | DO | disease type 1 | | | | | | (Primary Dx); | | | | | | 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 | | | | | | (HCC); group home | | | | | | current [...] | | | | | | insulin ([facility]) | | | | | | (Primary [...] | | | | | | insulin ([facility]) | | | | | | (Primary [...] | 2017 | | | DO | ([facility]); | | | | | | Missing Paperwork | | | | | | ([facility] | | | | | | Assisted [...] +--------+ +---------+ | MEDICARE | MEDICA | [id number] | Medica | [phone] | | | | RE | | re | [phone] | | | | PART A | | | | | | | AND B | | | | | + +--------+ +--------+ +---------+ | MEDICAID [place] | MEDICA | [id number] | Medica | [phone] | | [...] | | | [place] | | | [phone] | [phone] | + +--------+ +--------+ + +
--- OUTSIDE RECORDS SUMMARY | ~2018-07-25 | XMS | Encounter Summary ---
Demographics + + + | Address | [address] | | | [place] [address] | + + + | Home Phone | | + + + | Preferred Language | Unknown | + + + | Marital Status | | + + + | Congregation Affiliation | Unknown | + + + | Race | Unknown | + + + | Ethnic Group | Unknown | + + + Author + + + | Author | [facility] | | | and [place] | + + + | Organization | [facility] | | | and [place] | + + + | Address | Unknown | + + + | Phone | Unavailable | + + + Support + + + + + | Name | Relationship | Address | Phone | + + + + + | Carol Ross | ECON | [address] | | | | | [place] | | | | | [address] | | + + + + + | Kaley King | ECON | [address] | | | | | [place] [address] | | + + + + + Care Team Providers + +------+ + | Care Radio Mechanic Helper Name | Role | Phone | + [...] | | | | | hyperglycemi | [address] | [place] [address] | | | | | a, without | Phone: | Phone: | | | | | long-term | [phone] | [phone] | | | | | current use | Fax: | Fax: | | | | | of insulin | [phone] | [phone] | | | | | ([facility]) | | | | | | | Polyneuropat | | | | | | | hy due to | | | | | | | medical | | | | | | | condition | | | | | | | ([facility]) | | | + + + + + + + Encounter Details +--------+ + + + + | Date | Type | Department | Care Team | Description | +--------+ + + + + | 07/04/ | Orders Only | [place] [facility] | Edwin Clark, | Type 2 diabetes | | 2018 | | [facility] | [facility] [address] [place] | mellitus with | | | | [facility] | [facility], [place] | hyperglycemia, | | | | [address] [facility], | [address] | without long-term | | | | [place] [address] | [phone] | current use of | | | | [phone] | | insulin (HCC) | | | [...]
--- OUTSIDE RECORDS SUMMARY | ~2018-07-25 | XMS | Clinical Summary ---
Demographics + + + | Address | [address] | | | [place] [address] | + + + | Home Phone | | + + + | Preferred Language | Unknown | + + + | Marital Status | | + + + | Denominational Affiliation | 1013 | + + + | Race | Unknown | + + + | Ethnic Group | Unknown | + + + Author + + + | Author | [facility] | + + + | Organization | [facility] | + + + | Address | Unknown | + + + | Phone | Unavailable | + + + Support + + +---------+ + | Name | Relationship | Address | Phone | + + +---------+ + | Carol Ross | ECON | Unknown | | + + +---------+ + Care Team Providers + +------+ + | Care Senior Tax Analyst Name | Role | Phone | [...] (See Comments) | Medium | 11/19/19 | Welts on legs | | | | | [...] | e | + + +-------+---------+------+------+-------+ | ciprofloxacin | Take 500 mg by mouth | | | | | Activ | | (CIPRO) 500 MG | 2 (two) times | | | | | e | | tablet | daily. | | | | | | + + +-------+---------+------+------+-------+ | clotrimazole | Apply topically 2 | | | | | Activ | | (LOTRIMIN) 1 % cream | (two) times daily. | | | | | e | + + +-------+---------+------+------+-------+ | fluconazole | Take 150 mg by mouth | | | | | Activ | | (DIFLUCAN) 150 MG | once. | | | | | e | | tablet | | | | | | | + + +-------+---------+------+------+-------+ | omeprazole | Take 40 mg by mouth | | | | | Activ | | (PRILOSEC) 40 MG | every morning before | | | | | e | | capsule | breakfast. | | | | | | + + +-------+---------+------+------+-------+ | terbinafine | Take 250 mg by mouth | | | | | Activ | | (LAMISIL) 250 MG | daily. | | | | | e | | tablet | | | | | | | + + +-------+---------+------+------+-------+ | triamcinolone | Apply topically 2 | | | | | Activ | | (KENALOG) 0.1 % | (two) times daily. | | | | | e | | cream | | | | | | | + + +-------+---------+------+------+-------+ | baclofen | Take 10 mg by mouth | | | | | Activ | | (LIORESAL) 10 MG | 3 (three) times | | | | | e | | tablet | daily as needed. | | | | | | + + +-------+---------+------+------+-------+ | nitroGLYCERIN | Place 0.4 mg under | | | | | Activ | | (NITROSTAT) 0.4 MG | the tongue every 5 | | | | | e | | SL tablet | (five) minutes as | | | | | | | | needed for Chest | | | | | | | | pain. | | | | | | + + +-------+---------+------+------+-------+ | clindamycin | Take 300 mg by mouth | | | | | Activ | | (CLEOCIN) 300 MG | every 6 (six) | | | | | e | | capsule | hours. | | | | | | + + +-------+---------+------+------+-------+ | clindamycin | Apply 60 mLs | | | | | Activ | | (CLEOCIN T) 1 % | topically 2 (two) | | | | | e | | lotion | times daily. | | | | | | + + +-------+---------+------+------+-------+ | Naloxone HCl | 1 spray by Nasal | | | | | Activ | | (NARCAN) 4 MG/0.1ML | route as needed. | | | | | e | | LIQDIndications: | | | | | | | | Only to be used if | | | | | | | | directed by 911 | | | | | | | + + +-------+---------+------+------+-------+ | metoprolol | Take 25 mg by mouth | | | | | Activ | | (LOPRESSOR) 25 MG | 2 (two) times daily. | | | | | e | | tablet | | | | | | | + + +-------+---------+------+------+-------+ | povidone-iodine | Apply topically as | | | | | Activ | | (BETADINE) 10 % | needed for Wound | | | | | e | | external solution | Care. | | | | | | + + +-------+---------+------+------+-------+ | ropinirole | Take 3 mg by mouth | | | | | Activ | | (REQUIP) 3 MG tablet | nightly. | | | | | e | + + +-------+---------+------+------+-------+ | silver | Apply topically | | | | | Activ | | sulfADIAZINE | daily. | | | | | e | | (SILVADENE) 1 % | | | | | | | | cream | | | | | | | + + +-------+---------+------+------+-------+ | | Take 1 tablet by | | | | | Activ | | sulfamethoxazole-tri | mouth 2 (two) times | | | | | e | | methoprim (BACTRIM | daily. 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 | 09/05/2017 | + + + | Preop cardiovascular exam | 05/02/2016 | + + + + + | Last Assessment & Plan: 60 yr old male with H/o CAD s/p PCI | | in [facility] for unknown vessel-2009No chest pain- | | asymptomatic, preop for shoulder surgery under [place] comeLimited | | exertion- wheel chair bound12/2014-Stress MPI - no ischemia EF | | 42%01/04/2016- Echo- normal LV functionContinue ASA, Plavix, | | Metoprolol, Simvastatin, ImdurEKG- NSR ?inf infarct- poor quality | | EKGHe is at moderate risk for perioperative cardiac [...] with immobilityRecommend foot elevation, compression | | stockingWill add Bumex 1mg and increase Metolazone 5mg dailyBMP | | in 1 weekFollow up in 4 weeks. | |Follow up in 4 weeks. | + + + + + | Hypertension goal BP (blood pressure) < 140/80 | 04/06/2014 | + + + | [...] 04/06/2014 | + + + | CMT (Fjrnmgo-Wabja-Ypfxn disease) | 01/15/2012 | + + + | Diabetes mellitus (HCC) | 01/15/2012 | + + + | Iron deficiency anemia | 01/15/2012 | + + + | Vitamin D deficiency | 01/15/2012 | + + + | CAD in s[place]ia artery | 01/15/2012 | + + + + + | Overview: S/P PCI. Last Assessment & Plan: H/o CAD s/p PCI | | in [facility] ED[facility] for unknown vessel-2009No chest pain- | [...] disorder | 01/15/2012 | + + + Resolved Problems + + + + | Problem | Noted | Resolved | | | Date | Date | + + + + | Chest pain | 11/19/19 | | | | 15 | 8 | + + + + + + | Last Assessment & Plan: chest pain- atypical- non | | reproducible- h/o CAD-PCIWill do Stress MPI to evaluate the | | progression of CAD2D echo to evaluate LV function- WMA, | | valvesContinue ASA, Plavix, Metoprolol, Simvastatin, ImdurLDL- | | 99, HDl- 35, Chs- 152, Cr- 0.98 | + + Encounters +--------+ + + + + | Date | Type | Specialty | Care Team | Description | +--------+ + + + + | 05/14/ | Documentati | | Sita Rowland, | Labs Only ([facility] | | 2018 | on Only | | MA | Labs 05/07/18) | +--------+ + + + + | 05/02/ | Office | | Karen Mesa | CAD in seldovia artery | | 2018 | Visit | | GIAN Samuel | (Primary Dx); | | | | | | Hypertension goal BP | | | | | | (blood pressure) < | | | | | | 140/80; Mixed | | | | | | hyperlipidemia; | | | | [...] CMT | | | | | | (Lphyesy-Ohuyo-Venoj | | | | | | disease); Current | | | | | | smoker; | | | | | | Pre-operative | | | | | | cardiovascular | | | | | | examination | +--------+ + + + + from Last 3 Months Family History Patient is adopted + + [...] AM PDT | + + + + Plan [...] | + + + + + | Lung Cancer | | | | | Screening | 2 | | | + + + + [...] +------+-------+ + | MEDICARE | MEDICA | [id number] | | | [address] | | | RE | | | | [place] [address] | | | IP-OP | | | | | + +--------+ +------+-------+ + | MEDICAID | MEDICA | [id number] | | | [address] | | | [place] | | | | [place] | | | [place] | | | | [address] | + +--------+ +------+-------+ + + +--------+ +--------+ + + | Guarantor Name | Accoun | Relation to | Date | Phone | Billing Address | | | t Type | Patient | of | | | | | | | | | | + +--------+ +--------+ + + | RODRÍGUEZ CHI | Person | Self | [birth year] | Home: | [address] | | | al/Fam | | 7 [phone] | [address] [place], | | | [place] | | | [phone] | [place] [address] | + +--------+ +--------+ + +
--- OUTSIDE RECORDS SUMMARY | ~2018-07-25 | XMS | Encounter Summary ---
Demographics + + + | Address | [address] | | | [place] [address] | + + + | Home Phone | | + + + | Preferred Language | Unknown | + + + | Marital Status | | + + + | Nondenominational Affiliation | Unknown | + + + | Race | Unknown | + + + | Ethnic Group | Unknown | + + + Author + + + | Author | [facility] | | | and [place] | + + + | Organization | [facility] | | | and [place] | + + + | Address | Unknown | + + + | Phone | Unavailable | + + + Support + + + + + | Name | Relationship | Address | Phone | + + + + + | Carol Ross | ECON | [address] | | | | | [place] | | | | | [address] | | + + + + + | Kaley King | ECON | [address] | | | | | [place] [address] | | + + + + + Care Team Providers + +------+ + | Care Auto Parts Manager Name | Role | Phone | + +------+ + | Edwin Clark DO | PCP | | + +------+ + Reason for Visit +--------+ + | Reason | Comments | +--------+ + | Other | | +--------+ + Encounter Details +--------+ + + + + | Date | Type | Department | Care Team | Description | +--------+ + + + + | 06/18/ | Telephone | [facility] | Edwin Clark, | Other | | 2017 | | [facility] | [address] | | | | | MEDICAL CLINIC [facility] | [place], [place] | | | | | [address] [facility], | [address] | | | | | [place] [address] | [phone] | | | | | [phone] | | | +--------+ + + + [...]
--- OUTSIDE RECORDS SUMMARY | ~2018-07-25 | XMS | Encounter Summary ---
Demographics + + + | Address | [address] | | | [place] [address] | + + + | Home Phone | | + + + | Preferred Language | Unknown | + + + | Marital Status | | + + + | Baptist Affiliation | 1013 | + + + | Race | Unknown | + + + | Ethnic Group | Unknown | + + + Author + + + | Author | [facility] | + + + | Organization | [facility] | + + + | Address | Unknown | + + + | Phone | Unavailable | + + + Support + + +---------+ + | Name | Relationship | Address | Phone | + + +---------+ + | Carol Ross | ECON | Unknown | | + + +---------+ + Care Team Providers + +------+ + | Care Import And Export Clerk Name | Role | Phone | + [...] + | 05/14/ | Documentati | SARA Burney | Sita Rowland, | Labs Only ([facility] | | 2018 | on Only | Kavon Wilkins | JOCELYN | Isidoro 05/07/18) | | | | [address] [facility] [address] | | | | | | [address] [facility] [address] | | | | | | [place] [address] | | | | | | [phone] | | | +--------+ + + + [...]
--- OUTSIDE RECORDS SUMMARY | ~2018-07-25 | XMS | Encounter Summary ---
Demographics + + + | Address | [address] | | | [place] [address] | + + + | Home Phone | | + + + | Preferred Language | Unknown | + + + | Marital Status | | + + + | Advent Affiliation | Unknown | + + + | Race | Unknown | + + + | Ethnic Group | Unknown | + + + Author + + + | Author | [facility] | | | and [place] | + + + | Organization | [facility] | | | and [place] | + + + | Address | Unknown | + + + | Phone | Unavailable | + + + Support + + + + + | Name | Relationship | Address | Phone | + + + + + | Carol Ross | ECON | [address] | | | | | [place] | | | | | [address] | | + + + + + | Kaley King | ECON | [address] [facility] [address] | | | | | [place] [address] | | + + + + + Care Team Providers + +------+ + | Care Woods Boss Name | Role | Phone | + +------+ + | Edwin Clark DO | PCP | | + +------+ + Reason for Visit + + + | Reason | Comments | + + + | Medication Related | Orders needed to delete a medication due to reactions | + + + Encounter Details +--------+ + + + + | Date | Type | Department | Care Team | Description | +--------+ + + + + | 07/15/ | Telephone | [facility] | Edwin Clark, | Medication Related | | 2018 | | [facility] | DO [address] | (Orders needed to | | | | [facility] [address] | [place], [place] | delete a medication | | | | [place], | [address] | due to reactions) | | | | [place] [address] | [phone] | | | | | [phone] | | | +--------+ + + + [...]
--- OUTSIDE RECORDS SUMMARY | ~2018-07-25 | XMS | Encounter Summary ---
Demographics + + + | Address | [address] | | | [place] [address] | + + + | Home Phone | | + + + | Preferred Language | Unknown | + + + | Marital Status | | + + + | Orthodoxy Affiliation | Unknown | + + + | Race | Unknown | + + + | Ethnic Group | Unknown | + + + Author + + + | Author | [facility] | | | and [place] | + + + | Organization | [facility] | | | and [place] | + + + | Address | Unknown | + + + | Phone | Unavailable | + + + Support + + + + + | Name | Relationship | Address | Phone | + + + + + | Carol Ross | ECON | [address] | | | | | [place] | | | | | [address] | | + + + + + | Kaley King | ECON | [address] [facility] [address] | | | | | [place] [address] | | + + + + + Care Team Providers + +------+ + | Care Prosthetic Dentist Name | Role | Phone | + [...] | DO [address] [place] | [facility] | | | | MEDICAL CLIN[facility] [address] | [place], [place] | Missing Paperwork | | | | [address] [place], | [address] | ([place] | | | | [place] [address] | [phone] | Assisted | | | | [phone] | | Living*Needs | | | | [...]
--- OUTSIDE RECORDS SUMMARY | ~2018-07-25 | XMS | Encounter Summary ---
Demographics + + + | Address | [address] | | | [place] [address] | + + + | Home Phone | | + + + | Preferred Language | Unknown | + + + | Marital Status | | + + + | Latter-Day Affiliation | Unknown | + + + | Race | Unknown | + + + | Ethnic Group | Unknown | + + + Author + + + | Author | [facility] | | | and [place] | + + + | Organization | [facility] | | | and [place] | + + + | Address | Unknown | + + + | Phone | Unavailable | + + + Support + + + + + | Name | Relationship | Address | Phone | + + + + + | Carol Ross | ECON | [address] | | | | | [place] | | | | | [address] | | + + + + + | Kaley King | ECON | [address] | | | | | [place] [address] | | + + + + + Care Team Providers + +------+ + | Care Cage Cashier Name | Role | Phone | + [...] | Other | | 2017 | | [facility] | [address] | | | | | MEDICAL CLINIC [facility] | [place], [place] | | | | | [address] [facility], | [address] | | | | | [place] [address] | [phone] | | | | | [phone] | | | +--------+ + + + [...]
--- OUTSIDE RECORDS SUMMARY | ~2018-07-25 | XMS | Encounter Summary ---
Demographics + + + | Address | [address] | | | [place] [address] | + + + | Home Phone | | + + + | Preferred Language | Unknown | + + + | Marital Status | | + + + | Mormonism Affiliation | Unknown | + + + | Race | Unknown | + + + | Ethnic Group | Unknown | + + + Author + + + | Author | [facility] | | | and [place] | + + + | Organization | [facility] | | | and [place] | + + + | Address | Unknown | + + + | Phone | Unavailable | + + + Support + + + + + | Name | Relationship | Address | Phone | + + + + + | Carol Ross | ECON | [address] | | | | | [place] | | | | | [address] | | + + + + + | Kaley King | ECON | [address] [facility] [address] | | | | | [place] [address] | | + + + + + Care Team Providers + +------+ + | Care Vp Platforms Name | Role | Phone | + +------+ + | Edwin Clark DO | PCP | | + +------+ + Encounter Details +--------+ + + + + | Date | Type | Department | Care Team | Description | +--------+ + + + + | 07/05/ | Orders Only | [facility] | Edwin Clark, | [facility]sec[facility]Xpfdg | | 2018 | | [facility] | [address] [place] | disease type 1 | | | | MEDICAL CL[facility] [address] | [facility], [place] | (Primary Dx); | | | | [address] [place], | [address] | Polyneuropathy due | | | | [place] [address] | [phone] | to medical condition | | | | [phone] | | (FORM[facility]LY [facility]); intermediate | | | | | | current [...] + | Diagnosis | + + | Mqupeim-Impdz-Mpkgr disease type 1 - Primary | + + | 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
--- OUTSIDE RECORDS SUMMARY | ~2018-07-25 | XMS | Encounter Summary ---
Demographics + + + | Address | [address] | | | [place] [address] | + + + | Home Phone | | + + + | Preferred Language | Unknown | + + + | Marital Status | | + + + | Druze Affiliation | Unknown | + + + | Race | Unknown | + + + | Ethnic Group | Unknown | + + + Author + + + | Author | [facility] | | | and [place] | + + + | Organization | [facility] | | | and [place] | + + + | Address | Unknown | + + + | Phone | Unavailable | + + + Support + + + + + | Name | Relationship | Address | Phone | + + + + + | Craol Ross | ECON | [address] | | | | | [place] | | | | | [address] | | + + + + + | Kaley King | ECON | [address] [email or web address] [address] | | | | | [place] [address] | | + + + + + Care Team Providers + +------+ + | Care Ship'S Carpenter Name | Role | Phone | + [...] | | | | [place], | [address] | due to reactions) | | | | [place] [address] | [phone] | | | | | [phone] | | | +--------+ + + + [...]
--- OUTSIDE RECORDS SUMMARY | ~2018-07-25 | XMS | Clinical Summary ---
Demographics + + + | Address | [address] | | | [place] [address] | + + + | Home Phone | | + + + | Preferred Language | Unknown | + + + | Marital Status | Single | + + + | Samaritan Affiliation | CAT | + + + | Race | White | + + + | Ethnic Group | Not or | + + + Author + + + | Author | [facility] | + + + | Organization | [facility] | + + + | Address | Unknown | + + + | Phone | Unavailable | + + + Care Team Providers + +------+ + | Care Button Reclaimer Name | Role | Phone | + +------+ + | No Pcp Per Patient | PP | Unavailable | + +------+ + Source Comments PERLA is fully live on both [facility] Ambulatory and [facility] InPatient.[facility] Allergies Not on File Current Medications [...] Last 3 Months Insurance + +--------+ +--------+ + + | Payer | Benefi | Subscriber | Type | Phone | Address | | | t Plan | ID | | | | | | / | | | | | | | Group | | | | | + +--------+ +--------+ + + | MEDICARE | MEDICA | xxxxxxxxxx | Medica | [phone] | [address] | | | RE A & | | re | [phone] | [place] [address] | | | B | | | | | + +--------+ +--------+ + + | MEDICAID [place] | MCAID | xxxxxxxx | Medica | [phone] | [address] [address] | | | QMM | | id | [phone] | [place] [address] | | | QMB | | | | | + +--------+ +--------+ + + + +--------+ +-------+ + + | Guarantor Name | Accoun | Relation to | Date | Phone | Billing Address | | | t Type | Patient | of | | | | | | | | | | + +--------+ +-------+ + + | KIRSTIE CHI W | Person | Other | | Home: | [address] | | | [place] | | | [phone] [place] [address] | | | [place] | | | [phone] | | + +--------+ +-------+ + +"
--- OUTSIDE RECORDS SUMMARY | ~2018-07-25 | XMS | Clinical Summary ---
Demographics + + + | Address | [address] | | | [place] [address] | + + + | Home Phone | | + + + | Preferred Language | Unknown | + + + | Marital Status | | + + + | Hindu Affiliation | 1013 | + + + | Race | Unknown | + + + | Ethnic Group | Unknown | + + + Author + + + | Author | [facility] | + + + | Organization | [facility] [employer] | + + + | Address | Unknown | + + + | Phone | Unavailable | + + + Support + + +---------+ + | Name | Relationship | Address | Phone | + + +---------+ + | Carol Ross | ECON | Unknown | | + + +---------+ + Care Team Providers + +------+ + | Care Forensic Anthropologist Name | Role | Phone | + [...] | 11/28/2017 | + + + | 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 Last Assessment & Plan: H/o CAD s/p PCI | | in [facility] for unknown vessel-2009No chest pain- | [...] | | Karen Mesa | CAD in chippe[place]-cree artery | | 2018 | Visit | [...] CMT | | | | | | (Tczlxys-Xgujx-Xfwqu | | | | | | disease); [...] +------+-------+ + | MEDICARE | MEDICA | [id number] | | | [address] | | | RE | | | | [place] [address] | | | IP-OP | | | | | + +--------+ +------+-------+ + | MEDICAID | MEDICA | [id number] | | | [address] | | | ID | | | | [place] | | | [place] | | | | [address] | + +--------+ +------+-------+ + + +--------+ +--------+ + + | Guarantor Name | Accoun | Relation to | Date | Phone | Billing Address | | | t Type | Patient | of | | | | | | | | | | + +--------+ +--------+ + + | RODRÍGUEZ CHI | Person | Self | [birth year] | Home: | [address] | | | al/Fam | | 7 [phone] | [address] [place], | | | [place] | | | [phone] | [place] [address] | + +--------+ +--------+ + +
--- OUTSIDE RECORDS SUMMARY | ~2018-07-25 | XMS | Encounter Summary ---
Demographics + + + | Address | [address] | | | [place] [address] | + + + | Home Phone | | + + + | Preferred Language | Unknown | + + + | Marital Status | | + + + | Episcopal Affiliation | 1013 | + + + | Race | Unknown | + + + | Ethnic Group | Unknown | + + + Author + + + | Author | [facility] | + + + | Organization | [facility] [employer] | + + + | Address | Unknown | + + + | Phone | Unavailable | + + + Support + + +---------+ + | Name | Relationship | Address | Phone | + + +---------+ + | Carol Ross | ECON | Unknown | | + + +---------+ + Care Team Providers + +------+ + | Care Stock Handler Floorperson Name | Role | Phone | + [...] [place] | Karen Mesa | CAD in [place] artery | | 2018 | Visit | Cardiology [place] | [address] | (Primary Dx); | | | | [address] | Meagan Carlson | Hypertension goal BP | | | | Way [address] | [place] [address] | (blood pressure) < | | | | [place] [address] | [phone] | 140/80; Mixed | | | | [phone] | | hyperlipidemia; | | | | [...] CMT | | | | | | (Zanuwwq-Vyqzi-Rbizu | | | | | | disease); [...] leg amputation by Dr. Brendan Alberts in [place]. He is a patient of Dr. Mckeon, and has also been seen Dr. Grimes in the past as well. He was last seen by Dr. Mckeon on May 02, 2016 He has a history of coronary artery disease and SC in 2008 with angioplasty and stentin g done while he lived in [facility] [place]. He also has a history of lower extremity edema, hypert ension, hyperlipidemia, diabetes, previous stroke ,Charcot Blanca tooth disease, cervical mot ion tenderness ,COPD, current smoker, and depression. He is followed 3 times per week by would care clinic at [facility] for non healing w ounds on feet [...] 2017. He brought his medication list from [place] ( [employer] (air [employer] and I reviewed personally. He is still [...] to be followed for his wounds at [facility] wound clinic I had previously reviewed their [...] wounds to feet and shins, followed by [facility] wound clinic. Denies color change. Denies rash [...] drug use. Wheelch air bound. Served in [employer], worked [employer] . Lives in Assisted care facility in [facility]. Hx MRSA Outpatient Medications Prior to [...] No results found for: METF, NMETFX, TFNMFX, EUBWERO93MQS, QUJPAF55CZL, TOTEPI PROCEDURES/ IMAGING : History PCI stent:/Angiogram [...] 0.82 Left TBI: 1.11 ECHO: Last Echo: ([facility]): 04/10/2018:SR. TDS EF 55-60 percent. LV [...] normal EKG, wondering baseline. Rate 72 bpm, GA 172 ms, QRS 86 ms, QTC 431 ms (done in W/C), reviewed by me EK04/09/2018: Normal sinus rhythm, normal EKG. low voltage QRS to limb leads poor R-wave progression Rate 67 bpm, GA 176 ms, QRS 88 ms, QTC 422 [...] as not done, and gave him signed copper tapper y , as well as faxed to [employer] . I will let him know about labs, and will see him back in one year,but will see him sooner if needed. 1. CAD in [place] artery 2. Hypertension goal BP (blood pressure) < 140/80 3. Mixed hyperlipidemia 4. History of stroke 5. Type 2 diabetes mellitus with foot ulcer, with long-term current use of insulin (HCC) 6. CMT (Xvecryn-Rrlay-Oqbjq disease) 7. Current smoker 8. Pre-operative cardiovascular examination No orders of the defined types were placed in this encounter. The following portions of the patient's history were personally reviewed by me and updated as appropriate: EKG tracings, other specialty provider and PCP notes, current and previous cardiac testing and procedure reports and data, documents on medication and history from care facility, med Istpikation bottles brought to clinic Allergies, current medications.labs Family history, past medical history, past social history, past surgical history. Problem list. GIAN Valdez [facility] Cardiology 05/04/2018in this encounter Plan of Treatment Not on fileas of this encounter Visit Diagnoses + + | Diagnosis | + + | CAD in [place] artery - Primary | + + | Coronary atherosclerosis of [place] coronary artery | + + | Hypertension [...] insulin (HCC) | + + | CMT (Nkliilm-Nqfaz-Vdnaz disease) | + + | Peroneal muscular atrophy | + + | Current smoker | + + | Tobacco use disorder | + + | Pre-operative cardiovascular examination | + +
--- OUTSIDE RECORDS SUMMARY | ~2018-07-25 | XMS | Clinical Summary ---
Demographics + + + | Address | [address] | | | [place] [address] | + + + | Home Phone | | + + + | Preferred Language | Unknown | + + + | Marital Status | Single | + + + | Taoist Affiliation | CAT | + + + | Race | White | + + + | Ethnic Group | Not or | + + + Author + + + | Author | [facility] | + + + | Organization | [facility] | + + + | Address | Unknown | + + + | Phone | Unavailable | + + + Care Team Providers + +------+ + | Care Personal Property Appraiser Name | Role | Phone | + +------+ + | No Pcp Per Patient | PP | Unavailable | + +------+ + Source Comments PERLA is fully live on both [facility] and [facility] InPatient.[facility] Allergies Not on File Current Medications Not [...] | MEDICA | xxxxxxxxxx | Medica | [phone] | [address] | | | RE A & | | re | [phone] | [place] [address] | | | B | | | | | + +--------+ +--------+ + + | MEDICAID [place] | MCAID | xxxxxxxx | Medica | [phone] | [address] [address] | | | QMM | | id | [phone] | [place] [address] | | | QMB | | | [...] Person | Other | | Home: | [address] | | | garth/Alexander | | | [phone] | [place] [address] | | | [place] | | | [phone] | | + +--------+ +-------+ + +"
--- OUTSIDE RECORDS SUMMARY | ~2018-07-25 | XMS | Encounter Summary ---
Demographics + + + | Address | [address] | | | [place] [address] | + + + | Home Phone | | + + + | Preferred Language | Unknown | + + + | Marital Status | | + + + | Yarsani Affiliation | Unknown | + + + | Race | Unknown | + + + | Ethnic Group | Unknown | + + + Author + + + | Author | [facility] | | | and [place] | + + + | Organization | [facility] | | | and [place] | + + + | Address | Unknown | + + + | Phone | Unavailable | + + + Support + + + + + | Name | Relationship | Address | Phone | + + + + + | Carol Ross | ECON | [address] | | | | | [place] | | | | | [address] | | + + + + + | Kaley King | ECON | [address] | | | | | [place] [address] | | + + + + + Care Team Providers + +------+ + | Care Consultant Electronics Name | Role | Phone | + [...] 2 diabetes | | 2018 | | [facility] | [address] [place] | mellitus with | | | | [facility] | [facility] [place] | hyperglycemia, | | | | [address] [place], | [address] | without long-term | | | | [place] [address] | [phone] | current use of | | | | [phone] | | insulin (HCC) | | | [...]
--- OUTSIDE RECORDS SUMMARY | ~2018-07-25 | XMS | Encounter Summary ---
Demographics + + + | Address | [address] | | | [place] [address] | + + + | Home Phone | | + + + | Preferred Language | Unknown | + + + | Marital Status | | + + + | Taoist Affiliation | Unknown | + + + | Race | Unknown | + + + | Ethnic Group | Unknown | + + + Author + + + | Author | [facility] | | | and [place] | + + + | Organization | [facility] | | | and [place] | + + + | Address | Unknown | + + + | Phone | Unavailable | + + + Support + + + + + | Name | Relationship | Address | Phone | + + + + + | Carol Ross | ECON | [address] | | | | | [place] | | | | | [address] | | + + + + + | Kaley King | ECON | [address] | | | | | [place] [address] | | + + + + + Care Team Providers + +------+ + | Care Salesperson Used Cars Name | Role | Phone | + [...] MEDICAL [facility] [address] | [facility], [place] | ([place] | | | | [address], | [address] | [place]) | | | | [place] [address] | [phone] | | | | | [phone] | | | +--------+ + + + [...]
[~2018-07-25 09:10] MED LIST changes: +BACLOFEN10 MG PO; +EUCERIN INTENS250 ML TOP; +FLOMAX0.4 MG PO; +FLONASE ALLERG9.9 ML NAS; +GLUCAGEN1 M1 IM; +GLUCOSE4 GM PO; +HYDROCODON-ACE1 EA11 PO; +MIRALAX17 GM PO; +NICORELIEF2 MG BUCCAL; +NORCO 5-325 TA1 EACH PO; +PLAVIX75 MG PO; +[UNRECOGNIZED DRUG - OTHER] TOP
== END 2018-07-25 12:06 | disposition home or self-care (01) ==
LOC: ED 09:10
PROC: 0HQNXZZ Repair Left Foot Skin, External Approach (ICD-10-PCS; principal; 2018-07-25)
DX: S91.115A Laceration without foreign body of left lesser toe(s) without damage to nail, initial encounter (principal); I10 Essential (primary) hypertension; E11.9 Type 2 diabetes mellitus without complications; F17.200 Nicotine dependence, unspecified, uncomplicated; Z80.0 Family history of malignant neoplasm of digestive organs; Z88.1 Allergy status to other antibiotic agents; Z88.8 Allergy status to other drugs, medicaments and biological substances; Z88.6 Allergy status to analgesic agent; Z88.5 Allergy status to narcotic agent; Z79.4 Long term (current) use of insulin; Z79.899 Other long term (current) drug therapy; X58.XXXA Exposure to other specified factors, initial encounter
CPT/HCPCS: 12001; 99283; 99406

== ENCOUNTER 2019-12-23 13:41 | Emergency (ER) | payer MEDICARE, OTHER ==
--- OUTSIDE RECORDS SUMMARY | 2019-12-23 13:48 | XMS ---
PreManage Notification: KIRSTIE CHI Security Photoresist Contact Printer Events No recent Security Events currently on file CRITERIA MET - PDM CARE PROVIDERS ELLIOTT POWELL [facility] Current PHONE: [phone] Candie Mullen Grab Jack Man/Drupal Developer 10/22/2019-Current PHONE: [phone] ELLIOTT DAUGHERTY [facility] Current PHONE: [phone] Candie Mullen Primary Care 10/22/2019-Current PHONE: [phone] Brendan Alberts Primary Care Current MD PHONE: Unknown ANDRE Mercer Primary Care Current PHONE: Unknown jonatan King or Soda Flaker Current PHONE: Unknown Alberta Garcia Primary Care Current PHONE: Unknown Tatyana Garcia Current Orthopedic Surgery \T\ Fracture Clinic PHONE: Unknown Keny has no Care Guidelines for this patient. Care History Medical/Surgical 02/26/2018 [facility] - Patient saw Dr Alberts the week of February 18. - Per RN , Dr Alberts recommended amputation, patient stated he would need to think about it and left without a rescheduled appointment. EKarishma VISIT COUNT (12 MO.) [address] Karen May 1 [facility] TOTAL 3 NOTE: Visits indicate total known visits. ED/UCC VISIT TRACKING (12 MO.) 12/23/2019 13:42 [facility]I BisonJoel KASPER TYPE: Emergency COMPLAINT: - SORE ON BUTTOCKS AND L LEG [facility]05[facility]2019 [facility] DIAGNOSES: - Encounter for removal of sutures - Stitch Removal 08/29/2019 09:34 [facility] Emergency DIAGNOSES: - Laceration w/o fb of l idx fngr w/o damage to nail, init - Finger Laceration - finger lac INPATIENT VISIT TRACKING (12 MO.) No inpatient visits to display in this time frame [id number]
== END 2019-12-23 14:04 | disposition left against medical advice (07) ==
LOC: ED 13:41
DX: Z53.21 Procedure and treatment not carried out due to patient leaving prior to being seen by health care provider (principal)

== ENCOUNTER 2019-12-25 11:08 | Inpatient (IN) | payer MEDICARE, OTHER ==
[~2019-12-25] VITALS: Ht 188 cm; Wt 117.9 kg
--- OUTSIDE RECORDS SUMMARY | 2019-12-25 11:12 | XMS ---
PreManage Notification: KIRSTIE CHI Security Deboner Events 1 event(s) in the past 18 months Most recent security events: Elopement at [facility] 12/23/2019 13:42 - Other Details: PATIENT LWBS. CRITERIA MET - [facility] - 2 Visits in 30 Days CARE PROVIDERS ELLIOTT POWELL [facility] Current PHONE: [phone] Candie Mullen Egg Worker/Dielectric Testing Machine Operator 10/22/2019-Current PHONE: [phone] CHERRY PEREZ Internal Medicine: Pulmonary Disease 12/24/2019-Current PHONE: Unknown ELLIOTT DAUGHERTY [facility] Current PHONE: [phone] Candie Mullen Primary Care 10/22/2019-Current PHONE: [phone] Brendan Alberts Primary Care Current MD PHONE: Unknown ELLIOTT POWELL Primary Care Current PHONE: [phone] or_trudy King or Clinical Genetics Laboratory Chief Current PHONE: Unknown Alberta Garcia Primary Care Current PHONE: Unknown [facility] Other Current Orthopedic Surgery \T\ Fracture Clinic PHONE: Unknown Keny has no Care Guidelines for this patient. Care History Medical/Surgical 12/24/2019 [facility] -PATIENT HAS AN APT ON 01/26/[address] DR CAREY. - Patient is currently established with [facility]. If patient is seen in the ED during business hours. Please contact CHWs at [facility]. - Care Recommendation: If this patient has had 5 or more Emergency Department visits in the last 12 months.\T\nbsp; Patient will require education on the scope and purpose of the ED as an acute care provider not a Primary Care Provider and should not be utilized for chronic conditions.\T\nbsp; These are guidelines and the provider should exercise clinical judgment when providing care. 02/26/2018 [facility] - Patient saw Dr Alberts the week of February 18. - Per RN , Dr Alberts recommended amputation, patient stated he would need to think about it and left without a rescheduled appointment. E.D. VISIT COUNT (12 MO.) 2 [facility] [address] [facility] TOTAL 4 NOTE: Visits indicate total known visits. ED/UCC VISIT TRACKING (12 MO.) 12/25/2019 11:09 [facility] [place] TYPE: Emergency COMPLAINT: - WOUND CHECK 12/23/2019 13:42 [facility] [place] TYPE: Emergency COMPLAINT: - SORE ON BUTTOCKS AND L LEG 09/05/2019 12:43 [facility] AlexMervat GIORDANO TYPE: Emergency DIAGNOSES: - Encounter for removal of sutures - Stitch Removal 08/29/2019 09:34 [facility] AlexMervat GIORDANO TYPE: Emergency DIAGNOSES: - Laceration w/o fb of l idx fngr w/o damage to nail, init - Finger Laceration - finger lac INPATIENT VISIT TRACKING (12 MO.) No inpatient visits to display in this time frame [id number]
[2019-12-26] MEDS ORDERED: LYRICA150 MG PO (16:49)
[2019-12-26] MEDS ORDERED: BASAGLAR K100 UNIT/1 SUB-Q (16:51)
[2019-12-26] MEDS ORDERED: B-121000 MC2 PO (16:55)
[2019-12-26] MEDS ORDERED: FERROUS SULFAT325 MG PO (16:56)
[2019-12-26] MEDS ORDERED: OXYCODONE HCL10 MG PO (17:04)
[2019-12-26] MEDS ORDERED: FAMOTIDINE20 MG PO (17:09)
--- NOTE | 2019-12-27 07:36 | EKG ---
[facility] [address] [facility] [place], [place] [address] Signed Normal sinus rhythm Normal ECG No previous ECGs available Confirmed by SASCHA NG MD ([id number]) on 12/27/2019 7:35:57 AM Electronically Signed By: SASCHA NG MD 12/27/19 0736 PATIENT NAME: KIRSTIE CHI Electrocardiogram DATE OF : 59 PHYSICIAN: SASCHA NG MD REPORT #: [id number] REPORT IS CONFIDENTIAL AND NOT TO BE RELEASED WITHOUT AUTHORIZATION
--- NOTE | 2019-12-28 18:08 | CONS ---
[facility] [address] [place], [place] [address] Signed DATE OF CONSULTATION: 12/25/2019 TIME: 9:30 p.m. CONSULTING PHYSICIAN: Ritesh Lance MD REQUESTING PHYSICIAN: Dr. Delgado. PROBLEM: Left hip chronic wound and superficial coccygeal decubitus, incidental finding of left foot edema with underlying Uasfhzy-Qpmqg-Kpkic disease. HISTORY OF PRESENT ILLNESS: This morbidly obese 64-year-old man is known to this institution from the past having undergone right below-knee amputation by Dr. Brendan Alberts in May 2018. He presented to the emergency room with a foul-smelling necrotic wound in his left lateral hip and recent care for a sacral or coccygeal decubitus with a padded dressing. The patient is wheelchair bound and has no ambulatory capability at all. His underlying problems include type 2 diabetes, coronary artery disease with stenting, chronic pain syndrome, hyperlipidemia, reflux, and restless legs syndrome, as well as smoking. He smokes half pack of cigarettes a day. He lives at the [facility] ALLERGIES: He has extensive allergies including penicillin, Ancef, gabapentin, guaifenesin, ketorolac, lisinopril, propoxyphene, and tramadol. MEDICATIONS: He has numerous medications, which include Atorvastatin, insulin metoprolol, buspirone, duloxetine, metformin, omeprazole, Zantac, vitamin C, DSS, melatonin, pregabalin (Lyrica), ropinirole, aspirin, clindamycin ointment, clotrimazole ointment, isosorbide dinitrate, Silvadene application to recent left foot, baclofen, clopidogrel, Flomax, and MiraLax. He is apparently also taking oxycodone and hydrocodone, Tylenol combination. He was noted by Dr. Delgado to have a very foul smelling 50-cent piece size ulceration of his left lateral trochanteric area and consultation was made on that basis. The patient has a generally disagreeable disposition regarding cooperation in his care Electronically Signed By: RITESH LANCE MD 12/28/19 1808 PATIENT NAME: KIRSTIE CHI CONSULTATION DATE OF : 59 REPORT #: [id number] PHYSICIAN: RITESH LANCE MD PCP: NO PRIMARY CARE PHYSICIAN REPORT IS CONFIDENTIAL AND NOT TO BE RELEASED WITHOUT AUTHORIZATION [facility] [address] [place] [id number] Signed from what I gather. He still wants to leave the premises of the hospital to smoke, which is not being allowed. He has had no fever, chills, any nausea. He denies any pain in his left foot, though he has noted some swelling in the area. He denies much pain in the left lateral hip area as well. He has had treatment with a wound VAC device to his remaining left foot and has no open sore in that area now. The patient has been wheelchair bound for quite some time. Pressure on his left lateral hip area (trochanteric prominence) is seldom appreciated by the patient with his wheelchair device. PHYSICAL EXAMINATION: GENERAL: A morbidly obese white man with a dale and mustache. He is alert and oriented without signs of systemic toxicity. He has a somewhat thomas complexion. CHEST: Shows normal respiratory excursion. He has no cough. HEART: Regular. ABDOMEN: Quite obese, but soft. EXTREMITIES: Examination of lower extremities shows on the left lateral trochanteric prominence, a 50-cent piece sized foul-smelling greenish dark necrotic ulceration. He has a right below-knee amputation with a stump that is well healed. No sign of ulceration or tenderness. The left foot has some edema and mild erythema suggestive of typical of Charcot foot. There is no tenderness that I can elicit. LABORATORY STUDIES: Show normal electrolytes. Creatinine is elevated at 1.43, glucose 251. Liver enzymes are normal with ProTime is 12 nine with an INR of 1.0. White count is 8.3, hematocrit 42.4, platelets 199,000. Ankle view on the left shows soft tissue edema without associated bony abnormality or signs of osteomyelitis. Pelvic x-ray shows indistinct cortical margin in the right ischial tuberosity. No evidence of left trochanteric abnormality. Bilateral hip degenerative joint disease is noted. Chest x-ray is essentially normal. Further examination of the coccyx shows a soft adherent dressing and very superficial ulceration without deep tissue defect consistent with a decubitus ulceration. The left gluteal cleft shows no fluctuance and left lower extremity heel ulceration appears to be dry eschar with mild erythema without sign of fluctuant area. ASSESSMENT: Electronically Signed By: RITESH LANCE MD 12/28/19 9053 PATIENT NAME: KIRSTIE CHI CONSULTATION DATE OF : 59 REPORT #: [id number] PHYSICIAN: RITESH LANCE MD PCP: NO PRIMARY CARE PHYSICIAN REPORT IS CONFIDENTIAL AND NOT TO BE RELEASED WITHOUT AUTHORIZATION [address] [address] Signed The patient has a necrotic wound over the left trochanteric prominence, for which sharp debridement is necessary. This may necessitate to use the wound VAC versus other dressing techniques. His underlying Defipuc-Elkou-Dsrwr disease with neurologic compromise precludes warning sign of pain for development of such pressure ulcerations as he is in his wheelchair essentially full-time. Coccygeal decubitus is small and superficial, so far as I can see and the left gluteal crease shows no sign of drainable purulence at this time. The patient has mostly history of food and having his nighttime dose of Requip for his restless legs syndrome and also wishes to smoke. I told him that would not be possible, but the nicotine patch was available. He said that the nicotine patch is ineffective for him, only nicotine gum works. We granted him that request and he says he needs a higher dose than usual between 2 and 4 sticks of gum to have beneficial affect that can be arranged. I discussed with him a consideration for debridement of his left lateral decubitus ulcer tomorrow. This would be done under some form of anesthesia as he does not have full sensation in the area, but could have a sympathetic effect with sharp debridement, those details will be reviewed with the pad making machine operator. We will additionally examine his buttock area more fully under anesthesia, though I do not feel it is likely he has an undrained fluid collection or true necrotic tissue in the area. He is already being covered with vancomycin and aztreonam as outlined by Dr. Delgado. His medicines will be continued for the time being. I would advise that his Charcot foot will be evaluated by the test car driver team, Dr. Huber and is less likely that debridement would be undertaken in that area. Consideration has been made for left below-knee amputation given the poor health of his foot and lack of function for it anyway, but he is certainly not interested in such finding at this time. Ritesh Lance MD JM/MODL /[id number] cc: Birgit Delgado MD Electronically Signed By: RITESH LANCE MD 12/28/19 1808 PATIENT NAME: KIRSTIE CHI CONSULTATION DATE OF : 59 REPORT #: [id number] PHYSICIAN: RITESH LANCE MD PCP: NO PRIMARY CARE PHYSICIAN REPORT IS CONFIDENTIAL AND NOT TO BE RELEASED WITHOUT AUTHORIZATION [address] [address] Signed Copies: BIRGIT DELGADO Electronically Signed By: RITESH LANCE MD 12/28/19 1808 PATIENT NAME: KIRSTIE CHI CONSULTATION DATE OF : 59 REPORT #: [id number] PHYSICIAN: RITESH LANCE MD PCP: NO PRIMARY CARE PHYSICIAN REPORT IS CONFIDENTIAL AND NOT TO BE RELEASED WITHOUT AUTHORIZATION
--- NOTE | 2019-12-28 18:08 | OR ---
[facility] [address] [place], [place] [address] Signed DATE OF OPERATION: 12/26/2019 SURGEON: Ritesh Lance MD PREOPERATIVE DIAGNOSES: 1. Left greater trochanter pressure ulcer with necrotic skin, fat, and fascia (4 cm). 2. Small superficial coccygeal decubitus. 3. Qkiidlg-Dmnze-Lljgr disease. POSTOPERATIVE DIAGNOSES: 1. Left greater trochanter pressure ulcer with necrotic skin, fat, and fascia (4 cm). 2. Small superficial coccygeal decubitus. 3. Frmcush-Fsdtq-Bgflj disease. PROCEDURES PERFORMED: 1. Debridement of necrotic tissue of left trochanteric prominence including fat, subcutaneous tissue, fascia of muscle, and portions of skin. 2. Application of negative pressure wound device (SNAP device). 3. Application of DuoDerm to superficial coccygeal decubitus. ANESTHESIA: General LMA, David Mcginnis CRNA. INDICATION: This 64-year-old morbidly obese white man was admitted by Dr. Delgado yesterday and is known to have Uvhsfve-Gphoq-Botbg disease causing significant neurologic disability. He is essentially wheelchair bound. He has undergone right below-knee amputation by Dr. Brendan Alberts in 2018. He does have a Charcot foot on the left side, chronic wound issues there, but no open wounds, but presented with a foul-smelling necrotic defect in his left lateral trochanteric prominence. This has obviously necrotic material after which debridement is needed. He is also considered to have an ischial tuberosity inflammation based on recent imaging study and as well as a superficial coccygeal decubitus. He is admitted to undergo exam under anesthesia and debridement of the left greater trochanter decubitus as well as evaluation of the ischial tuberosity on the left and the coccygeal area. He understands the risks of bleeding, infection, failure to cure the problem, and other unforeseen complications and wished to proceed. FINDINGS: Electronically Signed By: RITESH LANCE MD 12/28/19 1808 PATIENT NAME: KIRSTIE CHI OPERATIVE REPORT DATE OF : 59 REPORT #: [id number] PHYSICIAN: RITESH LANCE MD PCP: NO PRIMARY CARE PHYSICIAN REPORT IS CONFIDENTIAL AND NOT TO BE RELEASED WITHOUT AUTHORIZATION [facility] [address] [place], [place] [address] Signed Coccygeal area had a very superficial decubitus. This was ultimately covered with a DuoDerm dressing. As regard to lateral left trochanteric decubitus, this had foul-smelling necrotic material for which debridement was undertaken to completely viable tissue. A negative pressure wound device (SNAP) was applied with good benefit. DESCRIPTION OF PROCEDURE: The patient was brought to the operating room, given a general anesthetic by LMA technique. He was placed in the lateral decubitus position right side down with good support. A soft dressing of his coccygeal area was removed. The buttocks and so forth were prepared with a Betadine based solution and draped sterilely. Examination of the coccygeal area showed a superficial coccygeal decubitus requiring no debridement. Examination of the foul-smelling necrotic wound on the left trochanteric prominence was undertaken allowing for sharp debridement delivering a bishop necrotic material including fat, portions of skin, and fascia. Debridement was undertaken more deeply with a Banjo curette ultimately down to very pink and viable tissue. Once completely debrided, irrigation was undertaken. A SNAP device for negative pressure wound therapy was deemed most advisable. A segment was cut and placed in the wound and the SNAP device applied. He was returned to supine position, ultimately extubated and transferred to recovery room in good condition. He suffered no complication. Blood loss was relatively minimal. MD ROMÁN Todd/MODL /[id number] cc: Birgit Delgado MD Copies: BIRGIT DELGADO DO ~ Electronically Signed By: RITESH LANCE MD 12/28/19 1808 PATIENT NAME: KIRSTIE CHI OPERATIVE REPORT DATE OF : 59 REPORT #: [id number] PHYSICIAN: RITESH LANCE MD PCP: NO PRIMARY CARE PHYSICIAN REPORT IS CONFIDENTIAL AND NOT TO BE RELEASED WITHOUT AUTHORIZATION
[2019-12-29] MEDS ORDERED: CLINDAMYCIN HC300 MG PO (10:27)
--- NOTE | 2019-12-30 15:07 | PATH ---
[facility] [address] [facility] [address] [place], [place] [address] Signed SPECIMEN(S): A PRODUCTS OF DEBRIDEMENT SPECIMEN SOURCE: A. PRODUCTS OF DEBRIDEMENT CLINICAL HISTORY: Left trochanteric decubitus. FINAL PATHOLOGIC DIAGNOSIS: "Left trochanteric decubitus", debridement: - Fragments of partially viable soft tissue with acute inflammation and granulation tissue formation. - Fragments of necrotic soft tissue. - No evidence of malignancy. - See comment. COMMENT: Correlation with microbiological studies is recommended. NAL:cml:C2NR MICROSCOPIC EXAMINATION: Histologic sections of all submitted blocks are examined by light microscopy. These findings, together with the gross examination, support the pathologic diagnosis. GROSS DESCRIPTION: The specimen, labeled "BB, A," and designated on the requisition "products of debridement," is received in formalin and consists of a 2.6 x 2.5 x 1.4 cm aggregate of dusky brown-bishop softened tissue. Clerical Dentist Assistant sections are submitted in cassette (A1). FB (under the direct supervision of a pathologist) The Gross Description was prepared using a voice recognition system. The report was reviewed for accuracy; however, sound-alike word errors, addition and/or deletions may occur. If there is any question about this report, please contact Client Services. PERFORMING LABORATORY: The technical component was performed by [facility], [address] [place] [id number] (Ticket Agent: Wen King MD; CLIA# [id number]). [facility], [address] [facility]. [address], PATIENT NAME: KIRSTIE CHI PATHOLOGY DATE OF : 59 REPORT #: [id number] PHYSICIAN: [facility] PCP: CORIN CAREY MD REPORT IS CONFIDENTIAL AND NOT TO BE RELEASED WITHOUT AUTHORIZATION [address] [place] [address] Signed [place] [address] (CLIA# [id number]). Diagnostician: Ananya De La Rosa MD Pathologist Electronically Signed 12/30/2019 Copies: ~ PATIENT NAME: KIRSTIE CHI PATHOLOGY DATE OF : 59 REPORT #: [id number] PHYSICIAN: [facility] PCP: CORIN CAREY MD REPORT IS CONFIDENTIAL AND NOT TO BE RELEASED WITHOUT AUTHORIZATION
== END 2019-12-29 14:35 | disposition home health service (06) | DRG 579 ==
LOC: ED 11:08 → MS 11:10
PROVIDERS: Surgery; ADMIT Student in an Organized Health Care Education/Training Program
PROC: 0KBP0ZZ Excision of Left Hip Muscle, Open Approach (ICD-10-PCS; principal; 2019-12-26 12:15)
DX: L03.116 Cellulitis of left lower limb (principal); L89.224 Pressure ulcer of left hip, stage 4; L89.623 Pressure ulcer of left heel, stage 3; E11.621 Type 2 diabetes mellitus with foot ulcer; L89.522 Pressure ulcer of left ankle, stage 2; E11.51 Type 2 diabetes mellitus with diabetic peripheral angiopathy without gangrene; L89.151 Pressure ulcer of sacral region, stage 1; G60.0 Hereditary motor and sensory neuropathy; I25.10 Atherosclerotic heart disease of native coronary artery without angina pectoris; G89.4 Chronic pain syndrome; K21.9 Gastro-esophageal reflux disease without esophagitis; G25.81 Restless legs syndrome; E78.5 Hyperlipidemia, unspecified; E66.01 Morbid (severe) obesity due to excess calories; F17.210 Nicotine dependence, cigarettes, uncomplicated; N40.0 Benign prostatic hyperplasia without lower urinary tract symptoms; Z99.3 Dependence on wheelchair; Z95.5 Presence of coronary angioplasty implant and graft; Z89.511 Acquired absence of right leg below knee; Z88.1 Allergy status to other antibiotic agents; Z88.5 Allergy status to narcotic agent; Z88.0 Allergy status to penicillin; Z88.7 Allergy status to serum and vaccine; Z79.02 Long term (current) use of antithrombotics/antiplatelets; Z79.82 Long term (current) use of aspirin; Z79.4 Long term (current) use of insulin; Z79.891 Long term (current) use of opiate analgesic; Z79.899 Other long term (current) drug therapy; Z68.33 Body mass index [BMI] 33.0-33.9, adult
CPT/HCPCS: 36415; 71045; 72170; 73610; 80048; 80053; 80202; 83605; 83735; 85025; 85610; 85730; 93005; 93010; 93971; 99284-25; J1610; J1815; J2001; J2370; J2405; J2704; J3010; J3370; J3475; J3490; J7060; J7121